=== PATIENT | female | born 1935 | race Caucasian/White ===

== ENCOUNTER 2016-06-15 23:33 | Inpatient (IN) ==
--- NOTE | 2016-06-15 23:45 | Emergency Department Note ---
Disposition Clinical Impression: Acute renal insufficiency Urinary tract infection Qualifiers: Urinary tract infection type: site unspecified Hematuria presence: without hematuria Qualified Code(s): N39.0 - Urinary tract infection, site not specified Nausea and vomiting Qualifiers: Vomiting type: unspecified Vomiting Intractability: non-intractable Qualified Code(s): R11.2 - Nausea with vomiting, unspecified Disposition: Admitted As Inpatient Condition: Fair Forms: ED Satisfaction Letter Time of Disposition: 02:41 Nausea/Vomiting/Diarrhea HPI - General Chief complaint: ED Nausea/Vomiting/Diarrhea Stated complaint: N/V Time Seen by Provider: 06/15/16 23:34 Source: patient, EMS Limitations: no limitations Nursing Notes Reviewed: Yes Vital Signs Reviewed: Yes - History of Present Illness HPI Narrative: 80-year-old female is brought to the emergency department for evaluation of nausea, vomiting, and abdominal pain that began 2 days ago. She states that her nausea and vomiting became suddenly worse this evening. She claims to have had 3 episodes of vomiting since early this evening. She states that her emesis is brownish in color. She denies any constipation, or diarrhea. She also complains of some right upper quadrant and right lower quadrant abdominal pain. She states she has a history of a hernia, but has not noticed any change in appearance to this area. She denies any fever, but complains of subjective chills. She denies any known sick contacts or recent foreign travel. She denies any blood in her emesis or in her stool. She does complain of some suprapubic pain and discomfort as well. She denies any chest pain, cough, or shortness of breath. Pt Subjective Complaint: nausea, vomiting, abdominal pain Onset (ago): day(s) (2 days) Number of episodes of emesis: 3 (Since early this evening) Associated Abdominal Pain: Yes If pain, Location of pain: RUQ, RLQ Severity: moderate Severity scale (1-10): 5 Quality: aching Improves with: nothing Worsens with: nonthing Associated symptoms: Reports: fever/chills (Subjective chills). Denies: chest pain, cough, shortness of breath - Related Data Home Medications Medication Instructions Recorded Confirmed Ascorbate Calcium [Vitamin C] 500 mg PO DAILY 04/15/15 02/07/16 Aspirin [Adult Low Dose Aspirin EC] 81 mg PO DAILY 04/15/15 02/07/16 Atorvastatin Calcium [Lipitor] 40 mg PO DAILY 04/15/15 02/07/16 Bisacodyl [Dulcolax] 5 mg PO DAILY PRN 04/15/15 02/07/16 Budesonide/Formoterol 160/4.5 2 puff IH BID 04/15/15 02/07/16 [Symbicort 160/4.5] Clopidogrel [Plavix] 75 mg PO DAILY 04/15/15 02/07/16 Ferrous Sulfate 325 mg PO DAILY 04/15/15 02/07/16 Folic Acid 1 mg PO DAILY #0 04/15/15 02/07/16 Furosemide [Lasix] 40 mg PO BID PRN 04/15/15 02/07/16 GlipiZIDE [Glipizide Xl] 5 mg PO DAILY 04/15/15 02/07/16 Lansoprazole [Prevacid] 30 mg PO DAILY 04/15/15 02/07/16 Levalbuterol HCl [Xopenex Neb] 1.25 mg IH QID PRN 04/15/15 02/07/16 Levothyroxine [Synthroid] 75 mcg PO DAILY 04/15/15 02/07/16 Meclizine [Antivert] 12.5 mg PO QID PRN 04/15/15 02/07/16 Metformin HCl [Fortamet] 500 mg PO BIDWM 04/15/15 02/07/16 Metoclopramide HCl 5 mg PO QID PRN 04/15/15 02/07/16 Metoprolol XL (24 HR) Succ [Toprol 25 mg PO DAILY 04/15/15 02/07/16 Xl] Oxycodone HCl/Acetaminophen 1 tab PO Q6H PRN 04/15/15 02/07/16 [Percocet 10-325 mg Tablet] Sertraline HCl [Zoloft] 100 mg PO DAILY 04/15/15 02/07/16 Gabapentin [Neurontin] 300 mg PO TID 11/26/15 02/07/16 Lisinopril [Zestril] 20 mg PO DAILY 11/26/15 02/07/16 Previous Rx's Medication Instructions Recorded Nystatin POWDER [Nystop] 1 appl TP TID #1 bottle 01/04/16 PredniSONE 40 mg PO DAILY 3 Days 01/04/16 Amiodarone [Cordarone] 200 mg PO DAILY #30 tablet 02/25/16 Diltiazem CD (24hr) [Cardizem CD] 360 mg PO DAILY #30 cap.er.24h 02/25/16 Metoprolol XL (24 HR) Succ [Toprol 75 mg PO DAILY #30 tab.er.24h 02/25/16 Xl] PredniSONE 40 mg PO DAILY #5 tablet 02/25/16 Allergies Allergy/AdvReac Type Severity Reaction Status Date / Time Sulfa (Sulfonamide Allergy Severe Swelling Verified 05/03/16 14:43 Antibiotics) of Lip/Tongue/Throat All systems ED: reviewed and negative except as stated. Constitutional: Denies: fever, chills, weakness, weight change Eyes: Denies: eye pain, eye discharge, vision change ENT ED: Denies: ear pain, throat pain, dental pain, hearing loss, epistaxis, congestion, dysphagia Cardiovascular: Denies: chest pain, palpitations, dyspnea on exertion, edema, syncope Respiratory: Denies: cough, dyspnea, wheezes, hemoptysis, stridor Gastrointestinal: Reports: as per HPI, abdominal pain, nausea, vomiting. Denies : diarrhea, constipation, hematemesis, melena, hematochezia Genitourinary: Denies: dysuria, frequency, hematuria, discharge Musculoskeletal: Denies: back pain, neck pain, arthralgia, myalgia Integumentary: Denies: rash, abrasion, lesions Neurological: Denies: headache, weakness, numbness, paresthesias, confusion, abnormal gait, vertigo Psychiatric: Denies: anxiety, depression, suicidal thoughts, homicidal thoughts , auditory hallucinations, visual hallucinations Endocrine: Denies: fatigue Hematological/Lymphatic: Denies: easy bleeding, easy bruising Allergic/Immunologic: Denies: facial swelling, urticaria Past Medical History - Past Medical History Attestation: Yes The following information was validated with the patient. Source: patient Medical history: Reports: atrial fibrillation, cancer, CHF, COPD, CVA, diabetes , hyperlipidemia, hypertension, myocardial infarction Surgical history: Reports: carotid endarterectomy, herniorrhaphy, hysterectomy Psychiatric history: Reports: no psych history - Social History Smoking Status: Never smoker Smokeless Tobacco Status: No Alcohol use: Reports: none Drug use: Reports: none Physical Exam - General Limitations: no limitations General appearance: alert, in no apparent distress - Head Head exam: atraumatic, normocephalic, normal inspection - Eye Eye exam: Present: normal appearance, PERRL, EOMI. Absent: nystagmus - ENT ENT exam: mucous membranes moist - Neck Neck exam: Present: normal inspection, full ROM, trachea midline - Chest Chest inspection: Present: normal inspection, symmetric chest wall rise - Respiratory Respiratory exam: Present: normal lung sounds bilaterally. Absent: respiratory distress, wheezes, stridor, accessory muscle use, prolonged expiratory phase - Cardiovascular Cardiovascular exam: Present: regular rate, normal rhythm, normal heart sounds - Abdominal Exam Abdominal exam: Present: soft, tenderness, hernia (Large hernia noted, right lower quadrant. Patient states appearance unchanged.). Absent: distention, guarding, rebound, rigidity Abdominal tenderness: Present: suprapubic, moderate - Extremities Exam Extremities exam: Present: normal inspection, full ROM. Absent: tenderness, pedal edema - Back Exam Back exam: Present: normal inspection, full ROM. Absent: tenderness - Neurological Exam Neurological exam: Present: alert, oriented X3 - Psychiatric Psychiatric exam: Present: normal affect, normal mood - Skin Skin exam: Present: warm, dry, intact, normal color Course Course Narrative: I have discussed this patient's case with Dr. Harper. Dr. Harper has had a face -to-face evaluation with the patient. He recommends admission to the hospitalist service for further evaluation of her renal function as well as a urinary tract infection/nausea and vomiting. 0230: I spoke with Dr. Gonzalez of the hospitalist service. She accepts the patient for admission. Vital Signs Temperature 97.7 F 06/15/16 23:34 Pulse Rate 65 06/15/16 23:34 Respiratory Rate 18 06/15/16 23:34 Blood Pressure 109/52 06/15/16 23:34 O2 Sat by Pulse Oximetry 97 06/15/16 23:34 Temperature 97.7 F 06/15/16 23:34 Pulse Rate 70 06/16/16 01:22 Respiratory Rate 18 06/16/16 01:22 Blood Pressure 90/46 06/16/16 01:22 O2 Sat by Pulse Oximetry 99 06/16/16 01:22 Oxygen Delivery Oxygen Delivery Nasal Cannula Nausea/Vomiting/Diarrhea - Medical Records Medical records reviewed: Yes I reviewed the patient's medical records. - Lab Data Lab results reviewed: Yes I reviewed the patient's lab results. Lab results narrative: Laboratory Last Values WBC 15.2 K/mcL (4.3-11.1) H 06/15/16 23:54 RBC 4.19 M/mcL (3.82-4.97) 06/15/16 23:54 Hgb 12.7 g/dL (11.5-15.4) 06/15/16 23:54 Hct 38.0 % (35.3-44.9) 06/15/16 23:54 MCV 90.7 fL (83.0-100.0) 06/15/16 23:54 MCH 30.3 pg (28.0-33.3) 06/15/16 23:54 MCHC 33.4 g/dL (31.6-35.5) 06/15/16 23:54 RDW 12.7 % (11.5-14.5) 06/15/16 23:54 Plt Count 183 K/mcL (140-400) 06/15/16 23:54 MPV 11.5 fL (9.4-12.4) 06/15/16 23:54 Immature Gran % 0.5 % (0-4) 06/15/16 23:54 Seg Neutrophils % 88.3 % 06/15/16 23:54 Lymphocytes % 6.1 % 06/15/16 23:54 Monocytes % 4.5 % 06/15/16 23:54 Eosinophils % 0.4 % 06/15/16 23:54 Basophils % 0.2 % 06/15/16 23:54 Neutrophils # 13.5 K/mcL (1.6-8.9) H 06/15/16 23:54 Lymphocytes # 0.9 K/mcL (0.6-4.6) 06/15/16 23:54 Monocytes # 0.7 K/mcL (0.0-1.3) 06/15/16 23:54 Eosinophils # 0.1 K/mcL (0.0-0.6) 06/15/16 23:54 Basophils # 0.0 K/mcL (0.0-0.2) 06/15/16 23:54 Sodium 137 mEq/L (136-145) 06/15/16 23:54 Potassium 4.3 mEq/L (3.5-4.5) 06/15/16 23:54 Chloride 96 mEq/L (98-109) L 06/15/16 23:54 Carbon Dioxide 28 mEq/L (19-29) 06/15/16 23:54 BUN 36 mg/dL (7-20) H 06/15/16 23:54 Creatinine 1.38 mg/dL (0.57-1.11) H 06/15/16 23:54 Est GFR ( Amer) 45 (> 60) L 06/15/16 23:54 Est GFR (Non-Af Amer) 37 (> 60) L 06/15/16 23:54 BUN/Creatinine Ratio 26 (6-26) 06/15/16 23:54 Glucose 166 mg/dL (70-99) H 06/15/16 23:54 Calculated Osmolality 296 (280-300) 06/15/16 23:54 Calcium 8.8 mg/dL (8.6-10.8) 06/15/16 23:54 Total Bilirubin 0.5 mg/dL (0.2-1.2) 06/15/16 23:54 Direct Bilirubin 0.2 mg/dL (0.0-0.5) 06/15/16 23:54 Indirect Bilirubin 0.3 mg/dL (0.0-1.2) 06/15/16 23:54 AST 20 Units/L (5-34) 06/15/16 23:54 ALT 12 Units/L (0-55) 06/15/16 23:54 Alkaline Phosphatase 79 Units/L (38-126) 06/15/16 23:54 Serum Total Protein 6.1 g/dL (6.0-8.3) 06/15/16 23:54 Albumin 3.4 g/dL (3.5-5.0) L 06/15/16 23:54 Globulin 2.7 g/dL (2.4-3.5) 06/15/16 23:54 Albumin/Globulin Ratio 1.3 (1.1-2.2) 06/15/16 23:54 Lipase 53 Units/L (8-78) 06/15/16 23:54 Urine Color Dark Yellow (Yellow) 06/16/16 00:17 Urine Clarity Cloudy (Clear) A 06/16/16 00:17 Urine pH 5.5 pH Units (5.0-8.0) 06/16/16 00:17 Ur Specific [place] 1.020 (1.010-1.025) 06/16/16 00:17 Urine Protein Negative mg/dL (Neg-Trace) 06/16/16 00:17 Urine Glucose (UA) Normal mg/dL (Normal) 06/16/16 00:17 Urine Ketones Trace mg/dL (Negative) H 06/16/16 00:17 Urine Blood Negative (Negative) 06/16/16 00:17 Urine Nitrite Negative (Negative) 06/16/16 00:17 Urine Bilirubin Small (Negative) H 06/16/16 00:17 Urine Urobilinogen Normal mg/dL (Normal) 06/16/16 00:17 Ur Leukocyte Esterase Large (Negative) H 06/16/16 00:17 Urine Microscopic RBC 0-3 per hpf (0-3) 06/16/16 00:17 Urine Microscopic WBC 50-100 per hpf (0-3) H 06/16/16 00:17 Ur Squamous Epith Cells Many per lpf (None-Few) H 06/16/16 00:17 Urine Bacteria Many per hpf (None-Few) H 06/16/16 00:17 Hyaline Casts Few per lpf (None-Few) 06/16/16 00:17 Ur Culture Indicated? YES (NO) A 06/16/16 00:17 Result diagrams: 06/15/16 23:54 06/15/16 23:54 Lab Results 06/15/16 06/15/16 06/15/16 Range/Units 23:54 23:54 23:54 WBC 15.2 H (4.3-11.1) K/mcL RBC 4.19 (3.82-4.97) M/mcL Hgb 12.7 (11.5-15.4) g/dL Hct 38.0 (35.3-44.9) % MCV 90.7 (83.0-100.0) fL MCH 30.3 (28.0-33.3) pg MCHC 33.4 (31.6-35.5) g/dL RDW 12.7 (11.5-14.5) % Plt Count 183 (140-400) K/mcL MPV 11.5 (9.4-12.4) fL Immature Gran % 0.5 (0-4) % Seg Neutrophils % 88.3 % Lymphocytes % 6.1 % Monocytes % 4.5 % Eosinophils % 0.4 % Basophils % 0.2 % Neutrophils # 13.5 H (1.6-8.9) K/mcL Lymphocytes # 0.9 (0.6-4.6) K/mcL Monocytes # 0.7 (0.0-1.3) K/mcL Eosinophils # 0.1 (0.0-0.6) K/mcL Basophils # 0.0 (0.0-0.2) K/mcL Sodium 137 (136-145) mEq/L Potassium 4.3 (3.5-4.5) mEq/L Chloride 96 L (98-109) mEq/L Carbon Dioxide 28 (19-29) mEq/L BUN 36 H (7-20) mg/dL Creatinine 1.38 H (0.57-1.11) mg/dL Est GFR ( Amer) 45 L (> 60) Est GFR (Non-Af Amer) 37 L (> 60) BUN/Creatinine Ratio 26 (6-26) Glucose 166 H (70-99) mg/dL Calculated Osmolality 296 (280-300) Calcium 8.8 (8.6-10.8) mg/dL Total Bilirubin 0.5 0.5 (0.2-1.2) mg/dL Direct Bilirubin 0.2 (0.0-0.5) mg/dL Indirect Bilirubin 0.3 (0.0-1.2) mg/dL AST 21 20 (5-34) Units/L ALT 11 12 (0-55) Units/L Alkaline Phosphatase 79 79 (38-126) Units/L Serum Total Protein 6.2 6.1 (6.0-8.3) g/dL Albumin 3.4 L 3.4 L (3.5-5.0) g/dL Globulin 2.8 2.7 (2.4-3.5) g/dL Albumin/Globulin Ratio 1.2 1.3 (1.1-2.2) Lipase 53 (8-78) Units/L Urine Color (Yellow) Urine Clarity (Clear) Urine pH (5.0-8.0) pH Units Ur Specific [place] (1.010-1.025) Urine Protein (Neg-Trace) mg/dL Urine Glucose (UA) (Normal) mg/dL Urine Ketones (Negative) mg/dL Urine Blood (Negative) Urine Nitrite (Negative) Urine Bilirubin (Negative) Urine Urobilinogen (Normal) mg/dL Ur Leukocyte Esterase (Negative) Urine Microscopic RBC (0-3) per hpf Urine Microscopic WBC (0-3) per hpf Ur Squamous Epith Cells (None-Few) per lpf Urine Bacteria (None-Few) per hpf Hyaline Casts (None-Few) per lpf Ur Culture Indicated? (NO) 06/16/16 Range/Units 00:17 WBC (4.3-11.1) K/mcL RBC (3.82-4.97) M/mcL Hgb (11.5-15.4) g/dL Hct (35.3-44.9) % MCV (83.0-100.0) fL MCH (28.0-33.3) pg MCHC (31.6-35.5) g/dL RDW (11.5-14.5) % Plt Count (140-400) K/mcL MPV (9.4-12.4) fL Immature Gran % (0-4) % Seg Neutrophils % % Lymphocytes % % Monocytes % % Eosinophils % % Basophils % % Neutrophils # (1.6-8.9) K/mcL Lymphocytes # (0.6-4.6) K/mcL Monocytes # (0.0-1.3) K/mcL Eosinophils # (0.0-0.6) K/mcL Basophils # (0.0-0.2) K/mcL Sodium (136-145) mEq/L Potassium (3.5-4.5) mEq/L Chloride (98-109) mEq/L Carbon Dioxide (19-29) mEq/L BUN (7-20) mg/dL Creatinine (0.57-1.11) mg/dL Est GFR ( Amer) (> 60) Est GFR (Non-Af Amer) (> 60) BUN/Creatinine Ratio (6-26) Glucose (70-99) mg/dL Calculated Osmolality (280-300) Calcium (8.6-10.8) mg/dL Total Bilirubin (0.2-1.2) mg/dL Direct Bilirubin (0.0-0.5) mg/dL Indirect Bilirubin (0.0-1.2) mg/dL AST (5-34) Units/L ALT (0-55) Units/L Alkaline Phosphatase (38-126) Units/L Serum Total Protein (6.0-8.3) g/dL Albumin (3.5-5.0) g/dL Globulin (2.4-3.5) g/dL Albumin/Globulin Ratio (1.1-2.2) Lipase (8-78) Units/L Urine Color Dark Yellow (Yellow) Urine Clarity Cloudy A (Clear) Urine pH 5.5 (5.0-8.0) pH Units Ur Specific [place] 1.020 (1.010-1.025) Urine Protein Negative (Neg-Trace) mg/dL Urine Glucose (UA) Normal (Normal) mg/dL Urine Ketones Trace H (Negative) mg/dL Urine Blood Negative (Negative) Urine Nitrite Negative (Negative) Urine Bilirubin Small H (Negative) Urine Urobilinogen Normal (Normal) mg/dL Ur Leukocyte Esterase Large H (Negative) Urine Microscopic RBC 0-3 (0-3) per hpf Urine Microscopic WBC 50-100 H (0-3) per hpf Ur Squamous Epith Cells Many H (None-Few) per lpf Urine Bacteria Many H (None-Few) per hpf Hyaline Casts Few (None-Few) per lpf Ur Culture Indicated? YES A (NO) - Radiology Data Radiology results reviewed: Yes I reviewed the patient's radiology results. Abdomen/Pelvis CT 06/16/16 00:35 IMPRESSION: Dilated small bowel again identified within a very large ventral hernia. This is a chronic finding and may represent a low-grade partial small bowel obstruction. No definite acute process identified. D/ / Christiano Madison MD / Christiano Madison MD Interpreting Provider: Christiano Madison MD Chest X-Ray 06/16/16 00:35 IMPRESSION: No acute lung consolidation. D/ / Warren Arrieta MD / Warren Arrieta MD Interpreting Provider: Warren Arrieta MD - EKG Data EKG attestation: Yes I reviewed and interpreted this EKG. EKG results narrative: EKG reviewed by Dr. Harper as well. EKG shows a supraventricular rhythm with nonspecific T wave abnormality at a rate of 64 bpm. No STEMI noted.
[2016-06-16] LABS: Basophils % 0.2 %; Eosinophils # 0.1 K/mcL (0.0-0.6); Eosinophils % 0.4 %; Hemoglobin 12.7 g/dL (11.5-15.4); Immature Granulocytes % 0.5 % (0-4); Lymphocytes # 0.9 K/mcL (0.6-4.6); Lymphocytes % 6.1 %; Mean Corpuscular HGB Conc 33.4 g/dL (31.6-35.5); Mean Corpuscular Hemoglobin 30.3 pg (28.0-33.3); Mean Corpuscular Volume 90.7 fL (83.0-100.0); Mean Platelet Volume 11.5 fL (9.4-12.4); Monocytes # 0.7 K/mcL (0.0-1.3); Monocytes % 4.5 %; Neutrophils # 13.5 K/mcL (1.6-8.9); Platelet Count 183 K/mcL (140-400); Red Blood Count 4.19 M/mcL (3.82-4.97); Red Cell Distribution Width 12.7 % (11.5-14.5); Segmented Neutrophils % 88.3 %
[2016-06-16 00:17] LABS: Albumin 3.4 g/dL (3.5-5.0); Albumin/Globulin Ratio 1.2 (1.1-2.2); Albumin/Globulin Ratio 1.3 (1.1-2.2); Bilirubin,Direct 0.2 mg/dL (0.0-0.5); Bilirubin,Indirect 0.3 mg/dL (0.0-1.2); Bilirubin,Total 0.5 mg/dL (0.2-1.2); Calcium 8.8 mg/dL (8.6-10.8); Globulin 2.7 g/dL (2.4-3.5); Globulin 2.8 g/dL (2.4-3.5); Potassium 4.3 mEq/L (3.5-4.5); Total Protein 6.1 g/dL (6.0-8.3); Total Protein 6.2 g/dL (6.0-8.3)
[2016-06-16 00:24] LABS: Bilirubin,Urine Small (Negative); Blood,Urine Negative (Negative); Clarity,Urine Cloudy (Clear); Color,Urine Dark Yellow (Yellow); Glucose,Urine (UA) Normal (Normal); Ketones,Urine Trace mg/dL (Negative); Leukocyte Esterase,Urine Large (Negative); Nitrite,Urine Negative (Negative); PH,Urine 5.5 pH Units (5.0-8.0); Protein,Urine Negative (Neg-Trace); Urobilinogen,Urine Normal (Normal)
[2016-06-16 00:25] LABS: Bacteria,Urine Many per hpf (None-Few); Hyaline Casts,Urine Few per lpf (None-Few); Squamous Epithelial Cell,Urine Many per lpf (None-Few); WBC,Urine 50-100 per hpf (0-3)
[2016-06-16 00:35] LABS: RBC,Urine 0-3 per hpf (0-3)
[2016-06-16] MEDS ORDERED: 0.9 % Sodium Chloride 500 ML IVC ONE (02:36)
[2016-06-16] MEDS ORDERED: Naloxone 0.4 MG/ML INJ IVP PRN (03:33)
[2016-06-16] MEDS ORDERED: Ondansetron 4 MG/2 ML VIAL IVP PRN (03:33)
[2016-06-16] MEDS ORDERED: Acetaminophen 325 MG TABLET PO PRN (03:33)
--- NOTE | 2016-06-16 03:41 | Internal Med History&Physical ---
Date of Encounter: 06/16/16 Time of Encounter: 03:30 Assessment and Plan (1) UTI (urinary tract infection) Current visit: No Status: Resolved With leukocytosis. - Urine culture pending - IV fluids resuscitation - Ceftriaxone started in ER, will continue Qualifiers: Urinary tract infection type: site unspecified Hematuria presence: without hematuria Qualified Code(s): N39.0 - Urinary tract infection, site not specified (2) A-fib Current visit: No Status: Chronic Rate controlled. - Continue home rate control medications - Monitor on telemetry Qualifiers: Atrial fibrillation type: chronic Qualified Code(s): I48.2 - Chronic atrial fibrillation (3) Acute renal insufficiency Current visit: Yes Status: Acute Mild, likely prerenal issue secondary to volume depletion in setting of UTI. - Urine lytes - Volume resuscitation - Hold ACEI - Avoid nephrotoxins (4) Diabetes mellitus Current visit: No Status: Chronic Hold PO agents - SSI while admitted Qualifiers: Diabetes mellitus type: type 2 Diabetes mellitus complication status: with hyperglycemia Diabetes mellitus senior living insulin use: without senior living use Qualified Code(s): E11.65 - Type 2 diabetes mellitus with hyperglycemia Internal Medicine - H&P: HPI Chief complaint: abdominal pain, nausea Admitted From: Emergency Dept Plans for Post Hospital Care: Home History of present illness: Ms. Mascorro is a 80 year old female with history of atrial fibrillation, large ventral hernia, and diabetes [facility] and nausea. She states her current symptoms are similar to when she has had a UTI in the past. She has chronic abdominal pain secondary to her large ventral hernia, and this is unchanged from baseline. She was nauseated and vomited today. Family present at bedside note that the patient was mildly confused today. She denies chest pain or shortness of breath. She states that she is DNR-CC/DNI and does not want aggressive interventions. She did not eat or drink well today because she was feeling poorly. In the ER her BP is 80s/50s - she notes that her blood pressure is low sometimes and she is unsure why. Past Med Surg Social Fam HX - Past Medical History Medical history: atrial fibrillation, cancer, CHF, COPD, CVA, diabetes, hyperlipidemia, hypertension, myocardial infarction Psychiatric history: no psych history - Past Surgical History Surgical History: carotid endarterectomy, herniorrhaphy, hysterectomy - Social History Smoking Status: Never smoker Smokeless Tobacco Status: No Alcohol use: none Drug use: none - Family History Mother Family Member Ethnicity: Non- Living Status: Hx Family Cardiac Disorders: Yes ( of [place]) Hx Family Respiratory Disorders: No Hx Family Cancer: No Hx Family GI Disorders: No Hx Family Endocrine Disorder: No Hx Family Neuromuscular Disorders: No Hx Family Neurologic Disorders: No Hx Family HEENT Disorders: No Hx Family Autoimmune Disorders: No Internal Medicine - H&P: Meds Ascorbate Calcium [Vitamin C] 500 mg PO DAILY 04/15/15 [History] Aspirin [Adult Low Dose Aspirin EC] 81 mg PO DAILY 04/15/15 [History] Atorvastatin Calcium [Lipitor] 40 mg PO DAILY 04/15/15 [History] Bisacodyl [Dulcolax] 5 mg PO DAILY PRN 04/15/15 [History] Budesonide/Formoterol 160/4.5 [Symbicort 160/4.5] 2 puff IH BID 04/15/15 [ History] Clopidogrel [Plavix] 75 mg PO DAILY 04/15/15 [History] Ferrous Sulfate 325 mg PO DAILY 04/15/15 [History] Folic Acid 1 mg PO DAILY #0 04/15/15 [History] Furosemide [Lasix] 40 mg PO BID PRN 04/15/15 [History] GlipiZIDE [Glipizide Xl] 5 mg PO DAILY 04/15/15 [History] Lansoprazole [Prevacid] 30 mg PO DAILY 04/15/15 [History] Levalbuterol HCl [Xopenex Neb] 1.25 mg IH QID PRN 04/15/15 [History] Levothyroxine [Synthroid] 75 mcg PO DAILY 04/15/15 [History] Meclizine [Antivert] 12.5 mg PO QID PRN 04/15/15 [History] Metformin HCl [Fortamet] 500 mg PO BIDWM 04/15/15 [History] Metoclopramide HCl 5 mg PO QID PRN 04/15/15 [History] Metoprolol XL (24 HR) Succ [Toprol Xl] 25 mg PO DAILY 04/15/15 [History] Oxycodone HCl/Acetaminophen [Percocet 10-325 mg Tablet] 1 tab PO Q6H PRN [History] Sertraline HCl [Zoloft] 100 mg PO DAILY 04/15/15 [History] Gabapentin [Neurontin] 300 mg PO TID 11/26/15 [History] Lisinopril [Zestril] 20 mg PO DAILY 11/26/15 [History] Nystatin POWDER [Nystop] 1 appl TP TID #1 bottle 01/04/16 [Rx] PredniSONE 40 mg PO DAILY 3 Days 01/04/16 [Rx] Amiodarone [Cordarone] 200 mg PO DAILY #30 tablet 02/25/16 [Rx] Diltiazem CD (24hr) [Cardizem CD] 360 mg PO DAILY #30 cap.er.24h 02/25/16 [Rx] Metoprolol XL (24 HR) Succ [Toprol Xl] 75 mg PO DAILY #30 tab.er.24h 02/25/16 [ Rx] PredniSONE 40 mg PO DAILY #5 tablet 02/25/16 [Rx] Allergies Sulfa (Sulfonamide Antibiotics) Allergy (Severe, Verified 05/03/16 14:43) Swelling of Lip/Tongue/Throat All Systems PM: A 10-system review of systems was performed and is negative for pertinent findings except as documented above in the HPI. - Constitutional Vitals: Temp Pulse Resp BP Pulse Ox 97.7 F 118 26 142/92 92 06/15/16 23:34 06/16/16 02:56 06/16/16 02:56 06/16/16 02:56 06/16/16 02:56 General appearance: Present: A&O X 3, pleasant, no acute distress - Head Head exam: Present: atraumatic - Eye Eye exam: Present: EOMI - Neck Neck exam general surgery: Present: supple - Respiratory Respiratory exam: Present: CTAB - Cardiovascular Cardiovascular exam: Present: RRR. Absent: diastolic murmur, gallop, rubs, systolic murmur - GI/Abdominal GI/Abdominal exam: Present: soft Additional comments: Large ventral hernia with mild tenderness with palpation. Bowel sounds normal. No rebound or guarding. - Extremities Exam Extremities exam: Absent: pedal edema - Neurological Exam Neurological exam: Present: no focal deficits - Skin Skin exam: Absent: rash Internal Med - H&P Results - Labs CBC & Chem 7: 06/15/16 23:54 06/15/16 23:54
[2016-06-16] MEDS ORDERED: 0.9 % Sodium Chloride 1,000 ML IVC SCH (03:45)
[2016-06-16] MEDS ORDERED: *HR* Dextrose 50 % in Water (Syg) 50 ML SYRINGE IVP PRN (03:48)
[2016-06-16] MEDS ORDERED: Dextrose Gel 15 GM PO PRN ×2 (03:48)
[2016-06-16] MEDS ORDERED: D5% in Water 1,000 ML IVC PRN (03:48)
[2016-06-16 04:51] LABS: Basophils % 0.2 %; Eosinophils % 0.2 %; Hematocrit 37.7 % (35.3-44.9); Hemoglobin 12.2 g/dL (11.5-15.4); Immature Granulocytes % 0.3 % (0-4); Lymphocytes # 1.6 K/mcL (0.6-4.6); Lymphocytes % 12.8 %; Mean Corpuscular HGB Conc 32.4 g/dL (31.6-35.5); Mean Corpuscular Hemoglobin 29.8 pg (28.0-33.3); Mean Platelet Volume 11.6 fL (9.4-12.4); Monocytes # 0.6 K/mcL (0.0-1.3); Monocytes % 5.2 %; Neutrophils # 9.8 K/mcL (1.6-8.9); Platelet Count 193 K/mcL (140-400); Red Cell Distribution Width 12.7 % (11.5-14.5); Segmented Neutrophils % 81.3 %
[2016-06-16 04:56] LABS: Calcium 8.7 mg/dL (8.6-10.8); Potassium 4.6 mEq/L (3.5-4.5)
[2016-06-16] MEDS ORDERED: *HR* OxyCODONE/APAP 10/325 TABLET PO PRN (05:20)
[2016-06-16] MEDS: Insulin LISPRO 300 UNITS/3 ML VIAL SQ SCH ×4 (07:07→21:07)
[2016-06-16] MEDS: Budesonide/Formoterol 160/4.5 MDI IH SCH ×2 (07:55→19:50)
[2016-06-16] MEDS ORDERED: Metoprolol XL (24 HR) Succ 50 MG TAB.ER.24H PO SCH (09:00)
[2016-06-16] MEDS: Aspirin Enteric Coated 81 MG Tablet PO SCH (09:11)
[2016-06-16] MEDS: Metoprolol XL (24 HR) Succ 50 MG TAB.ER.24H PO SCH (09:11)
[2016-06-16] MEDS: Gabapentin 300 MG CAPSULE PO SCH ×3 (09:11→21:06)
[2016-06-16] MEDS: Folic Acid 1 MG TABLET PO SCH (09:12)
[2016-06-16] MEDS: *HR* Amiodarone 200 MG TABLET PO SCH (09:12)
[2016-06-16] MEDS: Ascorbic Acid 500 MG TABLET PO SCH (09:12)
[2016-06-16] MEDS: Diltiazem CD (24hr) 180 MG CAPSULE PO SCH (09:12)
[2016-06-16] MEDS: Nystatin POWDER 30 GM BOTTLE TP SCH ×3 (09:13→21:07)
--- NOTE | 2016-06-16 11:05 | Internal Med Progress Note ---
Date of Encounter: 06/16/16 Time of Encounter: 11:05 - Assessment and plan (1) Sepsis Current Visit: Yes Status: Acute Assessment and plan: Patient meets sepsis criteria with tachycardia, leukocytosis and a UTI tachycardia has resolved, lactate is WNL, PLT is WNL She also has a low BP on presentation which has responded to IVF hydration Source is UTI, pending culture Blood culture not drawn Patient s afebrile Leukocytosis is improving Continue Ceftriaxone Continue IVF hydration Qualifiers: Sepsis type: sepsis due to unspecified organism Qualified Code(s): A41.9 - Sepsis, unspecified organism (2) TEO (acute kidney injury) Current Visit: Yes Status: Acute Assessment and plan: Pre-renal, non oliguric Possibly from dehydration Continue IVF hydration Avoid nephrotoxins (3) Urinary tract infection Current Visit: Yes Status: Acute Assessment and plan: Follow cultures Continue Ceftriaxone Qualifiers: Urinary tract infection type: site unspecified Hematuria presence: without hematuria Qualified Code(s): N39.0 - Urinary tract infection, site not specified (4) CAD (coronary artery disease) Current Visit: Yes Status: Chronic Assessment and plan: Continue home meds Qualifiers: Coronary Disease-Associated Artery/Lesion type: [place] artery [place] vs. transplanted heart: [place] heart Associated angina: without angina Qualified Code(s): I25.10 - Atherosclerotic heart disease of [place] coronary artery without angina pectoris (5) COPD (chronic obstructive pulmonary disease) Current Visit: Yes Status: Chronic Assessment and plan: Stale, not wheezing Duonebs prn Continue home meds Qualifiers: COPD type: unspecified COPD Qualified Code(s): J44.9 - Chronic obstructive pulmonary disease, unspecified (6) DMII (diabetes mellitus, type 2) Current Visit: Yes Status: Chronic Assessment and plan: Controlled A1C 5.8 Monitor FS ADA diet Qualifiers: Diabetes mellitus complication status: with unspecified complications Diabetes mellitus mcc insulin use: without production control coordinator use Qualified Code( s): E11.8 - Type 2 diabetes mellitus with unspecified complications (7) HLD (hyperlipidemia) Current Visit: Yes Status: Chronic Assessment and plan: Continue home meds Qualifiers: Hyperlipidemia type: unspecified Qualified Code(s): E78.5 - Hyperlipidemia , unspecified (8) HTN (hypertension) Current Visit: Yes Status: Chronic Assessment and plan: Controlled BP low on admission, improving Decrease toprol to 50 Continue to monitor Qualifiers: Hypertension type: essential hypertension Qualified Code(s): I10 - Essential (primary) hypertension (9) Hypothyroidism Current Visit: Yes Status: Chronic Assessment and plan: Continue synthroid Qualifiers: Hypothyroidism type: unspecified Qualified Code(s): E03.9 - Hypothyroidism , unspecified - Subjective Interval history: Initial encounter 80 F, DNR-CC PMH of Afib on anticoagulation, DM, CHFpEF, CVA, DM, HLD, HTN, large vental hernia patient is being managed for Sepsis secondary to Complicated UTI, TEO secondary to dehydration from nausea and vomiting She is see at bedside with family and team members She denies new complains, and is having BM, she had a BM this a.m, she denies vomiting, she has some nausea She reports she has abdominal pain chronically due to her large ventral hernia, but she does not wish to pursue any intervention - Constitutional Vitals: Temp Pulse Resp BP Pulse Ox 97.8 F 56 16 98/51 99 06/16/16 07:01 06/16/16 07:01 06/16/16 07:01 06/16/16 07:01 06/16/16 07:01 General appearance: Present: A&O X 3, pleasant, no acute distress - Head Head exam: Present: atraumatic, normocephalic - Eye Eye exam: Present: PERRL, conjuntiva pink, sclera anicteric Pupils: Present: PERRL - Neck Neck exam general surgery: Present: supple, trachea midline. Absent: lymphadenopathy - Respiratory Respiratory exam: Present: CTAB. Absent: accessory muscle use, rales, rhonchi, wheezes - Cardiovascular Cardiovascular exam: Present: irregular rhythm, +S1, +S2, systolic murmur - GI/Abdominal Additional comments: Large ventral hernia, reducible, not tender, BS present, no suprapubic tenderness - Extremities Exam Extremities exam: Present: warm, radial pulses palpable and symetrical. Absent : calf tenderness, cyanotic, pedal edema - Back Exam Back exam: Absent: CVA tenderness (L), CVA tenderness (R) - Neurological Exam Neurological exam: Present: alert, CN II-XII intact, oriented X3, no focal deficits. Absent: pronater drift, facial droop, speech deficit - Skin Skin exam: Present: dry, intact Internal Medicine: Result - Labs CBC & Chem 7: 06/16/16 04:04 06/16/16 04:04 Labs: Short CBC 06/16/16 Range/Units 04:04 WBC 12.1 H (4.3-11.1) K/mcL Hgb 12.2 (11.5-15.4) g/dL Hct 37.7 (35.3-44.9) % Plt Count 193 (140-400) K/mcL Neutrophils # 9.8 H (1.6-8.9) K/mcL BMP 06/16/16 04:04 Sodium 139 Potassium 4.6 H Chloride 98 Carbon Dioxide 32 H BUN 36 H Creatinine 1.16 H Glucose 144 H Calcium 8.7 Consult Discharge Plan - Plan Referrals: Shasta Du, SANDY [Primary Care Provider] - 06/21/16 4:00 pm
[2016-06-16] MEDS: *HR* Heparin 5,000 UNIT/ML VIAL SQ SCH ×2 (14:26→21:06)
[2016-06-16] MEDS: 0.9 % Sodium Chloride 1,000 ML IVC SCH (16:11)
--- NOTE | 2016-06-16 18:10 | Electrocardiograph Report ---
[address] [address] Test Date: 2016-06-16 Pat Name: Sabrina Mascorro Department: 105 Room: 2A13 Gender: F Radiotelegraphist: BRISEYDA : 1935 Requested By: Cyril Patel Order Number: [id number] Reading MD: Ben Santiago MD Measurements Intervals [place] Rate: 64 P: [place]: 0 QRS: 48 QRSD: 85 T: 71 QT: 406 QTc: 416 Interpretive Statements JUNCTIONAL RHYTHM Electronically Signed On 06-16-2016 18:08:14 EDT by Ben Santiago MD
[2016-06-16] MEDS: *HR* OxyCODONE/APAP 10/325 TABLET PO PRN (21:07)
[2016-06-17 04:38] LABS: Basophils % 0.3 %; Eosinophils # 0.1 K/mcL (0.0-0.6); Eosinophils % 1.3 %; Hematocrit 34.4 % (35.3-44.9); Hemoglobin 10.8 g/dL (11.5-15.4); Immature Granulocytes % 0.4 % (0-4); Lymphocytes # 1.7 K/mcL (0.6-4.6); Lymphocytes % 25.3 %; Mean Corpuscular HGB Conc 31.4 g/dL (31.6-35.5); Mean Corpuscular Hemoglobin 29.8 pg (28.0-33.3); Mean Corpuscular Volume 94.8 fL (83.0-100.0); Mean Platelet Volume 11.2 fL (9.4-12.4); Monocytes # 0.5 K/mcL (0.0-1.3); Neutrophils # 4.4 K/mcL (1.6-8.9); Platelet Count 161 K/mcL (140-400); Red Blood Count 3.63 M/mcL (3.82-4.97); Red Cell Distribution Width 12.8 % (11.5-14.5); Segmented Neutrophils % 65.7 %
[2016-06-17 04:59] LABS: BUN/Creatinine Ratio 32 (6-26); Calcium 8.6 mg/dL (8.6-10.8); Carbon Dioxide 31 mEq/L (19-29); Chloride 104 mEq/L (98-109); Glucose 108 mg/dL (70-99); Osmolality,Calculated 293 (280-300); Potassium 4.8 mEq/L (3.5-4.5); Sodium 139 mEq/L (136-145); eGFR For African Americans > 60 (> 60); eGFR For Non-African Americans > 60 (> 60)
[2016-06-17 05:05] LABS: Blood Urea Nitrogen 24 mg/dL (7-20)
[2016-06-17] MEDS: *HR* Heparin 5,000 UNIT/ML VIAL SQ SCH ×3 (05:57→23:37)
[2016-06-17] MEDS: Budesonide/Formoterol 160/4.5 MDI IH SCH ×2 (08:02→21:45)
[2016-06-17] MEDS: Insulin LISPRO 300 UNITS/3 ML VIAL SQ SCH ×4 (08:21→20:16)
[2016-06-17] MEDS: Diltiazem CD (24hr) 180 MG CAPSULE PO SCH (08:23)
[2016-06-17] MEDS: Gabapentin 300 MG CAPSULE PO SCH ×3 (08:23→20:31)
[2016-06-17] MEDS: *HR* Amiodarone 200 MG TABLET PO SCH (08:23)
[2016-06-17] MEDS: Folic Acid 1 MG TABLET PO SCH (08:23)
[2016-06-17] MEDS: Aspirin Enteric Coated 81 MG Tablet PO SCH (08:23)
[2016-06-17] MEDS: Ascorbic Acid 500 MG TABLET PO SCH (08:23)
[2016-06-17] MEDS: Metoprolol XL (24 HR) Succ 50 MG TAB.ER.24H PO SCH (08:23)
[2016-06-17] MEDS: Nystatin POWDER 30 GM BOTTLE TP SCH ×3 (09:00→20:36)
[2016-06-17] MEDS ORDERED: Ipratropium/Albuterol Neb 3 ML IH PRN (09:54)
--- NOTE | 2016-06-17 11:51 | Internal Med Progress Note ---
Date of Encounter: 06/17/16 Time of Encounter: 11:51 - Assessment and plan (1) Sepsis Current Visit: Yes Status: Acute Assessment and plan: Patient met sepsis criteria on admission with tachycardia, leukocytosis and a UTI tachycardia has resolved, lactate is WNL, PLT is WNL, Leukocytosis has resolved this a.m BP has improved Urine culture with GNR, will await final result D/C IVF Continue ceftriaxone Qualifiers: Sepsis type: sepsis due to unspecified organism Qualified Code(s): A41.9 - Sepsis, unspecified organism (2) TEO (acute kidney injury) Current Visit: Yes Status: Resolved Assessment and plan: Pre-renal, non oliguric Resolved Encourage liberal fluid intake (3) Urinary tract infection Current Visit: Yes Status: Acute Assessment and plan: Follow cultures Continue Ceftriaxone Qualifiers: Urinary tract infection type: site unspecified Hematuria presence: without hematuria Qualified Code(s): N39.0 - Urinary tract infection, site not specified (4) CAD (coronary artery disease) Current Visit: Yes Status: Chronic Assessment and plan: Continue home meds Qualifiers: Coronary Disease-Associated Artery/Lesion type: [place] artery [place] vs. transplanted heart: [place] heart Associated angina: without angina Qualified Code(s): I25.10 - Atherosclerotic heart disease of [place] coronary artery without angina pectoris (5) COPD (chronic obstructive pulmonary disease) Current Visit: Yes Status: Chronic Assessment and plan: Stale, not wheezing Duonebs q4 Continue home meds Qualifiers: COPD type: unspecified COPD Qualified Code(s): J44.9 - Chronic obstructive pulmonary disease, unspecified (6) DMII (diabetes mellitus, type 2) Current Visit: Yes Status: Chronic Assessment and plan: Controlled A1C 5.8 Monitor FS ADA diet Qualifiers: Diabetes mellitus complication status: with unspecified complications Diabetes mellitus fpc insulin use: without fpc use Qualified Code( s): E11.8 - Type 2 diabetes mellitus with unspecified complications (7) HLD (hyperlipidemia) Current Visit: Yes Status: Chronic Assessment and plan: Continue home meds Qualifiers: Hyperlipidemia type: unspecified Qualified Code(s): E78.5 - Hyperlipidemia , unspecified (8) HTN (hypertension) Current Visit: Yes Status: Chronic Assessment and plan: Controlled Continue toprol 50 Continue to monitor Qualifiers: Hypertension type: essential hypertension Qualified Code(s): I10 - Essential (primary) hypertension (9) Hypothyroidism Current Visit: Yes Status: Chronic Assessment and plan: Continue synthroid Qualifiers: Hypothyroidism type: unspecified Qualified Code(s): E03.9 - Hypothyroidism , unspecified - Subjective Interval history: Initial encounter 80 F, DNR-CC PMH of Afib on anticoagulation, DM, CHFpEF, CVA, DM, HLD, HTN, large vental hernia patient is being managed for Sepsis secondary to Complicated UTI, TEO secondary to dehydration from nausea and vomiting She is seen at bedside with family and team members She reports she hasn't had any more vomiting since admission, she however feels short of breath this morning and wants to be resumed on her lasix She was not wheezing on exam, she has no evidence of fluid overload and her TEO has resolved Leukocytosis has improved - Constitutional Vitals: Temp Pulse Resp BP Pulse Ox 98.1 F 58 18 110/55 95 06/17/16 06:58 06/17/16 06:58 06/17/16 08:03 06/17/16 06:58 06/17/16 08:28 General appearance: Present: A&O X 3, pleasant, no acute distress - Head Head exam: Present: atraumatic, normocephalic - Eye Eye exam: Present: PERRL, conjuntiva pink, sclera anicteric Pupils: Present: PERRL - Neck Neck exam general surgery: Present: supple, trachea midline. Absent: lymphadenopathy - Respiratory Respiratory exam: Present: CTAB. Absent: accessory muscle use, rales, rhonchi, wheezes - Cardiovascular Cardiovascular exam: Present: irregular rhythm, +S1, +S2. Absent: diastolic murmur, gallop, rubs, systolic murmur - GI/Abdominal Additional comments: Large ventral hernia, reducible, not tender, BS present, no suprapubic tenderness - Extremities Exam Extremities exam: Present: warm, radial pulses palpable and symetrical. Absent : calf tenderness, cyanotic, pedal edema - Neurological Exam Neurological exam: Present: alert, CN II-XII intact, oriented X3, no focal deficits. Absent: pronater drift, facial droop, speech deficit - Skin Skin exam: Present: dry, intact Internal Medicine: Result - Labs CBC & Chem 7: 06/17/16 04:24 06/17/16 04:24 Labs: Short CBC 06/17/16 Range/Units 04:24 WBC 6.8 (4.3-11.1) K/mcL Hgb 10.8 L (11.5-15.4) g/dL Hct 34.4 L (35.3-44.9) % Plt Count 161 (140-400) K/mcL Neutrophils # 4.4 (1.6-8.9) K/mcL BMP 06/17/16 04:24 Sodium 139 Potassium 4.8 H Chloride 104 Carbon Dioxide 31 H BUN 24 H D Creatinine 0.75 Glucose 108 H Calcium 8.6 Consult Discharge Plan - Plan Referrals: Shasta Du, SANDY [Primary Care Provider] - 06/21/16 4:00 pm
[2016-06-17] MEDS: Furosemide 20 MG TABLET PO SCH (12:43)
[2016-06-17] MEDS: Ipratropium/Albuterol Neb 3 ML IH SCH ×2 (16:07→21:45)
[2016-06-17] MEDS ORDERED: methylPREDNISolone 125 MG/2 ML VIAL IVP ONE (17:44)
[2016-06-18] MEDS ORDERED: Ipratropium/Albuterol Neb 3 ML IH ONE (03:28)
[2016-06-18] MEDS: Ipratropium/Albuterol Neb 3 ML IH SCH ×4 (03:36→22:00)
[2016-06-18] MEDS ORDERED: Furosemide 40 MG/4 ML VIAL ONE (03:45)
[2016-06-18] MEDS: Furosemide 40 MG/4 ML VIAL IVP ONE ×3 (03:47→07:05)
[2016-06-18 04:43] LABS: ABG HCO3 29.2 mEQ/L (21-27); ABG Oxygen Saturation 89 % (95-98); ABG PO2 77 mmHg (85-104); ABG TCO2 32.1 mEq/L (20-26); Blood Gas FiO2 60 %
[2016-06-18 04:46] LABS: ABG PCO2 94 mmHg (35-45)
[2016-06-18] MEDS: *HR* Heparin 5,000 UNIT/ML VIAL SQ SCH ×3 (06:57→20:55)
[2016-06-18] MEDS: Furosemide 20 MG TABLET PO SCH ×3 (07:54→20:55)
[2016-06-18] MEDS: Diltiazem CD (24hr) 180 MG CAPSULE PO SCH (07:54)
[2016-06-18] MEDS: Ascorbic Acid 500 MG TABLET PO SCH (07:54)
[2016-06-18] MEDS: Metoprolol XL (24 HR) Succ 50 MG TAB.ER.24H PO SCH (07:55)
[2016-06-18] MEDS: *HR* Amiodarone 200 MG TABLET PO SCH (07:55)
[2016-06-18] MEDS: Gabapentin 300 MG CAPSULE PO SCH ×3 (07:55→20:55)
[2016-06-18] MEDS: Folic Acid 1 MG TABLET PO SCH (07:55)
[2016-06-18] MEDS: Aspirin Enteric Coated 81 MG Tablet PO SCH (07:55)
[2016-06-18] MEDS: predniSONE 20 MG TABLET PO SCH (07:55)
[2016-06-18] MEDS: Nystatin POWDER 30 GM BOTTLE TP SCH ×3 (07:56→20:56)
[2016-06-18] MEDS: Insulin LISPRO 300 UNITS/3 ML VIAL SQ SCH ×4 (07:56→20:55)
--- NOTE | 2016-06-18 08:11 | Internal Med Progress Note ---
Date of Encounter: 06/18/16 Time of Encounter: 08:06 - Assessment and plan (1) Acute hypercapnic respiratory failure Current Visit: Yes Status: Acute Assessment and plan: ABG done this morning at 4.25 showed PH 7.10, PCO2 94, PO2 77, O2 sat 89 Patient is on BIPAP IPAP/EPAP 16/8, FiO2 60, continue same 2mg Morphine given for resp distress Repeat ABG at pm to assess improvement Patient is alert, awake and oriented patient is DNR-CC (2) Acute exacerbation of chronic obstructive pulmonary disease (COPD) Current Visit: Yes Status: Acute Assessment and plan: Now in COPD exacerbation Received Solumedrol 125mg stat last night Now on prednisone 40mg po daily, continue same ABG with hypercapnea, continue BiPAP Repeat ABG later today Continue duonebs (3) CHF exacerbation Current Visit: Yes Status: Acute Assessment and plan: Secondary to fluid overload CXR done early today shows pulm vascular congestion Patient had received IVF for TEO ECHO 03/2015 F 65%, moderate LVDD, severe enlarged LA Continue lasix 40mg po bid Continue BIPAP Monitor I/O Daily weight Will not repeat ECHO Patient is DNR-CC Qualifiers: Congestive heart failure type: diastolic Qualified Code(s): I50.33 - Acute on chronic diastolic (congestive) heart failure (4) Sepsis Current Visit: Yes Status: Acute Assessment and plan: Patient met sepsis criteria on admission with tachycardia, leukocytosis and a UTI tachycardia has resolved, lactate is WNL, PLT is WNL, Leukocytosis has resolved BP has improved Urine culture with Klebsiella, resistant to ceftriaxone Patient has received 2 days of IV ceftriaxone Will switch to Levoflox 750mg IV daily Qualifiers: Sepsis type: sepsis due to unspecified organism Qualified Code(s): A41.9 - Sepsis, unspecified organism (5) TEO (acute kidney injury) Current Visit: Yes Status: Resolved Assessment and plan: Pre-renal, non oliguric Resolved with IVF Lasix has been restarted and patient is now in CHFE Monitor Chem closely (6) Urinary tract infection Current Visit: Yes Status: Acute Assessment and plan: As in sepsis Changed a/b to levoflox due to sensitivity showing resistance to ceftriaxone Qualifiers: Urinary tract infection type: site unspecified Hematuria presence: without hematuria Qualified Code(s): N39.0 - Urinary tract infection, site not specified (7) CAD (coronary artery disease) Current Visit: Yes Status: Chronic Assessment and plan: Continue home meds Qualifiers: Coronary Disease-Associated Artery/Lesion type: [place] artery [place] vs. transplanted heart: [place] heart Associated angina: without angina Qualified Code(s): I25.10 - Atherosclerotic heart disease of [place] coronary artery without angina pectoris (8) DMII (diabetes mellitus, type 2) Current Visit: Yes Status: Chronic Assessment and plan: Controlled A1C 5.8 Monitor FS ADA diet Qualifiers: Diabetes mellitus complication status: with unspecified complications Diabetes mellitus manager intermediate insulin use: without manager intermediate use Qualified Code( s): E11.8 - Type 2 diabetes mellitus with unspecified complications (9) HLD (hyperlipidemia) Current Visit: Yes Status: Chronic Assessment and plan: Continue home meds Qualifiers: Hyperlipidemia type: unspecified Qualified Code(s): E78.5 - Hyperlipidemia , unspecified (10) HTN (hypertension) Current Visit: Yes Status: Chronic Assessment and plan: Controlled Continue toprol 50 Continue to monitor Qualifiers: Hypertension type: essential hypertension Qualified Code(s): I10 - Essential (primary) hypertension (11) Hypothyroidism Current Visit: Yes Status: Chronic Assessment and plan: Continue synthroid Qualifiers: Hypothyroidism type: unspecified Qualified Code(s): E03.9 - Hypothyroidism , unspecified (12) A-fib Current Visit: Yes Status: Chronic Assessment and plan: HR is controlled Not on anticoagulation due to frequqnt falls, on ASA and Plavix, continue same Qualifiers: Atrial fibrillation type: chronic Qualified Code(s): I48.2 - Chronic atrial fibrillation - Subjective Interval history: 80 F, DNR-CC PMH of Afib on anticoagulation, DM, CHFpEF, CVA, DM, HLD, HTN, large ventral hernia patient is being managed for Sepsis secondary to Complicated UTI, TEO secondary to dehydration from nausea and vomiting She was given IVF which improved her TEO Her leukocytosis improved However, at 6p.m yesterday, she was said to be wheezing diffusely and examination confirmed same Her lasix had been held due to TEO and was restarted yesterday afternoon, she was given solumedrol and duonebs STAT CXR done overnight revealed CHF and ABG showed hypercapnea She is seen at bedside this morning, off her BIPAP, alert and oriented X3. She is still in mild respiratory distress, she denies new complains Urine culture revealed Klebsiella Oxytcae resistant to penicillin/cef, sensitive to fluoroquinolones Patient is DNR-CC - Constitutional Vitals: Temp Pulse Resp BP Pulse Ox 97.6 F 51 16 114/57 98 06/18/16 06:39 06/18/16 06:39 06/18/16 06:39 06/18/16 06:39 06/18/16 06:39 General appearance: Present: mild distress, A&O X 3, pleasant, answers questions appropriately - Head Head exam: Present: atraumatic, normocephalic - Eye Eye exam: Present: PERRL, conjuntiva pink, sclera anicteric Pupils: Present: PERRL - Neck Neck exam general surgery: Present: supple, trachea midline. Absent: lymphadenopathy - Respiratory Respiratory exam: Present: respiratory distress. Absent: rhonchi Additional comments: Diffuse expiratory wheezing bilaterally, no crackles - Cardiovascular Cardiovascular exam: Present: irregular rhythm, +S1, +S2. Absent: diastolic murmur, gallop, rubs, systolic murmur - GI/Abdominal GI/Abdominal exam: Present: hernia, normal bowel sounds, soft, no peritoneal signs. Absent: distended, tenderness - Extremities Exam Extremities exam: Present: warm, radial pulses palpable and symetrical. Absent : calf tenderness, cyanotic, pedal edema - Neurological Exam Neurological exam: Present: alert, CN II-XII intact, oriented X3, no focal deficits. Absent: pronater drift, facial droop, speech deficit - Skin Skin exam: Present: dry, intact Internal Medicine: Result - Labs CBC & Chem 7: 06/17/16 04:24 06/17/16 04:24 - ABG Interpretation ABG results: ABG ABG pH 7.10 pH Units (7.32-7.45) L* 06/18/16 04:25 ABG pCO2 94 mmHg (35-45) H* 06/18/16 04:25 ABG pO2 77 mmHg (85-104) L 06/18/16 04:25 ABG O2 Saturation 89 % (95-98) L 06/18/16 04:25 - Impressions Impressions Chest X-Ray 06/18/16 03:17 IMPRESSION: Findings consistent with congestive heart failure. D/ / David Dee MD / David Dee MD Interpreting Provider: David Dee MD Consult Discharge Plan - Plan Referrals: Shasta Du, SANDY [Primary Care Provider] - 06/21/16 4:00 pm
[2016-06-18] MEDS ORDERED: *HR* Morphine 2 MG/ML SYRINGE IVP ONE (08:12)
[2016-06-18] MEDS: Levofloxacin 750 MG/150 ML 750 MG/150 ML BAG IVPB SCH (08:26)
[2016-06-18 08:55] LABS: BUN/Creatinine Ratio 32 (6-26); Blood Urea Nitrogen 30 mg/dL (7-20); Carbon Dioxide 27 mEq/L (19-29); Chloride 95 mEq/L (98-109); Glucose 246 mg/dL (70-99); Osmolality,Calculated 292 (280-300); Potassium 5.2 mEq/L (3.5-4.5); Sodium 134 mEq/L (136-145); eGFR For African Americans > 60 (> 60); eGFR For Non-African Americans 58 (> 60)
[2016-06-18] MEDS: Budesonide/Formoterol 160/4.5 MDI IH SCH ×2 (10:35→22:00)
[2016-06-18 18:37] LABS: ABG Base Excess 2.6 mEq/L (-2.0 to 3.0); ABG Oxygen Saturation 93 % (95-98); ABG PCO2 69 mmHg (35-45); ABG PH 7.26 pH Units (7.32-7.45); ABG PO2 76 mmHg (85-104); ABG TCO2 33.1 mEq/L (20-26)
[2016-06-18 18:45] LABS: Blood Gas FiO2 44 %
[2016-06-18] MEDS: *HR* OxyCODONE/APAP 10/325 TABLET PO PRN (21:13)
[2016-06-19] MEDS: Ipratropium/Albuterol Neb 3 ML IH SCH ×4 (04:34→21:14)
[2016-06-19 05:04] LABS: VBG HCO3 36.7 mEq/L (21-27); VBG PH 7.28 pH Units (7.32-7.42)
[2016-06-19 05:21] LABS: BUN/Creatinine Ratio 43 (6-26); Blood Urea Nitrogen 32 mg/dL (7-20); Calcium 8.9 mg/dL (8.6-10.8); Carbon Dioxide 29 mEq/L (19-29); Chloride 92 mEq/L (98-109); Glucose 122 mg/dL (70-99); Osmolality,Calculated 280 (280-300); Sodium 131 mEq/L (136-145); eGFR For African Americans > 60 (> 60); eGFR For Non-African Americans > 60 (> 60)
[2016-06-19 05:33] LABS: Basophils % 0.1 %; Hematocrit 32.3 % (35.3-44.9); Hemoglobin 10.4 g/dL (11.5-15.4); Immature Granulocytes % 0.8 % (0-4); Lymphocytes # 0.6 K/mcL (0.6-4.6); Lymphocytes % 5.4 %; Mean Corpuscular HGB Conc 32.2 g/dL (31.6-35.5); Mean Corpuscular Hemoglobin 29.8 pg (28.0-33.3); Mean Corpuscular Volume 92.6 fL (83.0-100.0); Monocytes # 0.5 K/mcL (0.0-1.3); Monocytes % 4.1 %; Platelet Count 152 K/mcL (140-400); Red Blood Count 3.49 M/mcL (3.82-4.97); Red Cell Distribution Width 12.7 % (11.5-14.5); Segmented Neutrophils % 89.6 %
[2016-06-19] MEDS: *HR* Heparin 5,000 UNIT/ML VIAL SQ SCH ×3 (07:25→21:39)
[2016-06-19] MEDS: *HR* Amiodarone 200 MG TABLET PO SCH (08:39)
[2016-06-19] MEDS: Metoprolol XL (24 HR) Succ 50 MG TAB.ER.24H PO SCH (08:40)
[2016-06-19] MEDS: predniSONE 20 MG TABLET PO SCH (08:40)
[2016-06-19] MEDS: Aspirin Enteric Coated 81 MG Tablet PO SCH (08:40)
[2016-06-19] MEDS: Gabapentin 300 MG CAPSULE PO SCH ×3 (08:40→21:39)
[2016-06-19] MEDS: Diltiazem CD (24hr) 180 MG CAPSULE PO SCH (08:40)
[2016-06-19] MEDS: Insulin LISPRO 300 UNITS/3 ML VIAL SQ SCH ×4 (08:40→21:46)
[2016-06-19] MEDS: Furosemide 20 MG TABLET PO SCH ×2 (08:40→21:39)
[2016-06-19] MEDS: Folic Acid 1 MG TABLET PO SCH (08:40)
[2016-06-19] MEDS: Ascorbic Acid 500 MG TABLET PO SCH (08:40)
[2016-06-19] MEDS: Nystatin POWDER 30 GM BOTTLE TP SCH ×3 (08:41→21:46)
--- NOTE | 2016-06-19 09:37 | Internal Med Progress Note ---
Date of Encounter: 06/19/16 Time of Encounter: 09:34 - Assessment and plan (1) Acute hypercapnic respiratory failure Current Visit: Yes Status: Acute Assessment and plan: ABG 06/18 PH 7.10, PCO2 94, PO2 77, O2 sat 89 Patient was placed on BIPAP IPAP/EPAP 16/8, FiO2 60, VBG showed improvement Patient is alert, awake and oriented patient is DNR-CC (2) Acute exacerbation of chronic obstructive pulmonary disease (COPD) Current Visit: Yes Status: Acute Assessment and plan: Received Solumedrol 125mg stat last night Continue prednisone 40mg po daily to complete 5 days ABG with hypercapnea, resolved with BiPAP Continue duonebs (3) CHF exacerbation Current Visit: Yes Status: Acute Assessment and plan: Secondary to fluid overload CXR 06/18 shows pulm vascular congestion Patient had received IVF for TEO ECHO 03/2015 F 65%, moderate LVDD, severe enlarged LA Continue lasix 40mg po bid Continue BIPAP Monitor I/O Daily weight Will not repeat ECHO Patient is DNR-CC Qualifiers: Congestive heart failure type: diastolic Qualified Code(s): I50.33 - Acute on chronic diastolic (congestive) heart failure (4) Sepsis Current Visit: Yes Status: Acute Assessment and plan: Patient met sepsis criteria on admission with tachycardia, leukocytosis and a UTI tachycardia has resolved, lactate is WNL, PLT is WNL, Leukocytosis had resolved , but recurred today possibly due to steroids BP has improved Urine culture with Klebsiella, resistant to ceftriaxone Patient has received 2 days of IV ceftriaxone Continue Levoflox 750mg IV daily-DAY 2 Qualifiers: Sepsis type: sepsis due to unspecified organism Qualified Code(s): A41.9 - Sepsis, unspecified organism (5) TEO (acute kidney injury) Current Visit: Yes Status: Resolved Assessment and plan: Pre-renal, non oliguric Resolved with IVF Lasix has been restarted and patient is now in CHFE Monitor Chem closely (6) Urinary tract infection Current Visit: Yes Status: Acute Assessment and plan: As in sepsis Changed a/b to levoflox due to sensitivity showing resistance to ceftriaxone Qualifiers: Urinary tract infection type: site unspecified Hematuria presence: without hematuria Qualified Code(s): N39.0 - Urinary tract infection, site not specified (7) CAD (coronary artery disease) Current Visit: Yes Status: Chronic Assessment and plan: Continue home meds Qualifiers: Coronary Disease-Associated Artery/Lesion type: [place] artery [place] vs. transplanted heart: [place] heart Associated angina: without angina Qualified Code(s): I25.10 - Atherosclerotic heart disease of [place] coronary artery without angina pectoris (8) DMII (diabetes mellitus, type 2) Current Visit: Yes Status: Chronic Assessment and plan: Controlled A1C 5.8 Monitor FS ADA diet Qualifiers: Diabetes mellitus complication status: with unspecified complications Diabetes mellitus detention insulin use: without detention use Qualified Code( s): E11.8 - Type 2 diabetes mellitus with unspecified complications (9) HLD (hyperlipidemia) Current Visit: Yes Status: Chronic Assessment and plan: Continue home meds Qualifiers: Hyperlipidemia type: unspecified Qualified Code(s): E78.5 - Hyperlipidemia , unspecified (10) HTN (hypertension) Current Visit: Yes Status: Chronic Assessment and plan: Controlled Continue toprol 50 Continue to monitor Qualifiers: Hypertension type: essential hypertension Qualified Code(s): I10 - Essential (primary) hypertension (11) Hypothyroidism Current Visit: Yes Status: Chronic Assessment and plan: Continue synthroid Qualifiers: Hypothyroidism type: unspecified Qualified Code(s): E03.9 - Hypothyroidism , unspecified (12) A-fib Current Visit: Yes Status: Chronic Assessment and plan: HR is controlled Not on anticoagulation due to frequent falls, on ASA and Plavix, continue same Qualifiers: Atrial fibrillation type: chronic Qualified Code(s): I48.2 - Chronic atrial fibrillation (13) Hyperkalemia Current Visit: Yes Status: Acute Assessment and plan: K 5.0 PO kayexalate given Rpt Chem a.m - Subjective Interval history: 80 F, DNR-CC PMH of Afib on anticoagulation, DM, CHFpEF, CVA, DM, HLD, HTN, large ventral hernia patient is being managed for Sepsis secondary to Complicated UTI, TEO secondary to dehydration from nausea and vomiting She was given IVF which improved her TEO Patient's stay complicated by COPDE, acute hypercapneic respiratory failure requiring BiPAP and mild CHFE from IVF TEO has resolved Leukocytosis today possibly from steroid use Urine culture revealed Klebsiella Oxytcae resistant to penicillin/cef, sensitive to fluoroquinolones She is seen at bedside this morning, off her BIPAP, alert and oriented X3. Not in any form of distress She denies new complains Day 2 of Levofloxacin, She had received 2 days of ceftriaxone prior to urine culture sensitivity Patient is DNR-CC - Constitutional Vitals: Temp Pulse Resp BP Pulse Ox 97.2 F L 55 14 112/65 100 06/19/16 07:20 06/19/16 07:20 06/19/16 07:20 06/19/16 07:20 06/19/16 07:20 General appearance: Present: A&O X 3, pleasant, no acute distress, answers questions appropriately - Head Head exam: Present: atraumatic, normocephalic - Eye Eye exam: Present: PERRL, conjuntiva pink, sclera anicteric Pupils: Present: PERRL - Neck Neck exam general surgery: Present: supple, trachea midline. Absent: lymphadenopathy - Respiratory Respiratory exam: Present: CTAB. Absent: accessory muscle use, rales, rhonchi, wheezes - Cardiovascular Cardiovascular exam: Present: irregular rhythm, +S1, +S2. Absent: diastolic murmur, gallop, rubs, systolic murmur - GI/Abdominal GI/Abdominal exam: Present: hernia, normal bowel sounds, soft, no peritoneal signs. Absent: distended, tenderness - Extremities Exam Extremities exam: Present: warm, radial pulses palpable and symetrical. Absent : calf tenderness, cyanotic, pedal edema - Neurological Exam Neurological exam: Present: alert, CN II-XII intact, oriented X3, no focal deficits. Absent: pronater drift, facial droop, speech deficit - Skin Skin exam: Present: dry, intact Internal Medicine: Result - Labs CBC & Chem 7: 06/19/16 04:55 06/19/16 04:55 Labs: Short CBC 06/19/16 Range/Units 04:55 WBC 11.2 H D (4.3-11.1) K/mcL Hgb 10.4 L (11.5-15.4) g/dL Hct 32.3 L (35.3-44.9) % Plt Count 152 (140-400) K/mcL Neutrophils # 10.0 H (1.6-8.9) K/mcL BMP 06/19/16 04:55 Sodium 131 L Potassium 5.0 H Chloride 92 L Carbon Dioxide 29 BUN 32 H Creatinine 0.74 Glucose 122 H Calcium 8.9 - ABG Interpretation ABG results: ABG ABG pH 7.26 pH Units (7.32-7.45) L 06/18/16 18:00 ABG pCO2 69 mmHg (35-45) H 06/18/16 18:00 ABG pO2 76 mmHg (85-104) L 06/18/16 18:00 ABG O2 Saturation 93 % (95-98) L 06/18/16 18:00 Consult Discharge Plan - Plan Referrals: Shasta Du, SANDY [Primary Care Provider] - 06/21/16 4:00 pm
[2016-06-19] MEDS: Budesonide/Formoterol 160/4.5 MDI IH SCH ×2 (10:16→21:14)
--- NOTE | 2016-06-19 20:09 | Electrocardiograph Report ---
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
[2016-06-20 05:30] LABS: Eosinophils % 0.1 %; Hematocrit 29.4 % (35.3-44.9); Hemoglobin 9.5 g/dL (11.5-15.4); Immature Granulocytes % 0.6 % (0-4); Lymphocytes # 0.5 K/mcL (0.6-4.6); Lymphocytes % 6.6 %; Mean Corpuscular HGB Conc 32.3 g/dL (31.6-35.5); Mean Corpuscular Hemoglobin 30.4 pg (28.0-33.3); Mean Corpuscular Volume 94.2 fL (83.0-100.0); Mean Platelet Volume 12.6 fL (9.4-12.4); Monocytes # 0.6 K/mcL (0.0-1.3); Monocytes % 7.9 %; Neutrophils # 5.9 K/mcL (1.6-8.9); Platelet Count 144 K/mcL (140-400); Red Blood Count 3.12 M/mcL (3.82-4.97); Red Cell Distribution Width 12.8 % (11.5-14.5); Segmented Neutrophils % 84.8 %
[2016-06-20] MEDS: Ipratropium/Albuterol Neb 3 ML IH SCH ×4 (05:32→21:26)
[2016-06-20 05:41] LABS: BUN/Creatinine Ratio 38 (6-26); Blood Urea Nitrogen 23 mg/dL (7-20); Calcium 8.4 mg/dL (8.6-10.8); Chloride 93 mEq/L (98-109); Glucose 101 mg/dL (70-99); Osmolality,Calculated 298 (280-300); eGFR For African Americans > 60 (> 60); eGFR For Non-African Americans > 60 (> 60)
[2016-06-20 05:42] LABS: Potassium 3.2 mEq/L (3.5-4.5); Sodium 142 mEq/L (136-145)
[2016-06-20 05:45] LABS: Carbon Dioxide 41 mEq/L (19-29)
[2016-06-20] MEDS: *HR* Heparin 5,000 UNIT/ML VIAL SQ SCH ×3 (07:55→23:14)
[2016-06-20] MEDS: Insulin LISPRO 300 UNITS/3 ML VIAL SQ SCH ×4 (07:57→23:15)
--- NOTE | 2016-06-20 08:09 | Internal Med Progress Note ---
Date of Encounter: 06/20/16 Time of Encounter: 08:08 - Assessment and plan (1) Acute hypercapnic respiratory failure Current Visit: Yes Status: Acute Assessment and plan: ABG 06/18 PH 7.10, PCO2 94, PO2 77, O2 sat 89 Patient was placed on BIPAP IPAP/EPAP 16/8, FiO2 60, VBG showed improvement Patient is alert, awake and oriented Patient is a chronic retainer and her baseline CO2 is not known Will continue BiPAP today and repaet VBG and Chem a.m patient is DNR-CC (2) Acute exacerbation of chronic obstructive pulmonary disease (COPD) Current Visit: Yes Status: Acute Assessment and plan: Continue prednisone 40mg po daily to complete 5 days ABG with hypercapnea, resolved with BiPAP Continue duonebs (3) CHF exacerbation Current Visit: Yes Status: Acute Assessment and plan: Secondary to fluid overload CXR 06/18 shows pulm vascular congestion Patient had received IVF for TEO ECHO 03/2015 F 65%, moderate LVDD, severe enlarged LA Continue lasix 40mg po bid Continue BIPAP Monitor I/O Daily weight Will not repeat ECHO Patient is DNR-CC Qualifiers: Congestive heart failure type: diastolic Qualified Code(s): I50.33 - Acute on chronic diastolic (congestive) heart failure (4) Sepsis Current Visit: Yes Status: Acute Assessment and plan: Patient met sepsis criteria on admission with tachycardia, leukocytosis and a UTI tachycardia has resolved, lactate is WNL, PLT is WNL, Leukocytosis had resolved , but recurred 06/19 possibly due to steroids Leukocytosis again has resolved today BP has improved Urine culture with Klebsiella, resistant to ceftriaxone Patient has received 2 days of IV ceftriaxone Continue Levoflox 750mg IV daily-DAY 3 Qualifiers: Sepsis type: sepsis due to unspecified organism Qualified Code(s): A41.9 - Sepsis, unspecified organism (5) TEO (acute kidney injury) Current Visit: Yes Status: Resolved Assessment and plan: Pre-renal, non oliguric Resolved with IVF Lasix has been restarted and patient is now in CHFE Monitor Chem closely (6) Urinary tract infection Current Visit: Yes Status: Acute Assessment and plan: As in sepsis Changed a/b to levoflox due to sensitivity showing resistance to ceftriaxone Qualifiers: Urinary tract infection type: site unspecified Hematuria presence: without hematuria Qualified Code(s): N39.0 - Urinary tract infection, site not specified (7) CAD (coronary artery disease) Current Visit: Yes Status: Chronic Assessment and plan: Continue home meds Qualifiers: Coronary Disease-Associated Artery/Lesion type: [place] artery [place] vs. 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 insulin use: without termite 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 helper use Qualified Code( s): E11.8 - Type 2 diabetes mellitus with unspecified complications (9) HLD (hyperlipidemia) Current Visit: Yes Status: Chronic Assessment and plan: Continue home meds Qualifiers: Hyperlipidemia type: unspecified Qualified Code(s): E78.5 - Hyperlipidemia , unspecified (10) HTN (hypertension) Current Visit: Yes Status: Chronic Assessment and plan: Controlled Continue toprol 50 Continue to monitor Qualifiers: Hypertension type: essential hypertension Qualified Code(s): I10 - Essential (primary) hypertension (11) Hypothyroidism Current Visit: Yes Status: Chronic Assessment and plan: Continue synthroid Qualifiers: Hypothyroidism type: unspecified Qualified Code(s): E03.9 - Hypothyroidism , unspecified (12) A-fib Current Visit: Yes Status: Chronic Qualifiers: Atrial fibrillation type: chronic Qualified Code(s): I48.2 - Chronic atrial fibrillation (13) Hyperkalemia Current Visit: Yes Status: Acute - Subjective Interval history: 80 F, DNR-CC PMH of Afib on anticoagulation, DM, CHFpEF, CVA, DM, HLD, HTN, large ventral hernia patient is being managed for Sepsis secondary to Complicated UTI, TEO secondary to dehydration from nausea and vomiting She was given IVF which improved her TEO Patient's stay complicated by COPDE, acute hypercapneic respiratory failure requiring BiPAP and mild CHFE from IVF TEO has resolved Leukocytosis resolved Urine culture revealed Klebsiella Oxytcae resistant to penicillin/cef, sensitive to fluoroquinolones Day 3 of Levaquin, she had received 2 days of Ceftriaxone prior to culture reports She is also chronic respiratory failure on home O2, chronic CO2 retention with metabolic alkalosis A.M labs today shows worsening metabolic alkalosis, patient reportedly did not wear BiPAP overnight, She is seen at bedside eating breakfast, in no form of distress She denies new complains - Constitutional Vitals: Temp Pulse Resp BP Pulse Ox 97.9 F 94 18 110/66 100 06/20/16 06:59 06/20/16 06:59 06/20/16 06:59 06/20/16 06:59 06/20/16 06:59 General appearance: Present: mild distress, A&O X 3, pleasant, no acute distress , answers questions appropriately - Head Head exam: Present: atraumatic, normocephalic - Eye Eye exam: Present: PERRL, conjuntiva pink, sclera anicteric Pupils: Present: PERRL - Neck Neck exam general surgery: Present: supple, trachea midline. Absent: lymphadenopathy - Respiratory Respiratory exam: Present: CTAB. Absent: accessory muscle use, rales, rhonchi, wheezes - Cardiovascular Cardiovascular exam: Present: irregular rhythm, +S1, +S2. Absent: diastolic murmur, gallop, rubs, systolic murmur - GI/Abdominal GI/Abdominal exam: Present: hernia, normal bowel sounds, soft, no peritoneal signs. Absent: distended, tenderness - Extremities Exam Extremities exam: Present: warm, radial pulses palpable and symetrical. Absent : calf tenderness, cyanotic, pedal edema - Neurological Exam Neurological exam: Present: CN II-XII intact, oriented X3, no focal deficits. Absent: pronater drift, facial droop, speech deficit Internal Medicine: Result - Labs CBC & Chem 7: 06/20/16 04:43 06/20/16 04:43 Labs: Short CBC 06/20/16 Range/Units 04:43 WBC 7.0 (4.3-11.1) K/mcL Hgb 9.5 L (11.5-15.4) g/dL Hct 29.4 L (35.3-44.9) % Plt Count 144 (140-400) K/mcL Neutrophils # 5.9 (1.6-8.9) K/mcL BMP 06/20/16 04:43 Sodium 142 D Potassium 3.2 L D Chloride 93 L Carbon Dioxide 41 H* BUN 23 H Creatinine 0.60 Glucose 101 H Calcium 8.4 L - ABG Interpretation ABG results: ABG ABG pH 7.26 pH Units (7.32-7.45) L 06/18/16 18:00 ABG pCO2 69 mmHg (35-45) H 06/18/16 18:00 ABG pO2 76 mmHg (85-104) L 06/18/16 18:00 ABG O2 Saturation 93 % (95-98) L 06/18/16 18:00 Consult Discharge Plan - Plan Referrals: Shasta Du, SANDY [Primary Care Provider] - 06/21/16 4:00 pm
[2016-06-20] MEDS: Diltiazem CD (24hr) 180 MG CAPSULE PO SCH (09:14)
[2016-06-20] MEDS: predniSONE 20 MG TABLET PO SCH (09:14)
[2016-06-20] MEDS: Folic Acid 1 MG TABLET PO SCH (09:15)
[2016-06-20] MEDS: Metoprolol XL (24 HR) Succ 50 MG TAB.ER.24H PO SCH (09:15)
[2016-06-20] MEDS: Ascorbic Acid 500 MG TABLET PO SCH (09:15)
[2016-06-20] MEDS: Furosemide 20 MG TABLET PO SCH ×2 (09:16→23:15)
[2016-06-20] MEDS: Aspirin Enteric Coated 81 MG Tablet PO SCH (09:16)
[2016-06-20] MEDS: Levofloxacin 750 MG/150 ML 750 MG/150 ML BAG IVPB SCH (09:16)
[2016-06-20] MEDS: Gabapentin 300 MG CAPSULE PO SCH ×3 (09:17→23:15)
[2016-06-20] MEDS: *HR* Amiodarone 200 MG TABLET PO SCH (09:17)
[2016-06-20] MEDS: Nystatin POWDER 30 GM BOTTLE TP SCH ×3 (09:42→23:15)
[2016-06-20] MEDS: Budesonide/Formoterol 160/4.5 MDI IH SCH ×2 (11:37→21:26)
[2016-06-20] MEDS: 0.9 % Sodium Chloride 1,000 ML IVC SCH (14:22)
[2016-06-21] MEDS: Ipratropium/Albuterol Neb 3 ML IH SCH ×2 (04:46→10:44)
[2016-06-21] MEDS: *HR* Heparin 5,000 UNIT/ML VIAL SQ SCH (06:55)
[2016-06-21 08:14] LABS: Eosinophils % 0.2 %; Hematocrit 30.8 % (35.3-44.9); Hemoglobin 9.9 g/dL (11.5-15.4); Immature Granulocytes % 1.6 % (0-4); Lymphocytes # 0.7 K/mcL (0.6-4.6); Lymphocytes % 13.7 %; Mean Corpuscular HGB Conc 32.1 g/dL (31.6-35.5); Mean Corpuscular Hemoglobin 30.2 pg (28.0-33.3); Mean Corpuscular Volume 93.9 fL (83.0-100.0); Mean Platelet Volume 11.3 fL (9.4-12.4); Monocytes # 0.5 K/mcL (0.0-1.3); Monocytes % 10.4 %; Neutrophils # 3.8 K/mcL (1.6-8.9); Platelet Count 149 K/mcL (140-400); Red Blood Count 3.28 M/mcL (3.82-4.97); Red Cell Distribution Width 12.8 % (11.5-14.5); Segmented Neutrophils % 74.1 %
[2016-06-21 08:24] LABS: BUN/Creatinine Ratio 29 (6-26); Blood Urea Nitrogen 18 mg/dL (7-20); Calcium 8.9 mg/dL (8.6-10.8); Chloride 92 mEq/L (98-109); Glucose 103 mg/dL (70-99); Magnesium 1.7 mg/dL (1.6-2.6); Osmolality,Calculated 298 (280-300); Phosphorous 2.1 mg/dL (2.3-4.7); Potassium 3.4 mEq/L (3.5-4.5); Sodium 143 mEq/L (136-145); eGFR For African Americans > 60 (> 60); eGFR For Non-African Americans > 60 (> 60)
[2016-06-21 08:28] LABS: Carbon Dioxide 42 mEq/L (19-29)
[2016-06-21] MEDS: Folic Acid 1 MG TABLET PO SCH (09:43)
[2016-06-21] MEDS: Gabapentin 300 MG CAPSULE PO SCH (09:44)
[2016-06-21] MEDS: Ascorbic Acid 500 MG TABLET PO SCH (09:44)
[2016-06-21] MEDS: predniSONE 20 MG TABLET PO SCH (09:44)
[2016-06-21] MEDS: Diltiazem CD (24hr) 180 MG CAPSULE PO SCH (09:44)
[2016-06-21] MEDS: *HR* Amiodarone 200 MG TABLET PO SCH (09:44)
[2016-06-21] MEDS: Metoprolol XL (24 HR) Succ 50 MG TAB.ER.24H PO SCH (09:44)
[2016-06-21] MEDS: Furosemide 20 MG TABLET PO SCH (09:44)
[2016-06-21] MEDS: Aspirin Enteric Coated 81 MG Tablet PO SCH (09:44)
[2016-06-21] MEDS: Insulin LISPRO 300 UNITS/3 ML VIAL SQ SCH ×2 (09:49→12:05)
[2016-06-21] MEDS: Nystatin POWDER 30 GM BOTTLE TP SCH (09:49)
--- NOTE | 2016-06-21 09:56 | Discharge Summary ---
Date of Encounter: 06/21/16 Time of Encounter: 09:15 - Discharge Diagnosis (1) Urinary tract infection Priority: Primary Status: Acute Qualifiers: Urinary tract infection type: site unspecified Hematuria presence: without hematuria Qualified Code(s): N39.0 - Urinary tract infection, site not specified (2) Sepsis Priority: Primary Status: Resolved Qualifiers: Sepsis type: sepsis due to unspecified organism Qualified Code(s): A41.9 - Sepsis, unspecified organism (3) Acute on chronic respiratory failure with hypoxemia Priority: Secondary Status: Acute (4) Acute exacerbation of chronic obstructive pulmonary disease (COPD) Priority: Secondary Status: Resolved (5) Diabetes mellitus Priority: Secondary Status: Chronic Qualifiers: Diabetes mellitus type: type 2 Diabetes mellitus complication status: with hyperglycemia 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: without intermodal owner operator truck driver use Qualified Code(s): E11.65 - Type 2 diabetes mellitus with hyperglycemia (6) TEO (acute kidney injury) Priority: Secondary Status: Resolved (7) CHF exacerbation Priority: Secondary Status: Acute Qualifiers: Congestive heart failure type: diastolic Qualified Code(s): I50.33 - Acute on chronic diastolic (congestive) heart failure (8) DVT prophylaxis Priority: Secondary Status: Acute - Discharge Medications Prescriptions: Levofloxacin [Levaquin] 750 mg PO DAILY #6 tablet PredniSONE 40 mg PO DAILY #3 tablet Home Medications: Ascorbate Calcium [Vitamin C] 500 mg PO DAILY 04/15/15 [History] Aspirin [Adult Low Dose Aspirin EC] 81 mg PO DAILY 04/15/15 [History] Atorvastatin Calcium [Lipitor] 40 mg PO DAILY 04/15/15 [History] Bisacodyl [Dulcolax] 5 mg PO DAILY PRN 04/15/15 [History] Budesonide/Formoterol 160/4.5 [Symbicort 160/4.5] 2 puff IH BID 04/15/15 [ History] Clopidogrel [Plavix] 75 mg PO DAILY 04/15/15 [History] Ferrous Sulfate 325 mg PO DAILY 04/15/15 [History] Folic Acid 1 mg PO DAILY #0 04/15/15 [History] GlipiZIDE [Glipizide Xl] 5 mg PO DAILY 04/15/15 [History] Lansoprazole [Prevacid] 30 mg PO DAILY 04/15/15 [History] Levothyroxine [Synthroid] 75 mcg PO DAILY 04/15/15 [History] Meclizine [Antivert] 12.5 mg PO QID PRN 04/15/15 [History] Metformin HCl [Fortamet] 500 mg PO BIDWM 04/15/15 [History] Metoclopramide HCl 5 mg PO QID PRN 04/15/15 [History] Oxycodone HCl/Acetaminophen [Percocet 10-325 mg Tablet] 1 tab PO Q6H PRN [History] Sertraline HCl [Zoloft] 100 mg PO DAILY 04/15/15 [History] Gabapentin [Neurontin] 300 mg PO TID 11/26/15 [History] Lisinopril [Zestril] 20 mg PO DAILY 11/26/15 [History] Nystatin POWDER [Nystop] 1 appl TP TID #1 bottle 01/04/16 [Rx] Amiodarone [Cordarone] 200 mg PO DAILY #30 tablet 02/25/16 [Rx] Diltiazem CD (24hr) [Cardizem CD] 360 mg PO DAILY #30 cap.er.24h 02/25/16 [Rx] Metoprolol XL (24 HR) Succ [Toprol Xl] 75 mg PO DAILY #30 tab.er.24h 02/25/16 [ Rx] Estradiol [Estrace] 1 appl VG AD 06/16/16 [History] Nystatin Cream [Mycostatin Cream] 1 appl TP BID 06/16/16 [History] Nystatin POWDER [Nystop] 1 appl TP BID 06/16/16 [History] Oxygen 4 l .ROUTE AD 06/16/16 [History] Furosemide [Lasix] 40 mg PO BID #0 06/21/16 [Rx] Levofloxacin [Levaquin] 750 mg PO DAILY #6 tablet 06/21/16 [Rx] PredniSONE 40 mg PO DAILY #3 tablet 06/21/16 [Rx] Allergies/Adverse Reactions: Allergies Sulfa (Sulfonamide Antibiotics) Allergy (Severe, Verified 05/03/16 14:43) Swelling of Lip/Tongue/Throat Date of admission: 06/18/16 08:17 Primary care physician: Shasta Du CNP Discharging clinician: Sallie Bobby Anticipated date of discharge: 06/21/16 - Patient Status Disposition: Home, Self-Care Condition: Good Functional capacity at discharge: uses cane/walker Overall status at discharge: patient is back to baseline - Discharge Instructions Follow Up With: Shasta Du CNP [Primary Care Provider] - 06/21/16 4:00 pm Additional Instructions: Please follow up with your primary care physician within 5 days after discharge from the hospital. Please continue prescribed oral antibiotics for 6 more days for urinary tract infection. Please continue steroids for 3 more days. Please continue to use home oxygen therapy at all times. Your home dose of Lasix has been changed to twice a day, please take this medication as prescribed. Please resume all your other home medications as prescribed by your primary care physician. - Diet and Activity Activity: resume usual activities as tolerated, wear oxygen at all times Diet: diabetic diet, low salt diet Hospital course: Ms. Mascorro is a 80 year old female with past medical history of atrial fibrillation, CHF, COPD on long-term oxygen therapy, diabetes, hyperlipidemia, hypertension who was admitted for management of symptomatic urinary tract infection, TEO, acute respiratory failure secondary to COPD and CHF exacerbation. Patient was started on empiric IV antibiotics, systemic steroids , and her home dose of Lasix was continued. It was reported that patient was taking Lasix on an as-needed basis at home which was changed to a scheduled dose. Patient has history of chronic hypercapnia which persisted during her hospitalization. Patient was also evaluated by physical therapy and no further therapy interventions were recommended. At this time patient is hemodynamically stable, saturating well on nasal cannula, and responding well to antibiotic therapy. Her antibiotic therapy has been changed as per her urine culture report. She will be discharged to home with follow-up with her primary care physician and oral antibiotics. Patient and family demonstrated understanding of her diagnosis and agree with the discharge care and plan. - Time Spent with Patient Total time spent providing and/or coordinating discharge services: Less than 30 minutes - Constitutional Vitals: Temp Pulse Resp BP Pulse Ox 97.6 F 90 18 121/57 95 06/21/16 05:00 06/21/16 05:00 06/21/16 05:00 06/21/16 05:00 06/21/16 05:00 General appearance: Present: A&O X 3, pleasant, no acute distress, answers questions appropriately - Head Head exam: Present: atraumatic, normocephalic - Eye Eye exam: Present: normal appearance, conjuntiva pink, sclera anicteric - Respiratory Respiratory exam: Present: CTAB. Absent: accessory muscle use, rales, rhonchi, wheezes - Cardiovascular Cardiovascular exam: Present: RRR, +S1, +S2. Absent: diastolic murmur, gallop, rubs, systolic murmur - GI/Abdominal GI/Abdominal exam: Present: normal bowel sounds, soft, no peritoneal signs. Absent: distended, tenderness - Extremities Exam Extremities exam: Present: warm, radial pulses palpable and symetrical. Absent : calf tenderness, cyanotic, pedal edema - Neurological Exam Neurological exam: Present: alert, oriented X3 - Psychiatric Psychiatric exam: Present: normal affect, normal mood
[2016-06-21] MEDS: Budesonide/Formoterol 160/4.5 MDI IH SCH (10:44)
[2016-06-21 12:05] VITALS: BP 136/54
[2016-06-22] MEDS ORDERED: levoFLOXacin 750 MG TABLET PO SCH (09:00)
== END 2016-06-21 12:30 | disposition home or self-care (01) | DRG 720 ==
LOC: EMEROO 23:33 → 2ANU 23:33 → SUATTDRO 06-18 08:17
PROVIDERS: ADMIT Internal Medicine; ATTEND Internal Medicine

== ENCOUNTER 2016-10-03 19:55 | Inpatient (IN) ==
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
[2016-10-03 21:22] LABS: Basophils % 0.2 %; Eosinophils # 0.1 K/mcL (0.0-0.6); Eosinophils % 0.6 %; Hematocrit 42.7 % (35.3-44.9); Hemoglobin 13.7 g/dL (11.5-15.4); Immature Granulocytes % 0.5 % (0-4); Lymphocytes # 0.6 K/mcL (0.6-4.6); Lymphocytes % 5.7 %; Mean Corpuscular HGB Conc 32.1 g/dL (31.6-35.5); Mean Corpuscular Hemoglobin 28.8 pg (28.0-33.3); Mean Corpuscular Volume 89.9 fL (83.0-100.0); Monocytes # 0.3 K/mcL (0.0-1.3); Monocytes % 2.5 %; Neutrophils # 10.1 K/mcL (1.6-8.9); Platelet Count 168 K/mcL (140-400); Red Blood Count 4.75 M/mcL (3.82-4.97); Red Cell Distribution Width 13.4 % (11.5-14.5); Segmented Neutrophils % 90.5 %
[2016-10-03 21:29] LABS: BUN/Creatinine Ratio 26 (6-26); Blood Urea Nitrogen 20 mg/dL (7-20); Calcium 9.1 mg/dL (8.6-10.8); Carbon Dioxide 25 mEq/L (19-29); Chloride 104 mEq/L (98-109); Glucose 175 mg/dL (70-99); Osmolality,Calculated 295 (280-300); Potassium 4.4 mEq/L (3.5-4.5); Sodium 139 mEq/L (136-145); eGFR For African Americans > 60 (> 60); eGFR For Non-African Americans > 60 (> 60)
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
[2016-10-03] MEDS ORDERED: Heparin 25,000 UNIT/500 ML D5W 25,000 UNIT/500 ML MLS IVC SCH (23:15)
[2016-10-03 23:55] LABS: Hematocrit 41.7 % (35.3-44.9); Hemoglobin 13.1 g/dL (11.5-15.4); Mean Corpuscular HGB Conc 31.4 g/dL (31.6-35.5); Mean Corpuscular Hemoglobin 28.5 pg (28.0-33.3); Mean Corpuscular Volume 90.7 fL (83.0-100.0); Mean Platelet Volume 11.1 fL (9.4-12.4); Platelet Count 174 K/mcL (140-400); Red Cell Distribution Width 13.3 % (11.5-14.5)
[2016-10-04] MEDS ORDERED: *HR* Heparin 5,000 UNIT/ML VIAL IVP PRN ×2 (00:03)
[2016-10-04] MEDS ORDERED: *HR* Heparin 5,000 UNIT/ML VIAL IVP ONE (00:03)
[2016-10-04 01:27] LABS: Hematocrit 39.7 % (35.3-44.9); Hemoglobin 12.3 g/dL (11.5-15.4); Immature Platelets 5.4 % (1.1-6.1); Mean Corpuscular Hemoglobin 28.3 pg (28.0-33.3); Mean Corpuscular Volume 91.5 fL (83.0-100.0); Mean Platelet Volume 11.1 fL (9.4-12.4); Red Blood Count 4.34 M/mcL (3.82-4.97); Red Cell Distribution Width 13.2 % (11.5-14.5)
[2016-10-04 01:30] LABS: INR 1.1; Prothrombin Time 12.2 Seconds (9.4-12.1)
[2016-10-04 01:33] LABS: Activated Partial Thrombo Time 25.4 Seconds (26.0-36.0)
[2016-10-04] MEDS: Heparin 25,000 UNIT/500 ML D5W 25,000 UNIT/500 ML MLS IVC SCH (01:44)
[2016-10-04 06:52] LABS: Basophils % 0.2 %; Hemoglobin 12.8 g/dL (11.5-15.4); Immature Granulocytes % 0.9 % (0-4); Lymphocytes # 0.6 K/mcL (0.6-4.6); Lymphocytes % 11.3 %; Mean Corpuscular HGB Conc 30.5 g/dL (31.6-35.5); Mean Corpuscular Hemoglobin 27.8 pg (28.0-33.3); Mean Corpuscular Volume 91.1 fL (83.0-100.0); Mean Platelet Volume 11.1 fL (9.4-12.4); Monocytes # 0.2 K/mcL (0.0-1.3); Monocytes % 3.4 %; Neutrophils # 4.8 K/mcL (1.6-8.9); Platelet Count 178 K/mcL (140-400); Red Blood Count 4.61 M/mcL (3.82-4.97); Red Cell Distribution Width 13.2 % (11.5-14.5); Segmented Neutrophils % 84.2 %
[2016-10-04 07:06] LABS: BUN/Creatinine Ratio 31 (6-26); Blood Urea Nitrogen 25 mg/dL (7-20); Calcium 9.3 mg/dL (8.6-10.8); Carbon Dioxide 27 mEq/L (19-29); Chloride 103 mEq/L (98-109); Creatine Kinase 33 Units/L (29-168); Glucose 212 mg/dL (70-99); Magnesium 1.9 mg/dL (1.6-2.6); Osmolality,Calculated 297 (280-300); Potassium 4.7 mEq/L (3.5-4.5); Sodium 138 mEq/L (136-145); eGFR For African Americans > 60 (> 60); eGFR For Non-African Americans > 60 (> 60)
[2016-10-04] MEDS ORDERED: *HR* Dextrose 50 % in Water (Syg) 50 ML SYRINGE IVP PRN (08:12)
[2016-10-04] MEDS ORDERED: D5% in Water 1,000 ML IVC PRN (08:12)
[2016-10-04] MEDS ORDERED: Dextrose Gel 15 GM PO PRN ×2 (08:12)
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
[2016-10-04] MEDS ORDERED: *HR* Amiodarone 200 MG TABLET PO SCH (09:00)
[2016-10-04] MEDS ORDERED: Metoprolol XL (24 HR) Succ 50 MG TAB.ER.24H PO SCH (09:00)
[2016-10-04] MEDS ORDERED: Diltiazem CD (24hr) 180 MG CAPSULE PO SCH (09:00)
[2016-10-04] MEDS: Aspirin Enteric Coated 81 MG Tablet PO SCH (10:26)
[2016-10-04] MEDS: Folic Acid 1 MG TABLET PO SCH (10:26)
[2016-10-04] MEDS: Lisinopril 20 MG TABLET PO SCH (10:26)
[2016-10-04] MEDS: Gabapentin 300 MG CAPSULE PO SCH ×3 (10:26→20:35)
[2016-10-04] MEDS: Ascorbic Acid 500 MG TABLET PO SCH (10:26)
[2016-10-04] MEDS: Furosemide 40 MG TABLET PO SCH ×2 (10:29→17:28)
[2016-10-04] MEDS: Budesonide/Formoterol 160/4.5 MDI IH SCH ×2 (11:22→20:28)
--- NOTE | 2016-10-04 12:39 | Electrocardiograph Report ---
[place] [id number] Test Date: 2016-10-03 Pat Name: Sabrina Mascorro Department: 102 Room: [facility] Gender: F Plant Senior Manager: : [id number] Requested By: Jean Singleton Order Number: [id number] Reading MD: Steff Zhang Measurements Intervals [place] Rate: 82 P: 90 AL: 122 QRS: 56 QRSD: 81 T: 83 QT: 374 QTc: 412 Interpretive Statements SINUS RHYTHM NONSPECIFIC T-WAVE ABNORMALITY Electronically Signed On 10-04-2016 12:37:52 EDT by Steff Zhang
[2016-10-04] MEDS: Insulin LISPRO 300 UNITS/3 ML VIAL SQ SCH ×3 (12:51→20:39)
--- NOTE | 2016-10-04 17:26 | Internal Med Progress Note ---
Date of Encounter: 10/04/16 Time of Encounter: 13:00 - Assessment and plan (1) Chest pain Current Visit: Yes Status: Acute Assessment and plan: Could be related to non-ST elevation ND. Currently chest pain-free. Continue trending troponins and telemetry monitoring. Remaining plan as below. Qualifiers: Chest pain type: precordial pain Qualified Code(s): R07.2 - Precordial pain (2) Fall Current Visit: Yes Status: Acute Qualifiers: Encounter type: initial encounter Qualified Code(s): W19.XXXA - Unspecified fall, initial encounter (3) NSTEMI (non-ST elevated myocardial infarction) Current Visit: Yes Status: Acute Assessment and plan: Patient presented with chest pain and mild troponin elevation, peak troponin at 0.26. Continue anticoagulation with IV heparin drip. Hold beta nishant and calcium channel nishant at this time due to documented bradycardia. Cardiology consult. Check 2D Echocardiogram. (4) A-fib Current Visit: Yes Status: Chronic Assessment and plan: Currently rate controlled with episodes of bradycardia. Hold beta nishant and calcium channel nishant. Home medication list also shows amiodarone, unclear if patient is still on it. Not on long-term anticoagulation due to risk of bleeding, falls and anemia. Qualifiers: Atrial fibrillation type: paroxysmal Qualified Code(s): I48.0 - Paroxysmal atrial fibrillation (5) COPD (chronic obstructive pulmonary disease) Current Visit: Yes Status: Chronic Assessment and plan: Not in acute exacerbation. Noted to have chronic hypoxic respiratory failure, on home oxygen. Continue when necessary bronchodilators. Qualifiers: COPD type: unspecified COPD Qualified Code(s): J44.9 - Chronic obstructive pulmonary disease, unspecified (6) DMII (diabetes mellitus, type 2) Current Visit: Yes Status: Chronic Assessment and plan: Continue Accu-Chek blood glucose monitoring with sliding scale insulin as needed. Diabetic diet. Qualifiers: Diabetes mellitus complication status: with unspecified complications Diabetes mellitus moth 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 insulin use: without moth 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 use Qualified Code( s): E11.8 - Type 2 diabetes mellitus with unspecified complications (7) HLD (hyperlipidemia) Current Visit: Yes Status: Chronic Qualifiers: Hyperlipidemia type: unspecified Qualified Code(s): E78.5 - Hyperlipidemia , unspecified (8) HTN (hypertension) Current Visit: Yes Status: Chronic Qualifiers: Hypertension type: essential hypertension Qualified Code(s): I10 - Essential (primary) hypertension (9) CAD (coronary artery disease) Current Visit: Yes Status: Chronic Qualifiers: Coronary Disease-Associated Artery/Lesion type: [place] artery [place] vs. transplanted heart: [place] heart Associated angina: without angina Qualified Code(s): I25.10 - Atherosclerotic heart disease of [place] coronary artery without angina pectoris (10) Hypothyroidism Current Visit: Yes Status: Chronic Assessment and plan: Continue levothyroxine. Qualifiers: Hypothyroidism type: unspecified Qualified Code(s): E03.9 - Hypothyroidism , unspecified - Subjective Interval history: Reports improvement in chest pain; no dyspnea, palpitations, orthopnea at this time; - Constitutional Vitals: Temp Pulse Resp BP Pulse Ox 98 F 57 16 127/86 98 10/04/16 16:36 10/04/16 16:36 10/04/16 16:36 10/04/16 16:36 10/04/16 16:36 General appearance: Present: A&O X 3, answers questions appropriately - Respiratory Respiratory exam: Present: CTAB. Absent: accessory muscle use, rales, rhonchi, wheezes - Cardiovascular Cardiovascular exam: Present: irregular rhythm, +S1, +S2. Absent: diastolic murmur, gallop, rubs, systolic murmur - GI/Abdominal GI/Abdominal exam: Present: normal bowel sounds, soft, no peritoneal signs. Absent: distended, tenderness - Extremities Exam Extremities exam: Present: full ROM, warm, radial pulses palpable and symmetrical. Absent: calf tenderness, cyanotic, pedal edema - Neurological Exam Neurological exam: Present: CN II-XII intact, oriented X3, no focal deficits. Absent: pronater drift, facial droop, speech deficit Internal Medicine: Result - Labs CBC & Chem 7: 10/04/16 06:37 10/04/16 06:37 Labs: Short CBC 10/03/16 10/04/16 10/04/16 Range/Units 23:44 01:15 06:37 WBC 8.4 6.6 5.7 (4.3-11.1) K/mcL Hgb 13.1 12.3 12.8 (11.5-15.4) g/dL Hct 41.7 39.7 42.0 (35.3-44.9) % Plt Count 174 169 178 (140-400) K/mcL Neutrophils # 4.8 (1.6-8.9) K/mcL BMP 10/04/16 06:37 Sodium 138 Potassium 4.7 H Chloride 103 Carbon Dioxide 27 BUN 25 H Creatinine 0.81 Glucose 212 H Calcium 9.3 Cardiac Enzymes 10/03/16 10/04/16 10/04/16 Range/Units 23:15 06:37 12:56 Troponin I 0.26 H* 0.23 H* 0.17 H* (0-0.03) ng/mL - ABG Interpretation ABG results: PT/INR, D-dimer PT 12.2 Seconds (9.4-12.1) H 10/04/16 01:15 Consult Discharge Plan - Plan Referrals: Shasta Du, MEDICAL BILLING CODER [Primary Care Provider] -
[2016-10-05] MEDS: Budesonide/Formoterol 160/4.5 MDI IH SCH ×2 (07:46→20:37)
[2016-10-05] MEDS: Insulin LISPRO 300 UNITS/3 ML VIAL SQ SCH ×4 (09:23→21:32)
[2016-10-05] MEDS: Aspirin Enteric Coated 81 MG Tablet PO SCH (09:35)
[2016-10-05] MEDS: Gabapentin 300 MG CAPSULE PO SCH ×3 (09:35→21:32)
[2016-10-05] MEDS: Ascorbic Acid 500 MG TABLET PO SCH (09:36)
[2016-10-05] MEDS: Folic Acid 1 MG TABLET PO SCH (09:36)
[2016-10-05] MEDS: Lisinopril 20 MG TABLET PO SCH (09:36)
[2016-10-05] MEDS: Furosemide 40 MG TABLET PO SCH ×2 (09:36→18:16)
--- NOTE | 2016-10-05 09:48 | Event Note ---
Date of Encounter: 10/05/16 Time of Encounter: 09:00 - Cardiology Event Note Seen and examined. No complaints overnight, denies recurrent chest pain. Echo pending. Presented with NSTEMI and typical chest pain symptoms. Recommend LHC with possible PCI; alternatives, risks, and benefits discussed with patient (and daughter) who are agreeable to proceed. Continue heparin gtt for now. Further recommendations to follow. The patient was discussed and reviewed with Dr. Gross who agrees with plan. Laboratory Tests 10/03/16 10/03/16 10/04/16 21:00 23:15 06:37 Troponin I 0.19 H* 0.26 H* 0.23 H* 10/04/16 12:56 Troponin I 0.17 H*
--- NOTE | 2016-10-05 11:34 | Pre-Sedation Evaluation ---
Pre-sedation evaluation - Pre-sedation checklist Date of procedure: 10/05/16 Procedure: [facility] Recent Vitals: Last Vital Signs Temp 97.6 F 10/05/16 11:28 Pulse 64 10/05/16 11:28 Resp 18 10/05/16 11:28 BP 118/67 10/05/16 11:28 Pulse Ox 98 10/05/16 07:47 H&P (including ROS) documented in medical record: Yes Previous reaction to sedatives/anesthetics: No Dietary Status: NPO after Midnight Airway Assessment: Patient can open mouth completely, TMJ function normal ASA Classification *see protocol: CLASS II-Mild systemic disease Plan of Care: Pt appropriate candidate for procedure/moderate/conscious sedation , Risks/benefits of procedure/sedation discussed w/ patient/family
[2016-10-05] MEDS: Heparin 25,000 UNIT/500 ML D5W 25,000 UNIT/500 ML MLS IVC SCH (11:37)
[2016-10-05] MEDS ORDERED: 0.9 % Sodium Chloride 1,000 ML ONE ×3 (13:19→16:14)
[2016-10-05] MEDS ORDERED: Heparin 1,000 UNITS/500 mL NS 500 ML ONE ×2 (13:19→15:54)
[2016-10-05] MEDS ORDERED: *HR* Heparin 10,000 UNIT/10 ML VIAL ONE ×2 (13:19→15:54)
[2016-10-05] MEDS ORDERED: Verapamil 5 MG/2 ML VIAL ONE (13:19)
[2016-10-05] MEDS ORDERED: Nitroglycerin 1,000 MCG/10 ML VIAL IV ONE (13:19)
[2016-10-05] MEDS ORDERED: *HR* FentaNYL (PF) 100 MCG/2 ML VIAL ONE (15:53)
[2016-10-05] MEDS ORDERED: *HR* Midazolam HCl 2 MG/2 ML VIAL ONE (15:54)
[2016-10-05] MEDS ORDERED: Nitroglycerin Spray 4.9 GM BOTTLE ONE (16:37)
--- NOTE | 2016-10-05 17:24 | Internal Med Progress Note ---
Date of Encounter: 10/05/16 Time of Encounter: 10:15 - Assessment and plan (1) Chest pain Current Visit: Yes Status: Acute Assessment and plan: Could be related to non-ST elevation ID. Currently chest pain-free. Continue trending troponins and telemetry monitoring. Remaining plan as below. Qualifiers: Chest pain type: precordial pain Qualified Code(s): R07.2 - Precordial pain (2) Fall Current Visit: Yes Status: Acute Qualifiers: Encounter type: initial encounter Qualified Code(s): W19.XXXA - Unspecified fall, initial encounter (3) NSTEMI (non-ST elevated myocardial infarction) Current Visit: Yes Status: Acute Assessment and plan: Patient presented with chest pain and mild troponin elevation, peak troponin at 0.26. Continue anticoagulation with IV heparin drip. Hold beta nishant and calcium channel nishant at this time due to occasional bradycardia. Cardiology consult appreciated. Limited Echocardiogram shows preserved EF. Plan for [facility] today, will f/up. (4) A-fib Current Visit: Yes Status: Chronic Assessment and plan: Currently rate controlled with episodes of bradycardia. Hold beta nishant and calcium channel nishant. Home medication list also shows amiodarone, unclear if patient is still on it. Not on long-term anticoagulation due to risk of bleeding, falls and anemia. Qualifiers: Atrial fibrillation type: paroxysmal Qualified Code(s): I48.0 - Paroxysmal atrial fibrillation (5) COPD (chronic obstructive pulmonary disease) Current Visit: Yes Status: Chronic Assessment and plan: Not in acute exacerbation. Noted to have chronic hypoxic respiratory failure, on home oxygen. Continue when necessary bronchodilators. Qualifiers: COPD type: unspecified COPD Qualified Code(s): J44.9 - Chronic obstructive pulmonary disease, unspecified (6) DMII (diabetes mellitus, type 2) Current Visit: Yes Status: Chronic Assessment and plan: Continue Accu-Chek blood glucose monitoring with sliding scale insulin as needed. Diabetic diet. Qualifiers: Diabetes mellitus complication status: with unspecified complications Diabetes mellitus alf insulin use: without intermodal customer service use Qualified Code( s): E11.8 - Type 2 diabetes mellitus with unspecified complications (7) HLD (hyperlipidemia) Current Visit: Yes Status: Chronic Qualifiers: Hyperlipidemia type: unspecified Qualified Code(s): E78.5 - Hyperlipidemia , unspecified (8) HTN (hypertension) Current Visit: Yes Status: Chronic Qualifiers: Hypertension type: essential hypertension Qualified Code(s): I10 - Essential (primary) hypertension (9) CAD (coronary artery disease) Current Visit: Yes Status: Chronic Qualifiers: Coronary Disease-Associated Artery/Lesion type: [place] artery [place] vs. transplanted heart: cantwell heart Associated angina: without angina Qualified Code(s): I25.10 - Atherosclerotic heart disease of [place]well coronary artery without angina pectoris (10) Hypothyroidism Current Visit: Yes Status: Chronic Assessment and plan: Continue levothyroxine. Qualifiers: Hypothyroidism type: unspecified Qualified Code(s): E03.9 - Hypothyroidism , unspecified - Subjective Interval history: Reports improvement in chest pain; no dyspnea, palpitations, orthopnea at this time; awaiting left heart catheterization today; - Constitutional Vitals: Temp Pulse Resp BP Pulse Ox 97.6 F 64 18 118/67 98 10/05/16 11:28 10/05/16 11:28 10/05/16 11:28 10/05/16 11:28 10/05/16 07:47 General appearance: Present: A&O X 3, answers questions appropriately - Respiratory Respiratory exam: Present: CTAB. Absent: accessory muscle use, rales, rhonchi, wheezes - Cardiovascular Cardiovascular exam: Present: irregular rhythm, +S1, +S2. Absent: diastolic murmur, gallop, rubs, systolic murmur - GI/Abdominal GI/Abdominal exam: Present: normal bowel sounds, soft, no peritoneal signs. Absent: distended, tenderness - Extremities Exam Extremities exam: Present: full ROM, warm, radial pulses palpable and symmetrical. Absent: calf tenderness, cyanotic, pedal edema Internal Medicine: Result - Labs CBC & Chem 7: 10/04/16 06:37 10/04/16 06:37 - ABG Interpretation ABG results: PT/INR, D-dimer PT 12.2 Seconds (9.4-12.1) H 10/04/16 01:15 Consult Discharge Plan - Plan Referrals: Shasta Du, [employer] DELIV[employer]IVER [Primary Care Provider] -
--- NOTE | 2016-10-05 17:25 | Invasive Diagnostic Lab Proc ---
Name: Sabrina Mascorro Date of Study: 10/05/2016 Date: 1935 Ht: 57.9in Medical Record#: [id number] Age: 80 Wt: 123.46lb Gender: Female BSA: 1.48 Order #: [id number] BMI: 25.92 Physicians Procedure Physician: Ben Santiago MD, [facility] Referring MD: Referring MD: Staff Name Position Time In Aniyah Banks RT Scrub 01:57 PM Philippe Hollins RN Consumer Lending Manager 01:57 PM Samm Washington RT (R) Monitor 01:57 PM Aniyah Banks RT Monitor 04:17 PM Samm Washington RT (R) Scrub 04:17 PM Philippe Hollins RN Consumer Lending Manager 04:17 PM Indications Indication Non-Stemi Procedures Performed Procedure CORONARY ARTERY ANGIO S&I Pre-Procedure Checklist Informed consent is complete signed and on chart. H&P is on chart. ID band is on and ID verified with patient. Patient NPO for procedure The procedure was described for the patient and questions were answered. Blood Pressure: 109/65 ECG is on chart. Rhythm: Sinus Bradycardia Plan of Care Patient will tolerate the procedure without complications. Adequate level of comfort will be maintained. Hemodynamics will remain stable Patient will recover from procedure without complications. Respiratory function will be maintained. Cardiac rhythm will remain stable. Patient temperature will be maintained. Patient and/or family have verbalized understanding of the procedure. Patient Education Chief Complaint/Reason for Test: Cardiac Cath Developmental Category: Geriatric (65+ years) Developmentally Appropriate for Age: Yes Learning Barriers: None Education Needs: Procedure Education Method: Verbal Information Taught: Cardiac Cath Educational Evaluation: Able to repeat information Intravenous Access Time IV Size Location DC'd Fluid/Drip Rate Units RN 20g 1 1/4" Peripheral-Lock On Arrival Lt Antecubital Allergies SULFA Vital Signs Time BP (mmHg) HR (bpm) O2 Sat. RR (bpm) LOC 109 / 65 68 98 % 16 5 = Fully awake and oriented or at pre-proc level 01:57 PM / % 5 = Fully awake and oriented or at pre-proc level 01:58 PM / % 5 = Fully awake and oriented or at pre-proc level 04:18 PM / % 5 = Fully awake and oriented or at pre-proc level 04:18 PM / % 4 = Oriented but drowsy 04:35 PM / % 4 = Oriented but drowsy 04:50 PM / % 4 = Oriented but drowsy 04:17 PM 138 / 72 69 97 % 16 04:20 PM 133 / 53 65 96 % 23 04:22 PM 114 / 52 59 97 % 20 04:25 PM 113 / 53 57 98 % 24 04:28 PM 107 / 55 69 97 % 10 04:31 PM 109 / 45 59 98 % 16 04:34 PM 111 / 56 63 96 % 21 04:37 PM 114 / 51 60 96 % 16 04:40 PM 99 / 52 57 97 % 20 04:43 PM 104 / 45 62 96 % 17 04:46 PM 86 / 45 62 95 % 20 04:49 PM 85 / 44 60 95 % 20 04:52 PM 91 / 45 59 95 % 19 04:55 PM 95 / 48 64 95 % 28 04:58 PM 94 / 46 66 96 % 17 05:01 PM 101 / 47 59 97 % 17 05:04 PM 111 / 50 60 97 % 19 05:07 PM 115 / 54 60 97 % 18 05:10 PM 113 / 52 56 97 % 18 Procedural Medications Time Medication Dose Units Method Given By 04:18 PM Oxygen 2 L/min nasal cannula Philippe Hollins RN 04:18 PM Versed 2 mg Intravenous CarlthornPhilippe rose RN 04:18 PM Fentanyl 25 mcg Intravenous Philippe Hollins RN 04:28 PM Lidocaine 2% 13 ml Subcutaneous Ben Santiago MD, FAC 04:35 PM Lidocaine 2% 0.5 ml Subcutaneous Ben Santiago MD, FACC 04:41 PM Nitroglycerin 0.4 mcg Intracoronary Philippe Hollins RN 04:42 PM Nitroglycerin 0.4 mcg Intracoronary Philippe Hollins RN 04:45 PM Lidocaine 2% 0.5 ml Subcutaneous Ben Santiago MD, FACC 04:49 PM Oxygen 4 L/min nasal cannula Philippe Hollins RN 04:53 PM Heparin 2000 units Nitroglycerin 200 mcg Verapamil 2.5 mg Intraarterial Ben Santiago MD, FAC ASA Classification: CLASS II- Mild systemic disease (i.e. well-controlled diabetes, hypertension, asthma, cigarette smoking) Nikhil Score Preprocedure Postprocedure Activity 2- Moves 4 extremities sustained head lift Activity 2- Moves 4 extremities sustained head lift Circulation 2- SBP +/= 20 points of pre-anesthetic level Circulation 2- SBP +/= 20 points of pre-anesthetic level Consciousness 2- Awake and alert oriented x 3 Consciousness 2- Awake and alert oriented x 3 O2 Saturation 2- Able to maintain O2 satruation of 92% on room air O2 Saturation 2- Able to maintain O2 satruation of 92% on room air Respiratory 2- Able to deep breathe and cough well Respiratory 2- Able to deep breathe and cough well Total Score 10 Total Score 10 Contrast Agent: Isovue Diagnostic Contrast: 35 ml Total Contrast: 35 ml Fluoro Dose: 109 mGy Procedure Log Time Note Enter By 01:57 PM Pt arrived to recyclable materials distributor 1 at 13:57 [email or web address] 01:57 PM Aniyah Banks RT Position: Scrub Time in: ::57 PM Philippe Hollins RN Position: Consumer Lending Manager Time in: :57 01:57 PM Samm Washington RT (R) Position: Monitor Time in: ::57 PM Time: 13:57 Patient comfortable and pain free: Yes 2 01:58 PM Time: 13:57LOC: 5 = Fully awake and oriented or at pre-proc level [email or web address] 02:01 PM Clinical Presentation: Non-STEMI [email or web address] 02:02 PM Patient charges- Angio tray pack, Navilyst 3mm J, Pulse Oximetry and ACIST tubing and transducer [email or web address] 02:17 PM Time: 13:58LOC: 5 = Fully awake and oriented or at pre-proc level [email or web address] 02:17 PM Time: 13:57 Patient comfortable and pain free: Yes [email or web address] 02:28 PM pt had to be taken out of room due to a stemi. [email or web address] 04:12 PM Pt arrived to recyclable materials distributor 1 at 16:12 [email or web address] 04:15 PM CathStat 04:15 PM Vitals capture started with the following parameters, Patient=Adult, Interval=3 min, Initial Tdcwjziy=083 mmHg, Deflation Rate=5 mmHg, Cuff placed on Right Arm 04:17 PM HR=69 bpm, ENUW=220/72 mmhg, SpO2=97 %, Resp=16 B/min 04:17 PM Aniyah Banks RT Position: Monitor Time in: 16:17 [email or web address] 04:17 PM Samm Washington RT (R) Position: Scrub Time in: : 04:17 PM Philippe Hollins RN Position: Consumer Lending Manager Time in: 16:17 :17 PM Patient charges- Angio tray pack, Navilyst 3mm J, Pulse Oximetry and ACIST tubing and transducer :17 PM IV Supplies used: J loop Angio Cath. 04: PM Case Delayed Prior emergency case : PM Hair removed from procedure site in holding area using clippers. Bilateral groin prepped with Chloraprep by Philippe Hollins RN, safety strap applied then patient was draped. Skin intact. : PM Physician arrived 16:17 : PM ASA Class CLASS II- Mild systemic disease (i.e. well-controlled diabetes, hypertension, asthma, cigarette smoking) kk: PM Meet and greet completed : PM Sign in performed according to hospital policy. :18 PM Procedure start 16:18 18 PM Time: 16:18 Oxygen on at 2 L/min per nasal cannula by Philippe Hollins RN :18 PM Time: 16:18 Versed 2 mg Intravenous Given by Philippe Hollins RN 18 PM Time: 16:18 Fentanyl 25 mcg Intravenous Given by Philippe Hollins RN :18 PM Time: 16:18 Patient comfortable and pain free: Yes 18 PM Time: 16:18LOC: 5 = Fully awake and oriented or at pre-proc level :18 PM Clinical Presentation: Non-STEMI 04:20 PM HR=65 bpm, RPZH=553/53 mmhg, SpO2=96 %, Resp=23 B/min 04:22 PM HR=59 bpm, DWSP=951/52 mmhg, SpO2=97.0 %, Resp=20 B/min, Comment=sb 04:24 PM Time out performed according to hospital policy kk 04:25 PM HR=57 bpm, TLZU=228/53 mmhg, SpO2=98.0 %, Resp=24 B/min 04:28 PM HR=69 bpm, ONTV=621/55 mmhg, SpO2=97.0 %, Resp=10 B/min, Comment=sb 04:28 PM Time: 16:28 13 ml Lidocaine 2% to right groin Subcutaneous Given by Ben Santiago MD, [facility] 04:28 PM Micro-Introducer Kit utilized for sheath placement [email or web address] 04:31 PM HR=59 bpm, JNPG=928/45 mmhg, SpO2=98.0 %, Resp=16 B/min 04:31 PM 0.035 150cm VSI Tee-Torque wire [id number] [email or web address] 04:34 PM HR=63 bpm, SUFZ=127/56 mmhg, SpO2=96.0 %, Resp=21 B/min 04:35 PM Time: 16:18LOC: 4 = Oriented but drowsy :35 PM Time: 16:18 Patient comfortable and pain free: Yes 04:35 PM femoral access unsuccessful [email or web address] 04:36 PM Time: 16:35 .5 ml Lidocaine 2% to right radial Subcutaneous Given by Ben Santiago MD, [facility] kkner 04:37 PM HR=60 bpm, HPIE=843/51 mmhg, SpO2=96.0 %, Resp=16 B/min 04:40 PM HR=57 bpm, NIBP=99/52 mmhg, SpO2=97.0 %, Resp=20 B/min 04:41 PM Time: 16:41 Nitroglycerin .4 mcg Intracoronary Given by Philippe Hollins RN 04:41 PM ultrasound used for access [email or web address] 04:42 PM Time: 16:42 Nitroglycerin .4 mcg Intracoronary Given by Philippe Hollins RN 04:43 PM HR=62 bpm, TIFJ=639/45 mmhg, SpO2=96.0 %, Resp=17 B/min 04:45 PM Time: 16:45 .5 ml Lidocaine 2% to left radial Subcutaneous Given by Ben Santiago MD, [facility] 04:46 PM HR=62 bpm, NIBP=86/45 mmhg, SpO2=95.0 %, Resp=20 B/min 04:48 PM NIBP STAT measurement started. 04:49 PM HR=60 bpm, NIBP=85/44 mmhg, SpO2=95.0 %, Resp=20 B/min 04:50 PM Time: 16:49 Oxygen on at 4 L/min per nasal cannula by Philippe Hollins RN 04:50 PM Time: 16:35 Patient comfortable and pain free: Yes 04:50 PM Time: 16:35LOC: 4 = Oriented but drowsy kk 04:52 PM HR=59 bpm, NIBP=91/45 mmhg, SpO2=95.0 %, Resp=19 B/min 04:52 PM Access obtained by percutaneous puncture. 5Fr 10cm Terumo Glidesheath sheath placed in left Radial artery. [id number] 04:53 PM Time: 16:53 Patient given 2000 units Heparin, 200 mcg Nitroglycerin, and 2.5 mg Verapamil Intraarterial by Ben Santiago MD, [facility] 04:55 PM HR=64 bpm, NIBP=95/48 mmhg, SpO2=95.0 %, Resp=28 B/min 04:55 PM 5Fr FR 4 catheter inserted over the wire [facility] kk 04:55 PM J wire removed kk 04:55 PM wholey wire reinserted kk 04:56 PM wire removed kk 04:57 PM Recorded Pressure: Ao, HR=61, Condition=Condition 1 (Aorta) Ao 56/40/48 04:57 PM RCA angiography performed in ENGLISH. kk 04:58 PM Catheter removed kk 04:58 PM HR=66 bpm, NIBP=94/46 mmhg, SpO2=96.0 %, Resp=17 B/min, Comment=sb 04:58 PM 5Fr FL 4 catheter inserted over the wire [facility] kk 04:58 PM wire removed 04:59 PM LCA angiography performed in multiple views. [email or web address] 05:00 PM Recorded Pressure: Ao, HR=63, Condition=Condition 1 (Aorta) Ao 60/36/48 05:00 PM NIBP STAT measurement started. 05:01 PM HR=59 bpm, JOKN=610/47 mmhg, SpO2=97 %, Resp=17 B/min 05:01 PM Catheter removed kk 05:02 PM Lesion found in Mid RCA. Pre Stenosis: 70 Pre CAMILA Flow: [email or web address] 05:02 PM Lesion found in Mid LAD. Pre Stenosis: 80 Pre CAMILA Flow: [email or web address] 05:02 PM Lesion found in Mid Circumflex. Pre Stenosis: 30 Pre CAMILA Flow: kkall 05:02 PM Coronary Dominance: Left [email or web address] 05:02 PM 5Fr Pigtail catheter inserted over the wire DNC kkall 05:04 PM HR=60 bpm, GUCE=751/50 mmhg, SpO2=97.0 %, Resp=19 B/min 05:05 PM Time: 16:50LOC: 4 = Oriented but drowsy kkall 05:05 PM Time: 16:50 Patient comfortable and pain free: Yes kk 05:05 PM wire and catheter removed kk 05:06 PM Left Main Coronary Artery with 0% stenosis kkall 05:06 PM Proximal Left Anterior Descending Coronary Artery with 0% stenosis. If graft is supplying this territory, 0 % stenosis. [email or web address] 05:06 PM Mid/Distal Left Anterior Descending Coronary Artery and diagonal branches with 80% stenosis. If graft is supplying this area, 0 % stenosis [email or web address] 05:06 PM Circumflex, Obtuse Marginal, Left Posterior Descending, and Left Posterolateral Coronary Arteries with 30 % stenosis. If graft is supplying this area, 0 % stenosis [email or web address] 05:06 PM Right Coronary, Right Posterior Descending Arteries with Right Posterolateral and Acute Marginal branches with 70 % stenosis. If graft is supplying this area, 0 % stenosis kkallner 05:06 PM Ramus with 0% stenosis. If graft is supplying this area, 0 % stenosis kkall 05:06 PM Procedure completed at 17:06 kk 05:07 PM HR=60 bpm, YBEP=844/54 mmhg, SpO2=97.0 %, Resp=18 B/min 05:07 PM Sign out completed: Radiation Dose 109.25 mGy Fluoro Time: 3.1 Isovue 370 - 200ml contrast 35 ml given by Ben Santiago MD, [facility]. Complications: NoneCardiac Rehab Consult needed: YesConfirmed administered medications: Yes [email or web address] 05:08 PM Isovue 370 - 200ml,1 Bottle(s) used. [email or web address] 05:08 PM 12 ml air in Vasc Band. [email or web address] 05:08 PM Post ECG Sinus Bradycardia [email or web address] 05:08 PM Post Blood Pressure 115/54 kkallner 05:08 PM Information taught Cardiac Cath and Vasc Band kkallner 05:08 PM Education needs Procedure, Plan of Care, and Responsibilities of Patient in Care kkall 05:08 PM Learning barriers :None [email or web address] 05:08 PM Education Methods Verbal [email or web address] 05:08 PM Education evaluation Able to repeat information [email or web address] 05:09 PM Site status No bleeding/hematoma - Rt Radial as reported by Samm Washington RT (R) at 17:08 [email or web address] 05:09 PM Plavix, Effient or Brilinta given No kkallner 05:09 PM Delay to floor No [email or web address] 05:09 PM Patient out of room: 17:09 [email or web address] 05:09 PM Family placed in consult room. [email or web address] 05:09 PM Complications: None [email or web address] 05:09 PM Fluoro Time: 3.1 [email or web address] 05:09 PM Isovue 370 - 200ml contrast 35 ml given by Ben Santiago MD, FACC. [email or web address] 05:09 PM Radiation Dose 109.25 mGy [email or web address] 05:10 PM HR=56 bpm, RIEP=200/52 mmhg, SpO2=97 %, Resp=18 B/min 05:13 PM Vitals capture stopped. 05:19 PM Report given to Mariel EVANS Pt taken to E Room #25. 17:[facility] Complications Complication None None Hemodynamics Pressures Site Systolic/A Wave Diastolic/V Wave Mean AO 56 40 48 AO 60 36 48 Post Procedure Information Blood Pressure: 115/54 mmHg Rhythm: Sinus Bradycardia Post procedural instructions were given Site Checks Time Location Status Staff Sheath In? Note 05:08 PM Rt Groin No bleeding/hematoma Samm Washington RT (R) Pulses Time Site Pre-Procedure Post-Procedure Note 10/05/2016 5:15:00 PM Bilateral radial 1+ Updated by Aniyah Banks RT ToddR) on 10/05/2016 5:19:53 PM electronically signed on 10/05/2016 5:20:42 PM with status of Final
--- NOTE | 2016-10-05 17:29 | Invasive Diagnostic Lab ---
Name: Sabrina Mascorro Date of Study: 10/05/2016 Date: 1935 Ht: 147.0 cm /57.9 in Medical Record#: [id number] Age: 80 Wt: 56. kg / 123.46 lb Account/Order#: [id number] Gender: Female BSA: 1.48 Order #: [id number] Fluoro Dose: 109 mGy BMI: 25.92 Procedure Physician: Ben Santiago MD, FACC Referring MD: Referring MD: Procedures Performed: CORONARY ANGIOGRAPHY Indications: Non-Stemi Impressions: There is severe two vessel coronary artery disease. History/Risk Factors: A-fib COPD CVA HLD [place] Diabetes Hypertension CHF Procedure Access obtained in the left Radial artery by percutaneous puncture Complications: None, None Contrast: Isovue 35ml Hemodynamics: Pressures Site Systolic/ A Wave Diastolic/ V Wave End Diastolic/ Mean HR AO 56 40 48 61 AO 60 36 48 63 Coronary Dominance: Left Lesion Findings/Interventions * Left Main Coronary Artery The LMCA is angiographically free of disease. * Left Anterior Descending There is a 80% stenosis in the Mid LAD. * Circumflex There is a 30% stenosis in the Mid Circumflex. * Right Coronary Artery There is a 70% stenosis in the Mid RCA. Patient has tortuous arteries. Updated by Aniyah Banks RT (R) on 10/05/2016 5:13:13 PM Ben Santiago MD, FACC electronically signed on 10/05/2016 5:21:45 PM with status of Final
[2016-10-05] MEDS: Sennosides/Docusate Sodium TABLET PO SCH (21:32)
[2016-10-05] MEDS: *HR* OxyCODONE/APAP 10/325 TABLET PO PRN (21:54)
[2016-10-06] MEDS: *HR* OxyCODONE/APAP 10/325 TABLET PO PRN ×2 (05:53→11:21)
[2016-10-06] MEDS: Budesonide/Formoterol 160/4.5 MDI IH SCH ×2 (07:43→21:45)
[2016-10-06] MEDS: Insulin LISPRO 300 UNITS/3 ML VIAL SQ SCH ×3 (08:25→18:10)
[2016-10-06] MEDS: Ascorbic Acid 500 MG TABLET PO SCH (08:27)
[2016-10-06] MEDS: Folic Acid 1 MG TABLET PO SCH (08:27)
[2016-10-06] MEDS: Sennosides/Docusate Sodium TABLET PO SCH ×2 (08:27→20:34)
[2016-10-06] MEDS: Lisinopril 20 MG TABLET PO SCH (08:27)
[2016-10-06] MEDS: Aspirin Enteric Coated 81 MG Tablet PO SCH (08:27)
[2016-10-06] MEDS: Gabapentin 300 MG CAPSULE PO SCH ×3 (08:27→20:34)
[2016-10-06] MEDS: Furosemide 40 MG TABLET PO SCH ×2 (08:27→16:55)
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
[2016-10-06] MEDS: Metoprolol XL (24 HR) Succ 25 MG TAB.ER.24H PO SCH (11:21)
[2016-10-06] MEDS: Isosorbide MONOnitrate (24 HR) 30 MG TAB.ER.24H PO SCH (11:21)
--- NOTE | 2016-10-06 12:58 | Discharge Summary ---
Date of Encounter: 10/06/16 Time of Encounter: 12:53 - Discharge Diagnosis (1) Chest pain Priority: Primary Status: Acute Qualifiers: Chest pain type: precordial pain Qualified Code(s): R07.2 - Precordial pain (2) Fall Priority: Primary Status: Acute Qualifiers: Encounter type: initial encounter Qualified Code(s): W19.XXXA - Unspecified fall, initial encounter (3) NSTEMI (non-ST elevated myocardial infarction) Priority: Primary Status: Acute (4) A-fib Priority: Secondary Status: Chronic Qualifiers: Atrial fibrillation type: paroxysmal Qualified Code(s): I48.0 - Paroxysmal atrial fibrillation (5) COPD (chronic obstructive pulmonary disease) Priority: Secondary Status: Chronic Qualifiers: COPD type: unspecified COPD Qualified Code(s): J44.9 - Chronic obstructive pulmonary disease, unspecified (6) DMII (diabetes mellitus, type 2) Priority: Secondary Status: Chronic Qualifiers: Diabetes mellitus complication status: with unspecified complications Diabetes mellitus 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 insulin use: without rat 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 use Qualified Code( s): E11.8 - Type 2 diabetes mellitus with unspecified complications (7) HLD (hyperlipidemia) Priority: Secondary Status: Chronic Qualifiers: Hyperlipidemia type: unspecified Qualified Code(s): E78.5 - Hyperlipidemia , unspecified (8) HTN (hypertension) Priority: Secondary Status: Chronic Qualifiers: Hypertension type: essential hypertension Qualified Code(s): I10 - Essential (primary) hypertension (9) CAD (coronary artery disease) Priority: Secondary Status: Chronic Qualifiers: Coronary Disease-Associated Artery/Lesion type: [place] artery [place] vs. transplanted heart: [place] heart Associated angina: without angina Qualified Code(s): I25.10 - Atherosclerotic heart disease of [place] coronary artery without angina pectoris (10) Hypothyroidism Priority: Secondary Status: Chronic Qualifiers: Hypothyroidism type: unspecified Qualified Code(s): E03.9 - Hypothyroidism , unspecified - Discharge Medications Prescriptions: Clopidogrel [Plavix] 75 mg PO DAILY #30 tab Isosorbide MONOnitrate (24 HR) [Imdur] 30 mg PO DAILY #30 Metoprolol XL (24 HR) Succ [Toprol Xl] 25 mg PO DAILY #30 Home Medications: Ascorbate Calcium [Vitamin C] 500 mg PO DAILY 04/15/15 [History] Aspirin [Adult Low Dose Aspirin EC] 81 mg PO DAILY 02/17/16 [History] Budesonide/Formoterol 160/4.5 [Symbicort 160/4.5] 2 puff IH BID 04/15/15 [ History] Ferrous Sulfate 325 mg PO DAILY 04/15/15 [History] Folic Acid 1 mg PO DAILY #0 04/15/15 [History] GlipiZIDE [Glipizide Xl] 5 mg PO DAILY 04/15/15 [History] Lansoprazole [Prevacid] 30 mg PO DAILY 04/15/15 [History] Levothyroxine [Synthroid] 75 mcg PO DAILY 04/15/15 [History] Meclizine [Antivert] 12.5 mg PO QID PRN 04/15/15 [History] Metformin HCl [Fortamet] 500 mg PO BIDWM 04/15/15 [History] Metoclopramide HCl 5 mg PO QID PRN 04/15/15 [History] Oxycodone HCl/Acetaminophen [Percocet 10-325 mg Tablet] 1 tab PO Q6H PRN [History] Sertraline HCl [Zoloft] 100 mg PO DAILY 04/15/15 [History] Gabapentin [Neurontin] 300 mg PO TID 11/26/15 [History] Lisinopril [Zestril] 20 mg PO DAILY 11/26/15 [History] Oxygen 4 l .ROUTE AD 06/16/16 [History] Furosemide [Lasix] 40 mg PO BID #0 06/21/16 [Rx] Magnesium Hydroxide [Milk of Magnesia] 400 mg PO DAILY PRN 10/04/16 [History] Sucralfate [Carafate] 1 gm PO BID 10/04/16 [History] Clopidogrel [Plavix] 75 mg PO DAILY #30 tab 10/06/16 [Rx] Isosorbide MONOnitrate (24 HR) [Imdur] 30 mg PO DAILY #30 10/06/16 [Rx] Metoprolol XL (24 HR) Succ [Toprol Xl] 25 mg PO DAILY #30 10/06/16 [Rx] Nitroglycerin [Nitrostat] 0.4 mg SL AD PRN 10/06/16 [History] Allergies/Adverse Reactions: Allergies Sulfa (Sulfonamide Antibiotics) Allergy (Severe, Verified 05/03/16 14:43) Swelling of Lip/Tongue/Throat Procedures/tests Complete & Pending: Procedures Performed prior 72 hours Category Date Time Status CL Cardiac Catheterization [CL] Routine [place] 10/05/16 09:37 Completed EV limited echocardiogram Routine Y 10/04/16 14:27 Completed Date of admission: 10/03/16 23:00 Primary care physician: Shasta Du CNP Consults: 10/03/16 23:33 Consult to Nutrition [CONS] Routine Comment: decreased appetite Consulting Provider: NUTRITION Reason for Dietary Consult: MST Score Consult to Conciliator [CONS] Routine Reason for SW Consult: oxygen therapy at home 10/04/16 14:29 Consult to Cardiac Rehabilitation-Phase1 [CONS] Routine Comment: Reason for Consult: suspected NSTEMI, hx CAD Call Completed: No Discharging clinician: Leah Morataya Anticipated date of discharge: 10/06/16 - Patient Status Disposition: Home, Self-Care Condition: Good Functional capacity at discharge: independent ambulation Overall status at discharge: patient is progressing back to baseline - Discharge Instructions Instructions: Metoprolol (By mouth), Isosorbide Mononitrate (By mouth), Clopidogrel (By mouth), Atrial Fibrillation (DC), Chest Pain (DC), Hypothyroidism (DC), Diabetes Mellitus Type 2 in Adults (DC), Chronic Obstructive Pulmonary Disease (DC) Follow Up With: Shasta Du CNP [Primary Care Provider] - (OFFICE WILL CONTACT YOU WITH APPOINTMENT DATE/TIME, IF NO INFORMATION GIVEN PLEASE CALL ON 10/10/16 TO OBTAIN APPOINTMENT DATE AND TIME) Miko Rea MD [Partnered Physician] - (OFFICE WILL CONTACT YOU WITH FOLLOW UP APPOINTMENT DATE AND TIME) Additional Instructions: F/up with PCP in 1-2 weeks F/up with Cardiology- [place] as scheduled - Diet and Activity Activity: resume usual activities as tolerated, wear oxygen at all times Diet: diabetic diet, low fat, low cholesterol, low salt diet Hospital course: Ms. Mascorro is a 80 year old female with the above medical problems who was initially admitted with chest pain and fall. She was noted to have elevated troponin and was treated for non-ST elevation [place] with IV heparin drip, aspirin and Plavix. She has history of atrial fibrillation and was noted to have borderline bradycardia and her beta nishant was initially held. She is not on long-term anticoagulation due to risk of falls, elderly age and anemia. Limited Echocardiogram showed preserved ejection fraction and normal wall motion. Cardiology was consulted and patient underwent left heart catheterization, which showed severe two-vessel coronary artery disease- coronary arteries were described as starches and medical therapy recommended (80 % mid LAD and 70% mid RCA). Patient remains hemodynamically stable. Beta nishant has been restarted and patient is tolerating well. She is otherwise medically stable for discharge with outpatient cardiology follow-up. - Time Spent with Patient Total time spent providing and/or coordinating discharge services: Greater than 30 minutes (40 min) - Constitutional Vitals: Temp Pulse Resp BP Pulse Ox 97.8 F 66 18 108/96 92 10/06/16 07:47 10/06/16 12:39 10/06/16 12:39 10/06/16 12:39 10/06/16 12:39 General appearance: Present: A&O X 3, answers questions appropriately - Cardiovascular Cardiovascular exam: Present: irregular rhythm, +S1, +S2. Absent: diastolic murmur, gallop, rubs, systolic murmur
[2016-10-07] MEDS: Insulin LISPRO 300 UNITS/3 ML VIAL SQ SCH ×5 (00:52→22:37)
[2016-10-07 06:16] LABS: Calcium 8.8 mg/dL (8.6-10.8)
[2016-10-07 06:19] LABS: Potassium 4.8 mEq/L (3.5-4.5)
[2016-10-07 07:00] LABS: Basophils % 0.1 %; Hematocrit 39.1 % (35.3-44.9); Immature Granulocytes % 0.8 % (0-4); Immature Platelets 8.5 % (1.1-6.1); Lymphocytes # 0.6 K/mcL (0.6-4.6); Mean Corpuscular HGB Conc 30.7 g/dL (31.6-35.5); Mean Corpuscular Hemoglobin 28.2 pg (28.0-33.3); Mean Corpuscular Volume 91.8 fL (83.0-100.0); Mean Platelet Volume 11.5 fL (9.4-12.4); Monocytes # 0.4 K/mcL (0.0-1.3); Monocytes % 3.1 %; Platelet Count 182 K/mcL (140-400); Red Blood Count 4.26 M/mcL (3.82-4.97); Red Cell Distribution Width 13.7 % (11.5-14.5)
[2016-10-07] MEDS: Ascorbic Acid 500 MG TABLET PO SCH (08:48)
[2016-10-07] MEDS: Lisinopril 20 MG TABLET PO SCH (08:48)
[2016-10-07] MEDS: Furosemide 40 MG TABLET PO SCH (08:48)
[2016-10-07] MEDS: Metoprolol XL (24 HR) Succ 25 MG TAB.ER.24H PO SCH (08:49)
[2016-10-07] MEDS: Folic Acid 1 MG TABLET PO SCH (08:49)
[2016-10-07] MEDS: Aspirin Enteric Coated 81 MG Tablet PO SCH (08:49)
[2016-10-07] MEDS: Isosorbide MONOnitrate (24 HR) 30 MG TAB.ER.24H PO SCH (08:49)
[2016-10-07] MEDS: Gabapentin 300 MG CAPSULE PO SCH ×3 (08:50→20:23)
[2016-10-07] MEDS: Sennosides/Docusate Sodium TABLET PO SCH ×2 (08:50→20:22)
[2016-10-07] MEDS ORDERED: 0.9 % Sodium Chloride 1,000 ML IVC SCH (10:15)
[2016-10-07] MEDS: Budesonide/Formoterol 160/4.5 MDI IH SCH ×2 (11:22→22:00)
[2016-10-07 16:29] LABS: CK-MB (CK isoenzymes) 0 % (0-4); CK-MM (CK-isoenzymes) 100 % (96-100)
[2016-10-07 16:29] LABS: CK-MB (CK isoenzymes) 0 % (0-4); CK-MM (CK-isoenzymes) 100 % (96-100)
[2016-10-07 22:23] LABS: ABG Base Excess 5.3 mEq/L (-2.0 to 3.0); ABG HCO3 31.8 mEQ/L (21-27); ABG Oxygen Saturation 95 % (95-98); ABG PCO2 55 mmHg (35-45); ABG PH 7.37 pH Units (7.32-7.45); ABG PO2 80 mmHg (85-104); ABG TCO2 33.5 mEq/L (20-26)
[2016-10-07 22:25] LABS: Blood Gas FiO2 32 %
[2016-10-08 04:19] LABS: Basophils % 0.1 %; Eosinophils % 0.4 %; Immature Granulocytes % 0.7 % (0-4); Lymphocytes # 0.7 K/mcL (0.6-4.6); Lymphocytes % 6.2 %; Mean Corpuscular HGB Conc 31.2 g/dL (31.6-35.5); Mean Corpuscular Hemoglobin 28.4 pg (28.0-33.3); Mean Corpuscular Volume 90.9 fL (83.0-100.0); Mean Platelet Volume 11.6 fL (9.4-12.4); Monocytes # 0.6 K/mcL (0.0-1.3); Monocytes % 5.2 %; Neutrophils # 9.9 K/mcL (1.6-8.9); Platelet Count 163 K/mcL (140-400); Red Blood Count 3.63 M/mcL (3.82-4.97); Red Cell Distribution Width 13.7 % (11.5-14.5); Segmented Neutrophils % 87.4 %
[2016-10-08 04:21] LABS: Hemoglobin 10.3 g/dL (11.5-15.4)
[2016-10-08 04:35] LABS: BUN/Creatinine Ratio 36 (6-26); Blood Urea Nitrogen 36 mg/dL (7-20); Calcium 8.7 mg/dL (8.6-10.8); Carbon Dioxide 34 mEq/L (19-29); Chloride 97 mEq/L (98-109); Glucose 125 mg/dL (70-99); Osmolality,Calculated 294 (280-300); Potassium 4.3 mEq/L (3.5-4.5); Sodium 137 mEq/L (136-145); eGFR For African Americans > 60 (> 60); eGFR For Non-African Americans 53 (> 60)
[2016-10-08 07:09] LABS: CK Total (Ck Isoenzymes) 33 U/L (20-180); CK-BB (CK isoenzymes) 0 % (0-0)
[2016-10-08 07:10] LABS: CK Total (Ck Isoenzymes) 32 U/L (20-180); CK-BB (CK isoenzymes) 0 % (0-0)
[2016-10-08] MEDS: Insulin LISPRO 300 UNITS/3 ML VIAL SQ SCH ×4 (08:00→23:07)
[2016-10-08] MEDS: Metoprolol XL (24 HR) Succ 25 MG TAB.ER.24H PO SCH (10:31)
[2016-10-08] MEDS: Gabapentin 300 MG CAPSULE PO SCH ×3 (10:31→23:06)
[2016-10-08] MEDS: Folic Acid 1 MG TABLET PO SCH (10:32)
[2016-10-08] MEDS: Isosorbide MONOnitrate (24 HR) 30 MG TAB.ER.24H PO SCH (10:32)
[2016-10-08] MEDS: Aspirin Enteric Coated 81 MG Tablet PO SCH (10:32)
[2016-10-08] MEDS: Sennosides/Docusate Sodium TABLET PO SCH ×2 (10:32→23:07)
[2016-10-08] MEDS: Ascorbic Acid 500 MG TABLET PO SCH (10:32)
[2016-10-08] MEDS: Budesonide/Formoterol 160/4.5 MDI IH SCH ×2 (11:13→19:56)
--- NOTE | 2016-10-08 12:01 | Internal Med Progress Note ---
Date of Encounter: 10/07/16 Time of Encounter: 12:30 - Assessment and plan (1) Chest pain Current Visit: Yes Status: Acute Assessment and plan: Could be related to non-ST elevation [place]. Currently chest pain-free. Continue trending troponins and telemetry monitoring. Remaining plan as below. Qualifiers: Chest pain type: precordial pain Qualified Code(s): R07.2 - Precordial pain (2) Fall Current Visit: Yes Status: Acute Assessment and plan: Physical and occupational therapy evaluation for prolonged hospitalization. Patient does have good home support. Qualifiers: Encounter type: initial encounter Qualified Code(s): W19.XXXA - Unspecified fall, initial encounter (3) NSTEMI (non-ST elevated myocardial infarction) Current Visit: Yes Status: Acute Assessment and plan: Patient presented with chest pain and mild troponin elevation, peak troponin at 0.26. Cardiology consulted and patient underwent left heart catheterization, which showed two-vessel coronary artery disease, recommended medical management. Continue aspirin, Plavix, beta nishant, statin and Imdur. Limited Echocardiogram shows preserved EF. Recommend outpatient cardiology follow-up. (4) A-fib Current Visit: Yes Status: Chronic Assessment and plan: Currently rate controlled with episodes of bradycardia. Continue low-dose beta nishant. Not on long-term anticoagulation due to risk of bleeding, falls and anemia. 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 insulin use: without hotel or motel room service supervisor use Qualified Code( s): E11.8 - Type 2 diabetes mellitus with unspecified complications (7) HLD (hyperlipidemia) Current Visit: Yes Status: Chronic Qualifiers: Hyperlipidemia type: unspecified Qualified Code(s): E78.5 - Hyperlipidemia , unspecified (8) HTN (hypertension) Current Visit: Yes Status: Chronic Qualifiers: Hypertension type: essential hypertension Qualified Code(s): I10 - Essential (primary) hypertension (9) CAD (coronary artery disease) Current Visit: Yes Status: Chronic Qualifiers: Coronary Disease-Associated Artery/Lesion type: [place] artery [place] vs. transplanted heart: [place] heart Associated angina: without angina Qualified Code(s): I25.10 - Atherosclerotic heart disease of [place] coronary artery without angina pectoris (10) Hypothyroidism Current Visit: Yes Status: Chronic Qualifiers: Hypothyroidism type: unspecified Qualified Code(s): E03.9 - Hypothyroidism , unspecified (11) TEO (acute kidney injury) Current Visit: Yes Status: Acute Assessment and plan: Likely related to contrast during left heart catheterization. This may also explain patient's fatigue and drowsiness. Start gentle IV hydration, hold Lasix , YADIRA inhibitor and continue to monitor. - Subjective Interval history: Noted to be slightly drowsy. Reports feeling sleepy and tired. No chest pain, dyspnea or palpitations. - Constitutional Vitals: Temp Pulse Resp BP Pulse Ox 98 F 69 18 130/61 97 10/08/16 08:03 10/08/16 08:03 10/08/16 08:03 10/08/16 08:03 10/08/16 08:03 General appearance: Present: A&O X 3, answers questions appropriately - Respiratory Respiratory exam: Present: CTAB. Absent: accessory muscle use, rales, rhonchi, wheezes - Cardiovascular Cardiovascular exam: Present: RRR, +S1, +S2. Absent: diastolic murmur, gallop, rubs, systolic murmur - GI/Abdominal GI/Abdominal exam: Present: normal bowel sounds, soft (Reducible, nontender ventral hernia.), no peritoneal signs. Absent: distended, tenderness Internal Medicine: Result - Labs CBC & Chem 7: 10/08/16 03:58 10/08/16 03:58 Labs: Short CBC 10/08/16 Range/Units 03:58 WBC 11.4 H (4.3-11.1) K/mcL Hgb 10.3 L D (11.5-15.4) g/dL Hct 33.0 L (35.3-44.9) % Plt Count 163 (140-400) K/mcL Neutrophils # 9.9 H (1.6-8.9) K/mcL BMP 10/08/16 03:58 Sodium 137 Potassium 4.3 Chloride 97 L Carbon Dioxide 34 H BUN 36 H Creatinine 1.00 Glucose 125 H Calcium 8.7 Cardiac Enzymes 10/04/16 10/04/16 Range/Units 06:37 12:56 CK-MB (CK-2) 0 0 (0-4) % - ABG Interpretation ABG results: ABG ABG pH 7.37 pH Units (7.32-7.45) 10/07/16 22:09 ABG pCO2 55 mmHg (35-45) H 10/07/16 22:09 ABG pO2 80 mmHg (85-104) L 10/07/16 22:09 ABG O2 Saturation 95 % (95-98) 10/07/16 22:09 PT/INR, D-dimer PT 12.2 Seconds (9.4-12.1) H 10/04/16 01:15 - Impressions Impressions Hip X-Ray 10/07/16 16:52 IMPRESSION: Degenerative changes. No acute process D/ / Chema Spangler MD / Chema Spangler MD Interpreting Provider: Chema Spangler MD Consult Discharge Plan - Plan Instructions: Metoprolol (By mouth), Isosorbide Mononitrate (By mouth), Clopidogrel (By mouth), Atrial Fibrillation (DC), Chest Pain (DC), Hypothyroidism (DC), Diabetes Mellitus Type 2 in Adults (DC), Chronic Obstructive Pulmonary Disease (DC) Additional Instructions: F/up with PCP in 1-2 weeks F/up with Cardiology- [place] as scheduled Referrals: Shasta Du CNP [Primary Care Provider] - (OFFICE WILL CONTACT YOU WITH APPOINTMENT DATE/TIME, IF NO INFORMATION GIVEN PLEASE CALL ON 10/10/16 TO OBTAIN APPOINTMENT DATE AND TIME) Miko Rea MD [Partnered Physician] - (OFFICE WILL CONTACT YOU WITH FOLLOW UP APPOINTMENT DATE AND TIME) Prescriptions: Clopidogrel [Plavix] 75 mg PO DAILY #30 tab Isosorbide MONOnitrate (24 HR) [Imdur] 30 mg PO DAILY #30 Metoprolol XL (24 HR) Succ [Toprol Xl] 25 mg PO DAILY #30
--- NOTE | 2016-10-08 12:07 | Internal Med Progress Note ---
Date of Encounter: 10/08/16 Time of Encounter: 12:02 - Assessment and plan (1) TEO (acute kidney injury) Current Visit: Yes Status: Resolved Assessment and plan: Improved with IV hydration. Patient's fatigue and drowsiness also improved and she is noted to be doing well. Patient is now medically stable for discharge. She does have good home support. (2) Chest pain Current Visit: Yes Status: Acute Qualifiers: Chest pain type: precordial pain Qualified Code(s): R07.2 - Precordial pain (3) Fall Current Visit: Yes Status: Acute Qualifiers: Encounter type: initial encounter Qualified Code(s): W19.XXXA - Unspecified fall, initial encounter (4) NSTEMI (non-ST elevated myocardial infarction) Current Visit: Yes Status: Acute Assessment and plan: Patient presented with chest pain and mild troponin elevation, peak troponin at 0.26. Cardiology consulted and patient underwent left heart catheterization, which showed two-vessel coronary artery disease, recommended medical management. Continue aspirin, Plavix, beta nishant, statin and Imdur. Limited Echocardiogram shows preserved EF. Recommend outpatient cardiology follow-up. (5) A-fib Current Visit: Yes Status: Chronic Assessment and plan: Currently rate controlled with episodes of bradycardia. Continue low-dose beta nishant. Not on long-term anticoagulation due to risk of bleeding, falls and anemia. 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 insulin use: without halfway use Qualified Code( s): E11.8 - Type 2 diabetes mellitus with unspecified complications (8) HLD (hyperlipidemia) Current Visit: Yes Status: Chronic Qualifiers: Hyperlipidemia type: unspecified Qualified Code(s): E78.5 - Hyperlipidemia , unspecified (9) HTN (hypertension) Current Visit: Yes Status: Chronic Qualifiers: Hypertension type: essential hypertension Qualified Code(s): I10 - Essential (primary) hypertension (10) CAD (coronary artery disease) Current Visit: Yes Status: Chronic Qualifiers: Coronary Disease-Associated Artery/Lesion type: [place] artery [place] vs. transplanted heart: [place] heart Associated angina: without angina Qualified Code(s): I25.10 - Atherosclerotic heart disease of [place] coronary artery without angina pectoris (11) Hypothyroidism Current Visit: Yes Status: Chronic Qualifiers: Hypothyroidism type: unspecified Qualified Code(s): E03.9 - Hypothyroidism , unspecified - Subjective Interval history: Feel better and more alert today; reports being able to get around better; tolerates diet; - Constitutional Vitals: Temp Pulse Resp BP Pulse Ox 98 F 69 18 130/61 97 10/08/16 08:03 10/08/16 08:03 10/08/16 08:03 10/08/16 08:03 10/08/16 08:03 General appearance: Present: A&O X 3, answers questions appropriately - Respiratory Respiratory exam: Present: CTAB. Absent: accessory muscle use, rales, rhonchi, wheezes - Cardiovascular Cardiovascular exam: Present: irregular rhythm, +S1, +S2. Absent: diastolic murmur, gallop, rubs, systolic murmur Internal Medicine: Result - Labs CBC & Chem 7: 10/08/16 03:58 10/08/16 03:58 Labs: Short CBC 10/08/16 Range/Units 03:58 WBC 11.4 H (4.3-11.1) K/mcL Hgb 10.3 L D (11.5-15.4) g/dL Hct 33.0 L (35.3-44.9) % Plt Count 163 (140-400) K/mcL Neutrophils # 9.9 H (1.6-8.9) K/mcL BMP 10/08/16 03:58 Sodium 137 Potassium 4.3 Chloride 97 L Carbon Dioxide 34 H BUN 36 H Creatinine 1.00 Glucose 125 H Calcium 8.7 Cardiac Enzymes 10/04/16 10/04/16 Range/Units 06:37 12:56 CK-MB (CK-2) 0 0 (0-4) % - ABG Interpretation ABG results: ABG ABG pH 7.37 pH Units (7.32-7.45) 10/07/16 22:09 ABG pCO2 55 mmHg (35-45) H 10/07/16 22:09 ABG pO2 80 mmHg (85-104) L 10/07/16 22:09 ABG O2 Saturation 95 % (95-98) 10/07/16 22:09 PT/INR, D-dimer PT 12.2 Seconds (9.4-12.1) H 10/04/16 01:15 - Impressions Impressions Hip X-Ray 10/07/16 16:52 IMPRESSION: Degenerative changes. No acute process D/ / Chema Spangler MD / Chema Spangler MD Interpreting Provider: Chema Spangler MD Consult Discharge Plan - Plan Instructions: Metoprolol (By mouth), Isosorbide Mononitrate (By mouth), Clopidogrel (By mouth), Atrial Fibrillation (DC), Chest Pain (DC), Hypothyroidism (DC), Diabetes Mellitus Type 2 in Adults (DC), Chronic Obstructive Pulmonary Disease (DC) Additional Instructions: F/up with PCP in 1-2 weeks F/up with Cardiology- [place] as scheduled Referrals: Shasta Du CNP [Primary Care Provider] - (OFFICE WILL CONTACT YOU WITH APPOINTMENT DATE/TIME, IF NO INFORMATION GIVEN PLEASE CALL ON 10/10/16 TO OBTAIN APPOINTMENT DATE AND TIME) Miko Rea MD [Partnered Physician] - (OFFICE WILL CONTACT YOU WITH FOLLOW UP APPOINTMENT DATE AND TIME) Prescriptions: Clopidogrel [Plavix] 75 mg PO DAILY #30 tab Isosorbide MONOnitrate (24 HR) [Imdur] 30 mg PO DAILY #30 Metoprolol XL (24 HR) Succ [Toprol Xl] 25 mg PO DAILY #30
[2016-10-09 07:45] VITALS: BP 137/68
[2016-10-09] MEDS: Ascorbic Acid 500 MG TABLET PO SCH (09:27)
[2016-10-09] MEDS: Isosorbide MONOnitrate (24 HR) 30 MG TAB.ER.24H PO SCH (09:27)
[2016-10-09] MEDS: Insulin LISPRO 300 UNITS/3 ML VIAL SQ SCH (09:27)
[2016-10-09] MEDS: Gabapentin 300 MG CAPSULE PO SCH (09:27)
[2016-10-09] MEDS: Aspirin Enteric Coated 81 MG Tablet PO SCH (09:27)
[2016-10-09] MEDS: Metoprolol XL (24 HR) Succ 25 MG TAB.ER.24H PO SCH (09:27)
[2016-10-09] MEDS: Folic Acid 1 MG TABLET PO SCH (09:27)
[2016-10-09] MEDS: Sennosides/Docusate Sodium TABLET PO SCH (09:28)
[2016-10-09] MEDS: Budesonide/Formoterol 160/4.5 MDI IH SCH (10:17)
== END 2016-10-09 10:15 | disposition home or self-care (01) | DRG 190 ==
LOC: EMEROO 19:55 → 2NENU 19:55 → SUATTDRO 23:00
PROVIDERS: ADMIT Internal Medicine; ATTEND Internal Medicine

== ENCOUNTER 2018-07-17 12:09 | Inpatient (IN) ==
[~2018-07-17 12:09] MED LIST: ceFAZolin 1,000 MG, Sodium Chloride IRRigation 1,000 ML IR ONE
[2018-07-17] MEDS ORDERED: *HR* FentaNYL (PF) 100 MCG/2 ML VIAL ONE (12:22)
[2018-07-17] MEDS ORDERED: *HR* Propofol 200 MG/20 ML VIAL IVP ONE (12:22)
[2018-07-17] MEDS ORDERED: *HR* Rocuronium Bromide 50 MG/5 ML VIAL ONE (12:27)
[2018-07-17] MEDS ORDERED: Lidocaine -MPF 2% 2 ML VIAL ONE ×2 (12:27→14:02)
[2018-07-17] MEDS ORDERED: *HR* Succinylcholine 200 MG/10 ML VIAL IVP ONE (12:27)
[2018-07-17] MEDS ORDERED: Lidocaine -MPF 4% 5 ML AMPUL ONE (12:27)
[2018-07-17] MEDS ORDERED: Ondansetron 4 MG/2 ML VIAL ONE (12:27)
[2018-07-17] MEDS ORDERED: Dexamethasone 4 MG/ML VIAL ONE (12:27)
[2018-07-17] MEDS ORDERED: CeFAZolin Syr 2,000MG/20 ML 2,000 MG/20 ML SYRINGE IVPB ONE (12:33)
--- NOTE | 2018-07-17 12:37 | Anesthesia Evaluation PreOp ---
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 SPECIALIST History: CVA, Other (s/p right CEA in 2006 and left CEA in 2012) Other Medical History: Diabetes Type II, Other (significant abdominal hernia with bowel involvement - not repairable per patient) Anesthesia History: No Prior Anesthetic Complications Alcohol Use: none Drug use: none Medications and Allergies Ascorbate Calcium [Vitamin C] 500 mg PO DAILY 04/15/15 [History] Aspirin [Adult Low Dose Aspirin EC] 81 mg PO DAILY 04/15/15 [History] Budesonide/Formoterol 160/4.5 [Symbicort 160/4.5] 2 puff IH BID 04/15/15 [History] Ferrous Sulfate 325 mg PO DAILY 04/15/15 [History] Folic Acid 1 mg PO DAILY #0 04/15/15 [History] GlipiZIDE [Glipizide Xl] 5 mg PO DAILY 04/15/15 [History] Lansoprazole [Prevacid] 30 mg PO DAILY 04/15/15 [History] Levothyroxine [Synthroid] 100 mcg PO DAILY 04/15/15 [History] Meclizine [Antivert] 12.5 mg PO QID PRN 04/15/15 [History] Metformin HCl [Fortamet] 500 mg PO BIDWM 04/15/15 [History] Metoclopramide HCl 5 mg PO QID PRN 04/15/15 [History] Oxycodone HCl/Acetaminophen [Percocet 10-325 mg Tablet] 1 tab PO Q6H PRN 03/30 09/11 [History] Sertraline HCl [Zoloft] 100 mg PO DAILY 04/15/15 [History] Gabapentin [Neurontin] 300 mg PO TID 11/26/15 [History] Lisinopril [Zestril] 20 mg PO DAILY 11/26/15 [History] Oxygen 4 l .ROUTE AD 06/16/16 [History] Furosemide [Lasix] 40 mg PO BID #0 06/21/16 [Rx] Magnesium Hydroxide [Milk of Magnesia] 400 mg PO DAILY PRN 10/04/16 [History] Sucralfate [Carafate] 1 gm PO BID 10/04/16 [History] Clopidogrel [Plavix] 75 mg PO DAILY #30 tab 10/06/16 [Rx] Metoprolol XL (24 HR) Succ [Toprol Xl] 25 mg PO DAILY #30 10/06/16 [Rx] Nitroglycerin [Nitrostat] 0.4 mg SL AD PRN 10/06/16 [History] Isosorbide MONOnitrate (24 HR) [Imdur] 60 mg PO DAILY 05/20/17 [History] dilTIAZem HCl [Diltiazem 24Hr Cd] 360 mg PO 05/20/17 [History] Azithromycin [Zithromax] 250 mg PO DAILY #3 tablet 05/23/17 [Rx] Cefuroxime PO [Ceftin] 500 mg PO Q12HR #6 tablet 05/23/17 [Rx] Lactobacillus [Culturelle] 1 each PO BID #6 cap.sprink 05/23/17 [Rx] Potassium Chloride 10 meq PO DAILY #30 tab.er.prt 05/23/17 [Rx] Allergy/AdvReac Type Severity Reaction Status Date / Time Sulfa (Sulfonamide Allergy Severe Swelling Verified 05/03/16 14:43 Antibiotics) of Lip/Tongue/Throat - Meds/Allergy Pre-op Review Medications Reviewed: Yes Allergies Reviewed: Yes Beta Blockers on Current Med List: Yes (metoprolol) If Beta Blockers taken, Date/Time (Last Dose taken): 07-16-18 metoprolol 9 am Anesthesia Results - Labs Laboratory Tests 07/12/18 07/12/18 12:11 12:11 WBC 7.6 Hgb 13.8 Hct 43.1 Plt Count 218 PT 11.3 INR 1.0 APTT 28.9 - Imaging EKG: report reviewed, image reviewed (SINUS RHYTHM WITH SHORT VT INTERVAL WITH OCCASIONAL SUPRAVENTRICULAR PREMATURE COMPLEXES BASELINE ARTIFACT) Additional studies: TTE: Impressions: LVEF 60%. Mild concentric left ventricular hypertrophy. Indeterminate diastolic function. Normal right ventricular size and function. Mildly dilated left atrium. Mild tricuspid regurgitation. No pulmonary hypertension. Anesthesia Exam Last Vital Signs Temp 97.7 F 07/17/18 12:42 Pulse 66 07/17/18 12:42 Resp 18 07/17/18 12:42 BP 150/68 07/17/18 12:42 Pulse Ox 95 07/17/18 12:42 Weight: 48 kg NPO (# of Hours): > 8 hrs - HEENT Pupil (Motor): Pupils equal, EOMI Mallampati: III Teeth: Edentulous Oral Opening: Greater than 3 - REVENUE SPECIALIST LOC: Oriented - Cardiac Rhythm: Regular Murmur: None - Pulmonary Breath Sounds: bilateral Clear Respiratory Effort: Symmetrical Anesthesia Assess/Plan ASA Score: 4 Anesthetic Plan: General Monitoring Plan: Standard Monitors, A-Line Recovery Plan: PACU
[2018-07-17] MEDS ORDERED: Ringers Solution, Lactated 1,000 ML IVC SCH (12:45)
[2018-07-17] MEDS ORDERED: *HR* OxyCODONE Immed Rel 5 MG TABLET PO PRN (13:03)
[2018-07-17] MEDS ORDERED: *HR* FentaNYL (PF) 100 MCG/2 ML VIAL IVP PRN (13:03)
[2018-07-17] MEDS ORDERED: Heparin 1,000 UNITS/500 mL 1,000 ML ONE (13:22)
--- NOTE | 2018-07-17 13:36 | History & Physical Report ---
Date of Encounter: 07/17/18 Time of Encounter: 13:20 24 Hour HP Update - Instructions Instructions: If the History and Physical is less than 30 days old and was completed prior to A.M. admission and or procedure and has NOT been updated on calendar day of procedure please complete this update prior to performing procedure. - Update Patient reports changes in Medical Condition: No Changes in examination, assessment, or condition: No Changes in Medication: No Preop tests/diagnostics Reviewed: Yes Surgery Remains Indicated: Yes Consent for Planned Operative Procedure(s) Verified: Yes - Pre-Operative Checklist Preoperative Checklist Indicated: Yes Prophylactic Antibiotic Ordered: Yes Home Medications Include Beta Sandro: Yes Beta Sandro Taken Today (Day of Surgery): Yes Beta Sandro Taken Yesterday (Day Prior to Surgery): Yes Is VTE Prophylaxis Indicated?: Yes
[2018-07-17] MEDS ORDERED: EPHEDrine 50 MG/ML VIAL ONE (13:38)
[2018-07-17] MEDS ORDERED: *HR* Heparin 5,000 UNIT/ML VIAL ONE (13:46)
[2018-07-17] MEDS ORDERED: Heparin 1,000 UNITS/500 mL 500 ML ONE (13:58)
[2018-07-17] MEDS ORDERED: Isovue-300 50 ML VIAL ONE ×2 (14:03→14:05)
[2018-07-17] MEDS ORDERED: *HR* Vasopressin 20 UNIT/ML VIAL ONE (15:37)
--- NOTE | 2018-07-17 16:44 | Operative Note ---
Date of procedure: 07/17/18 Pre-op diagnosis: PAD/fem-fem graft occlusion Post-op diagnosis: same Procedure: Thrombectomy of fem-fem bypass graft Left common femoral artery endarterectomy Complications: 0 Anesthesia: GETA Surgeon: Marlon Sullivan Was there an physical therapy assistant instructor present: No Estimated blood loss (cc): 150 Specimen: 0 Condition: stable Disposition: PACU Procedure in Detail: History Sabrina Mascorro is an 82-year-old white female with a long history of vascular disease and multiple other medical problems. The patient had undergone previous iliac stents as well as a left to right femoral-femoral bypass graft by Dr. Martinez. The patient was found to have diminished perfusion of the lower extremities as well as bilateral lower extremity pain. Workup revealed occlusion of the left to right femoral-femoral bypass graft. The patient now comes to the operating room for thrombectomy of graft. Of note the patient has a large ventral hernia that is not judged operable. Procedure After informed consent was obtained the patient was taken to the operating room. General endotracheal anesthesia was established. An arterial line was placed. The abdomen groin and upper thighs were sterilely prepped and draped. A timeout protocol was observed. A left groin incision was then made. Dissection was carried down over the blank of the femoral-femoral graft. Selective controls obtained of the superficial femoral and profunda femoris and common femoral artery. 4000 units of heparin were administered intravenously. After a three- minute delay the graft was incised over the blank of the donor anastomosis. A large amount of complex thrombus was identified. This thrombus was a combination of both acute and chronic thrombus. This was removed by direct pickup and right angle removal as well as by the use of a 4 [place] Tasia catheter. Once all this material was removed the area was irrigated. A large amount of plaque was identified at the distal anastomosis. Therefore an endarterectomy was then performed. A large amount of chronic white plaque and scar tissue was removed from this left groin common femoral vessel. After this was done all of the vessels were flushed with heparinized saline. The graftotomy was closed with a running 6-0 Prolene. With this done and after appropriate backbleeding and flushing the graft was opened. Flow through the graft appeared to be blunted. Therefore even though the circulation distally into the left-sided femoral vessels was multiphasic an incision was made over the right groin area. This allowed me to explore the recipient anastomosis. This was opened through a longitudinal incision. Large amount of intimal hyperplasia was present but it did not appear to occlude or cause a significant stenosis in the runoff anastomosis. A 4 [place] Tasia catheter was then passed retrograde through the graft to ensure there is no residual debris and this was then flushed with heparinized saline. The 4 [place] 40 catheter was then passed distally into the superficial femoral artery which passed for the length of the catheter to below the knee. No thrombus was removed and backbleeding was established. This was then flushed with heparinized saline. The graftotomy was then closed with a running 6-0 Prolene suture. After appropriate backbleeding and flushing the graft wasn't opened. Pulsatile flow was then ensured through the graft and into the right femoral system. Hemostasis was achieved in both incisions. 0.5% Marcaine was infiltrated into the wounds. The wounds were then irrigated with antibiotic containing solution and closed in layers using absorbable suture. Dry sterile dressings were applied. The patient was extubated in the operating room. She was taken from the operating room to the recovery room in stable condition. There were no intraoperative complications.
--- NOTE | 2018-07-17 17:38 | Anesthesia Evaluation Post Op ---
Date of Encounter: 07/17/18 Time of Encounter: 17:37 - Vital Signs Vital Signs: Vital Signs/O2 Sat, Most Current Temp Pulse Resp BP Pulse Ox 97.7 F 60 18 131/63 98 07/17/18 17:25 07/17/18 17:25 07/17/18 17:25 07/17/18 17:25 07/17/18 17:25 - Lungs Lungs: Clear Ascult./Percussion - Airway Airway: Non-obstructed - Cardiovascular Regular Rate - Mental Status Mental Status: Alert & Oriented, Answers Appropriately - Pain Pain Scale: 0 Pain Scale used: Numeric (1 - 10) - Nausea Vomiting Nausea Vomiting: Not Present - Hydration Hydration: Ice chips, Marti catheter - Discharge PostOp Status: Transfer Patient to floor
[2018-07-17] MEDS ORDERED: Ondansetron 4 MG/2 ML VIAL IVP PRN (17:58)
[2018-07-17] MEDS ORDERED: *HR* OxyCODONE/APAP 10/325 TABLET PO PRN (17:58)
[2018-07-17] MEDS ORDERED: Budesonide/Formoterol 160/4.5 1 PUFF INH IH PRN (17:58)
[2018-07-17] MEDS ORDERED: Naloxone 0.4 MG/ML INJ IVP PRN (17:58)
[2018-07-17] MEDS ORDERED: Acetaminophen 325 MG TABLET PO PRN (17:58)
[2018-07-17] MEDS: Furosemide 40 MG TABLET PO SCH (18:20)
[2018-07-18 04:27] LABS: Basophils % 0.2 %; Eosinophils # 0.1 K/mcL (0.0-0.6); Eosinophils % 0.6 %; Hematocrit 30.5 % (35.3-44.9); Immature Granulocytes % 0.5 % (0-4); Mean Corpuscular HGB Conc 32.8 g/dL (31.6-35.5); Mean Corpuscular Hemoglobin 31.4 pg (28.0-33.3); Mean Corpuscular Volume 95.9 fL (83.0-100.0); Mean Platelet Volume 11.1 fL (9.4-12.4); Monocytes # 0.5 K/mcL (0.0-1.3); Monocytes % 6.2 %; Neutrophils # 6.9 K/mcL (1.6-8.9); Platelet Count 155 K/mcL (140-400); Red Blood Count 3.18 M/mcL (3.82-4.97); Red Cell Distribution Width 13.3 % (11.5-14.5); Segmented Neutrophils % 80.5 %
[2018-07-18 04:42] LABS: BUN/Creatinine Ratio 29 (6-26); Blood Urea Nitrogen 22 mg/dL (8-23); Calcium 8.2 mg/dL (8.6-10.3); Carbon Dioxide 33 mEq/L (23-29); Chloride 98 mEq/L (98-107); Glucose 108 mg/dL (70-105); Osmolality,Calculated 290 (280-300); Potassium 3.6 mEq/L (3.5-5.1); Sodium 138 mEq/L (136-145); eGFR For Non-African Americans > 60 (> 60)
[2018-07-18] MEDS: Furosemide 40 MG TABLET PO SCH ×2 (08:13→15:48)
[2018-07-18] MEDS ORDERED: Metoprolol XL (24 HR) Succ 50 MG TAB.ER.24H PO SCH (09:00)
[2018-07-18] MEDS ORDERED: *HR* Amiodarone 200 MG TABLET PO SCH (09:00)
[2018-07-18] MEDS ORDERED: Lisinopril 20 MG TABLET PO SCH (09:00)
[2018-07-18] MEDS ORDERED: Ascorbic Acid 500 MG TABLET PO SCH (09:00)
--- NOTE | 2018-07-18 09:39 | Discharge Summary ---
Orders not resulted at time of discharge: Pending orders 07/17/18 13:06 Red Blood Cells [BBK] Stat Date of Encounter: 07/18/18 Time of Encounter: 08:30 - Discharge Diagnosis (1) PAD (peripheral artery disease) Priority: Primary Status: Chronic Comments: Patient has long history of PAD. Patient presented with occluded left to right femoral-femoral bypass graft. Patient underwent thrombectomy of graft and left common femoral artery endarterectomy. (2) A-fib Priority: Secondary Status: Chronic Comments: Patient has history of atrial fibrillation under medical treatment. Qualifiers: Atrial fibrillation type: chronic Qualified Code(s): I48.2 - Chronic atrial fibrillation (3) COPD (chronic obstructive pulmonary disease) Priority: Secondary Status: Chronic Comments: Patient has long history of chronic COPD Qualifiers: COPD type: unspecified COPD Qualified Code(s): J44.9 - Chronic obstructive pulmonary disease, unspecified (4) HTN (hypertension) Priority: Secondary Status: Chronic Comments: Patient has chronic hypertension Qualifiers: Hypertension type: essential hypertension Qualified Code(s): I10 - Essential (primary) hypertension (5) CAD (coronary artery disease) Priority: Secondary Status: Chronic Comments: Patient has chronic coronary artery disease Qualifiers: Coronary Disease-Associated Artery/Lesion type: unspecified vessel or lesion type [place] vs. transplanted heart: [place] heart Associated angina: without angina Qualified Code(s): I25.10 - Atherosclerotic heart disease of [place] coronary artery without angina pectoris - Hospital Course Hospital course: Ms. Mascorro is a 82 year old female With multiple chronic medical problems including diabetes and atrial fibrillation and coronary artery disease and COPD and large ventral hernia. Patient presented to my clinic with lower extremity pain. This was clearly a combination of both vasculogenic and neurogenic issues. As she has known severe aortoiliac occlusive disease and a finding of occluded [id number] femoral- femoral bypass graft the patient was offered surgery in attempt to try to help control her symptoms. Patient underwent thrombectomy of bypass graft and left femoral artery endarterectomy. Patient had no periprocedural complications. Her feet were warm and pink following surgery. Patient had excellent Doppler signals distally. She had symptomatic improvement. She was felt that for discharge on the afternoon of postoperative day #1. Instructions were given in regards to her medications and wound care prior to discharge. - Time Spent with Patient Total time spent providing and/or coordinating discharge services: - Discharge Medications Prescriptions: No Action Furosemide [Lasix] 40 mg PO BID Budesonide/Formoterol 160/4.5 [Symbicort 160/4.5] 1 puff IH BIDR PRN PRN Reason: Shortness Of Breath Amiodarone HCl [Pacerone] 100 mg PO DAILY OxyCODONE/APAP 10/325 [Percocet 10/325 MG] 1 tab PO Q6HR PRN PRN Reason: Pain Metoprolol Succinate [Toprol Xl] 50 mg PO DAILY Lisinopril [Zestril] 20 mg PO DAILY Clopidogrel [Plavix] 75 mg PO DAILY Atorvastatin Calcium [Lipitor] 80 mg PO DAILY Ascorbic Acid [Vitamin C] 500 mg PO DAILY Home Medications: Amiodarone HCl [Pacerone] 100 mg PO DAILY 07/17/18 [History] Ascorbic Acid [Vitamin C] 500 mg PO DAILY 07/17/18 [History] Atorvastatin Calcium [Lipitor] 80 mg PO DAILY 07/17/18 [History] Budesonide/Formoterol 160/4.5 [Symbicort 160/4.5] 1 puff IH BIDR PRN 07/17/18 [History] Clopidogrel [Plavix] 75 mg PO DAILY 07/17/18 [History] Furosemide [Lasix] 40 mg PO BID 07/17/18 [History] Lisinopril [Zestril] 20 mg PO DAILY 07/17/18 [History] Metoprolol Succinate [Toprol Xl] 50 mg PO DAILY 07/17/18 [History] OxyCODONE/APAP 10/325 [Percocet 10/325 MG] 1 tab PO Q6HR PRN 07/17/18 [History] Allergies/Adverse Reactions: Allergy/AdvReac Type Severity Reaction Status Date / Time Sulfa (Sulfonamide Allergy Severe Swelling Verified 07/17/18 14:02 Antibiotics) of Lip/Tongue/Throat Date of admission: 07/17/18 17:57 Primary care physician: Shasta Du CNP Consults: None Procedure(s) Performed: Thrombectomy of left to right femoral-femoral bypass graft. Left common femoral artery endarterectomy. Discharging clinician: Marlon Sullivan Anticipated date of discharge: 07/18/18 Exam Vital Signs, Last 4 Hours Temp Pulse Resp BP Pulse Ox 07/18/18 07:29 98.2 F 64 18 128/91 90 General: Present: Conversant, No Apparent Distress HEENT: Present: Atraumatic Vascular: Present: Normal capillary refill, Color/Temperature (Feet are warm and pink), Surgical incisions (Dry dressings over surgical incisions at the groin level), Other (Patient has biphasic Doppler signals at the ankle bilaterally.) - Patient Status Disposition: Home, Self-Care Condition: Fair Functional capacity at discharge: uses cane/walker Overall status at discharge: patient is progressing back to baseline - Discharge Instructions Instructions: Femoropopliteal Bypass (DC) Follow Up With: Marlon Sullivan MD [Partnered Physician] - 08/08/18 1:30 pm Yamileth Juares CNP [Advanced Practice Nurse] - 07/24/18 2:00 pm Additional Instructions: Remove femoral dressings on Monday. Keep surgical sites dry for a total of 5 days following surgery. Ambulate with cane both inside and outside as tolerated Resume usual home medications Using incentive spirometer at home 10 times an hour while awake for 2 weeks then discard incentive spirometer. - Diet and Activity Activity: increase activity as tolerated Diet: advance to your usual diet
[2018-07-18 11:26] VITALS: BP 130/64
== END 2018-07-18 16:58 | disposition home or self-care (01) | DRG 181 ==
LOC: SAMDAY 12:09 → 2NNU 17:57
PROVIDERS: ADMIT Surgery Vascular Surgery; ATTEND Surgery Vascular Surgery

== ENCOUNTER 2019-01-31 16:29 | Inpatient (IN) ==
[2019-01-31 17:20] LABS: Bacteria,Urine None Seen per hpf (None-Few); Bilirubin,Urine Negative (Negative); Blood,Urine Moderate (Negative); Clarity,Urine Slightly Cloudy (Clear); Color,Urine Yellow (Yellow); Glucose,Urine (UA) Normal (Normal); Hyaline Casts,Urine None Seen per lpf (None-Few); Ketones,Urine Negative (Negative); Leukocyte Esterase,Urine Large (Negative); Nitrite,Urine Negative (Negative); Protein,Urine 100 mg/dL (Neg-Trace); RBC,Urine 15-30 per hpf (0-3); Specific Gravity,Urine 1.025 (1.010-1.025); Squamous Epithelial Cell,Urine Moderate per lpf (None-Few); Urobilinogen,Urine Normal (Normal); WBC,Urine TNTC per hpf (0-3)
[2019-01-31] MEDS ORDERED: Ondansetron 4 MG/2 ML VIAL IVP ONE (17:30)
[2019-01-31] MEDS ORDERED: Aspirin 81 MG TAB.CHEW PO ONE (17:30)
[2019-01-31] MEDS ORDERED: 0.9 % Sodium Chloride 500 ML IVC ONE (17:30)
[2019-01-31] MEDS ORDERED: Ipratropium/Albuterol Neb 3 ML IH ONE (17:31)
[2019-01-31] MEDS ORDERED: cefTRIAXone 2,000 MG in Water for inj. (sterile) 20 ML IVP ONE (17:31)
[2019-01-31 17:57] LABS: Basophils # 0.1 K/mcL (0.0-0.2); Basophils % 0.3 %; Eosinophils # 0.1 K/mcL (0.0-0.6); Eosinophils % 0.5 %; Hematocrit 40.1 % (35.3-44.9); Hemoglobin 13.5 g/dL (11.5-15.4); Immature Granulocytes % 0.6 % (0-4); Lymphocytes # 1.3 K/mcL (0.6-4.6); Lymphocytes % 6.7 %; Mean Corpuscular HGB Conc 33.7 g/dL (31.6-35.5); Mean Corpuscular Hemoglobin 32.9 pg (28.0-33.3); Mean Corpuscular Volume 97.8 fL (83.0-100.0); Mean Platelet Volume 11.3 fL (9.4-12.4); Monocytes # 0.7 K/mcL (0.0-1.3); Monocytes % 3.6 %; Neutrophils # 16.7 K/mcL (1.6-8.9); Platelet Count 245 K/mcL (140-400); Red Cell Distribution Width 13.9 % (11.5-14.5); Segmented Neutrophils % 88.3 %; White Blood Count 18.9 K/mcL (4.3-11.1)
[2019-01-31 18:10] LABS: Albumin 4.1 g/dL (3.5-5.7); Albumin/Globulin Ratio 1.5 (1.1-2.2); Bilirubin,Direct 0.1 mg/dL (0.0-0.2); Bilirubin,Indirect 0.4 mg/dL (0.0-1.0); Bilirubin,Total 0.5 mg/dL (0.3-1.0); Calcium 8.7 mg/dL (8.6-10.3); Globulin 2.7 g/dL (2.4-3.5); Potassium 3.6 mEq/L (3.5-5.1); Total Protein 6.8 g/dL (6.4-8.9)
[2019-01-31 18:30] LABS: INR 1.1; Prothrombin Time 12.3 Seconds (9.4-12.1)
[2019-01-31 18:33] LABS: Activated Partial Thrombo Time 28.8 Seconds (26.0-36.0)
[2019-01-31] MEDS ORDERED: Naloxone 0.4 MG/ML INJ IVP PRN (20:39)
[2019-01-31] MEDS ORDERED: Ipratropium/Albuterol Neb 3 ML IH PRN (20:44)
[2019-01-31] MEDS ORDERED: Ringers Solution, Lactated 1,000 ML IVC SCH (20:45)
[2019-01-31] MEDS ORDERED: Ondansetron 4 MG/2 ML VIAL IVP PRN (21:52)
[2019-01-31] MEDS ORDERED: Acetaminophen 325 MG TABLET PO PRN (21:52)
[2019-01-31] MEDS ORDERED: *HR* OxyCODONE Immed Rel 5 MG TABLET PO PRN (21:53)
[2019-01-31] MEDS ORDERED: Dextrose Gel 15 GM/37.5 ML TUBE PO PRN ×2 (21:55)
[2019-01-31] MEDS ORDERED: *HR* Dextrose 50 % in Water (Syg) 50 ML SYRINGE IVP PRN (21:55)
[2019-01-31] MEDS: Budesonide/Formoterol 160/4.5 1 PUFF INH IH SCH ×2 (22:33→22:44)
[2019-02-01] MEDS: *HR* Heparin 5,000 UNIT/ML VIAL SQ SCH ×2 (05:25→17:48)
[2019-02-01 05:52] LABS: Basophils % 0.2 %; Eosinophils # 0.1 K/mcL (0.0-0.6); Eosinophils % 0.7 %; Immature Granulocytes % 0.3 % (0-4); Lymphocytes # 1.1 K/mcL (0.6-4.6); Lymphocytes % 8.5 %; Mean Corpuscular Hemoglobin 32.2 pg (28.0-33.3); Mean Corpuscular Volume 100.6 fL (83.0-100.0); Mean Platelet Volume 11.1 fL (9.4-12.4); Monocytes # 0.6 K/mcL (0.0-1.3); Neutrophils # 10.5 K/mcL (1.6-8.9); Platelet Count 198 K/mcL (140-400); Red Blood Count 3.48 M/mcL (3.82-4.97); Red Cell Distribution Width 13.9 % (11.5-14.5); Segmented Neutrophils % 85.3 %; White Blood Count 12.3 K/mcL (4.3-11.1)
[2019-02-01 05:59] LABS: Hemoglobin 11.2 g/dL (11.5-15.4)
[2019-02-01 08:17] LABS: BUN/Creatinine Ratio 23 (6-26); Blood Urea Nitrogen 20 mg/dL (8-23); Calcium 8.3 mg/dL (8.6-10.3); Carbon Dioxide 31 mEq/L (23-29); Chloride 103 mEq/L (98-107); Glucose 82 mg/dL (70-105); Osmolality,Calculated 298 (280-300); Sodium 143 mEq/L (136-145); eGFR For African Americans > 60 (> 60); eGFR For Non-African Americans > 60 (> 60)
[2019-02-01] MEDS: *HR* Amiodarone 200 MG TABLET PO SCH (08:48)
[2019-02-01] MEDS: Lisinopril 20 MG TABLET PO SCH (08:48)
[2019-02-01] MEDS: cefTRIAXone 1,000 MG in Water for inj. (sterile) 10 ML IVPB SCH (08:49)
[2019-02-01] MEDS: Diltiazem CD (24hr) 180 MG CAPSULE PO SCH (08:49)
[2019-02-01] MEDS: Insulin LISPRO 300 UNITS/3 ML VIAL SQ SCH ×4 (08:49→21:40)
[2019-02-01] MEDS: Metoprolol XL (24 HR) Succ 50 MG TAB.ER.24H PO SCH (08:49)
[2019-02-01] MEDS: Ascorbic Acid 500 MG TABLET PO SCH (08:49)
[2019-02-01] MEDS: Budesonide/Formoterol 160/4.5 1 PUFF INH IH SCH ×2 (09:03→20:19)
[2019-02-01] MEDS ORDERED: *HR* OxyCODONE/APAP 10/325 TABLET PO PRN (10:33)
[2019-02-01] MEDS ORDERED: Nitroglycerin 0.4 MG TAB.SUBL SL PRN (11:40)
[2019-02-01] MEDS ORDERED: Nitroglycerin 0.4 MG TAB.SUBL SL ONE (11:41)
[2019-02-02 05:41] LABS: Basophils % 0.3 %; Eosinophils # 0.1 K/mcL (0.0-0.6); Eosinophils % 1.1 %; Hematocrit 33.7 % (35.3-44.9); Hemoglobin 10.6 g/dL (11.5-15.4); Immature Granulocytes % 0.5 % (0-4); Lymphocytes # 1.2 K/mcL (0.6-4.6); Lymphocytes % 13.4 %; Mean Corpuscular HGB Conc 31.5 g/dL (31.6-35.5); Mean Corpuscular Hemoglobin 32.3 pg (28.0-33.3); Mean Corpuscular Volume 102.7 fL (83.0-100.0); Mean Platelet Volume 11.9 fL (9.4-12.4); Monocytes # 0.5 K/mcL (0.0-1.3); Monocytes % 5.3 %; Neutrophils # 7.3 K/mcL (1.6-8.9); Platelet Count 174 K/mcL (140-400); Red Blood Count 3.28 M/mcL (3.82-4.97); Segmented Neutrophils % 79.4 %; White Blood Count 9.1 K/mcL (4.3-11.1)
[2019-02-02] MEDS: *HR* Heparin 5,000 UNIT/ML VIAL SQ SCH ×2 (05:46→16:22)
[2019-02-02 05:56] LABS: BUN/Creatinine Ratio 28 (6-26); Blood Urea Nitrogen 27 mg/dL (8-23); Calcium 8.2 mg/dL (8.6-10.3); Carbon Dioxide 30 mEq/L (23-29); Chloride 105 mEq/L (98-107); Glucose 106 mg/dL (70-105); Osmolality,Calculated 298 (280-300); Sodium 141 mEq/L (136-145); eGFR For African Americans > 60 (> 60); eGFR For Non-African Americans 56 (> 60)
[2019-02-02] MEDS: Budesonide/Formoterol 160/4.5 1 PUFF INH IH SCH ×2 (08:17→20:37)
[2019-02-02] MEDS: Aspirin 81 MG TAB.CHEW PO SCH (10:36)
[2019-02-02] MEDS: Insulin LISPRO 300 UNITS/3 ML VIAL SQ SCH ×4 (10:36→20:50)
[2019-02-02] MEDS: Metoprolol XL (24 HR) Succ 50 MG TAB.ER.24H PO SCH (10:36)
[2019-02-02] MEDS: Lisinopril 20 MG TABLET PO SCH (10:36)
[2019-02-02] MEDS: Ascorbic Acid 500 MG TABLET PO SCH (10:36)
[2019-02-02] MEDS: Diltiazem CD (24hr) 180 MG CAPSULE PO SCH (10:36)
[2019-02-02] MEDS: *HR* Amiodarone 200 MG TABLET PO SCH (10:36)
[2019-02-02] MEDS: cefTRIAXone 1,000 MG in Water for inj. (sterile) 10 ML IVPB SCH (10:37)
[2019-02-03 02:05] LABS: Basophils % 0.4 %; Eosinophils # 0.1 K/mcL (0.0-0.6); Eosinophils % 1.9 %; Hematocrit 32.9 % (35.3-44.9); Hemoglobin 10.5 g/dL (11.5-15.4); Immature Granulocytes % 0.4 % (0-4); Lymphocytes # 1.1 K/mcL (0.6-4.6); Mean Corpuscular HGB Conc 31.9 g/dL (31.6-35.5); Mean Corpuscular Hemoglobin 32.3 pg (28.0-33.3); Mean Corpuscular Volume 101.2 fL (83.0-100.0); Mean Platelet Volume 11.8 fL (9.4-12.4); Monocytes # 0.5 K/mcL (0.0-1.3); Neutrophils # 5.2 K/mcL (1.6-8.9); Platelet Count 179 K/mcL (140-400); Red Blood Count 3.25 M/mcL (3.82-4.97); Red Cell Distribution Width 13.8 % (11.5-14.5); Segmented Neutrophils % 74.3 %
[2019-02-03 02:22] LABS: BUN/Creatinine Ratio 34 (6-26); Blood Urea Nitrogen 28 mg/dL (8-23); Calcium 8.4 mg/dL (8.6-10.3); Carbon Dioxide 29 mEq/L (23-29); Chloride 106 mEq/L (98-107); Glucose 107 mg/dL (70-105); Osmolality,Calculated 298 (280-300); Potassium 3.8 mEq/L (3.5-5.1); Sodium 141 mEq/L (136-145); eGFR For African Americans > 60 (> 60); eGFR For Non-African Americans > 60 (> 60)
[2019-02-03] MEDS: *HR* Heparin 5,000 UNIT/ML VIAL SQ SCH ×2 (05:59→17:52)
[2019-02-03] MEDS: Budesonide/Formoterol 160/4.5 1 PUFF INH IH SCH ×2 (08:09→19:57)
[2019-02-03] MEDS: *HR* Amiodarone 200 MG TABLET PO SCH (09:37)
[2019-02-03] MEDS: Aspirin 81 MG TAB.CHEW PO SCH (09:38)
[2019-02-03] MEDS: Metoprolol XL (24 HR) Succ 50 MG TAB.ER.24H PO SCH (09:38)
[2019-02-03] MEDS: cefTRIAXone 1,000 MG in Water for inj. (sterile) 10 ML IVPB SCH (09:38)
[2019-02-03] MEDS: Diltiazem CD (24hr) 180 MG CAPSULE PO SCH (09:38)
[2019-02-03] MEDS: Ascorbic Acid 500 MG TABLET PO SCH (09:38)
[2019-02-03] MEDS: Lisinopril 20 MG TABLET PO SCH (09:38)
[2019-02-03] MEDS: Insulin LISPRO 300 UNITS/3 ML VIAL SQ SCH ×4 (11:00→20:48)
[2019-02-03 11:08] LABS: Estimated Average Glucose 126 mg/dl
[2019-02-03] MEDS: Cefepime HCl 1,000 MG in 0.9 % Sodium Chloride Mini Bag 100 ML IVPB SCH (17:53)
[2019-02-04] MEDS: *HR* Heparin 5,000 UNIT/ML VIAL SQ SCH ×2 (05:37→15:54)
[2019-02-04] MEDS: Cefepime HCl 1,000 MG in 0.9 % Sodium Chloride Mini Bag 100 ML IVPB SCH ×2 (05:38→15:50)
[2019-02-04 06:09] LABS: Basophils % 0.6 %; Eosinophils # 0.1 K/mcL (0.0-0.6); Eosinophils % 2.2 %; Hematocrit 33.2 % (35.3-44.9); Hemoglobin 10.4 g/dL (11.5-15.4); Immature Granulocytes % 0.4 % (0-4); Lymphocytes % 18.2 %; Mean Corpuscular HGB Conc 31.3 g/dL (31.6-35.5); Mean Corpuscular Volume 102.2 fL (83.0-100.0); Mean Platelet Volume 12.3 fL (9.4-12.4); Monocytes # 0.4 K/mcL (0.0-1.3); Monocytes % 7.9 %; Neutrophils # 3.9 K/mcL (1.6-8.9); Platelet Count 180 K/mcL (140-400); Red Blood Count 3.25 M/mcL (3.82-4.97); Red Cell Distribution Width 13.8 % (11.5-14.5); Segmented Neutrophils % 70.7 %; White Blood Count 5.5 K/mcL (4.3-11.1)
[2019-02-04 06:31] LABS: BUN/Creatinine Ratio 29 (6-26); Blood Urea Nitrogen 21 mg/dL (8-23); Calcium 8.5 mg/dL (8.6-10.3); Carbon Dioxide 30 mEq/L (23-29); Chloride 104 mEq/L (98-107); Glucose 130 mg/dL (70-105); Osmolality,Calculated 299 (280-300); Potassium 4.2 mEq/L (3.5-5.1); Sodium 142 mEq/L (136-145); eGFR For African Americans > 60 (> 60); eGFR For Non-African Americans > 60 (> 60)
[2019-02-04] MEDS: Budesonide/Formoterol 160/4.5 1 PUFF INH IH SCH ×2 (07:32→20:47)
[2019-02-04] MEDS: Insulin LISPRO 300 UNITS/3 ML VIAL SQ SCH ×4 (08:44→21:02)
[2019-02-04] MEDS: Ascorbic Acid 500 MG TABLET PO SCH (08:48)
[2019-02-04] MEDS: *HR* Amiodarone 200 MG TABLET PO SCH (08:48)
[2019-02-04] MEDS: Lisinopril 20 MG TABLET PO SCH (08:49)
[2019-02-04] MEDS: Aspirin 81 MG TAB.CHEW PO SCH (08:49)
[2019-02-04] MEDS: Diltiazem CD (24hr) 180 MG CAPSULE PO SCH (08:49)
[2019-02-04] MEDS: Metoprolol XL (24 HR) Succ 50 MG TAB.ER.24H PO SCH (08:49)
[2019-02-05] MEDS ORDERED: Furosemide 40 MG/4 ML VIAL IVP ONE (02:23)
[2019-02-05 03:21] LABS: Basophils % 0.2 %; Eosinophils # 0.1 K/mcL (0.0-0.6); Eosinophils % 1.1 %; Hematocrit 37.3 % (35.3-44.9); Hemoglobin 11.6 g/dL (11.5-15.4); Immature Granulocytes % 0.4 % (0-4); Lymphocytes # 1.5 K/mcL (0.6-4.6); Lymphocytes % 18.7 %; Mean Corpuscular HGB Conc 31.1 g/dL (31.6-35.5); Mean Corpuscular Hemoglobin 32.4 pg (28.0-33.3); Mean Corpuscular Volume 104.2 fL (83.0-100.0); Monocytes # 0.5 K/mcL (0.0-1.3); Neutrophils # 5.9 K/mcL (1.6-8.9); Platelet Count 185 K/mcL (140-400); Red Blood Count 3.58 M/mcL (3.82-4.97); Red Cell Distribution Width 13.8 % (11.5-14.5); Segmented Neutrophils % 73.6 %
[2019-02-05 03:41] LABS: BUN/Creatinine Ratio 31 (6-26); Blood Urea Nitrogen 19 mg/dL (8-23); Calcium 9.2 mg/dL (8.6-10.3); Carbon Dioxide 29 mEq/L (23-29); Chloride 106 mEq/L (98-107); Glucose 191 mg/dL (70-105); Osmolality,Calculated 297 (280-300); Potassium 4.6 mEq/L (3.5-5.1); Sodium 140 mEq/L (136-145); eGFR For African Americans > 60 (> 60); eGFR For Non-African Americans > 60 (> 60)
[2019-02-05] MEDS: Cefepime HCl 1,000 MG in 0.9 % Sodium Chloride Mini Bag 100 ML IVPB SCH (05:15)
[2019-02-05] MEDS: *HR* Heparin 5,000 UNIT/ML VIAL SQ SCH ×2 (05:15→17:18)
[2019-02-05] MEDS: Budesonide/Formoterol 160/4.5 1 PUFF INH IH SCH ×2 (08:14→20:08)
[2019-02-05] MEDS: Insulin LISPRO 300 UNITS/3 ML VIAL SQ SCH ×4 (08:40→21:32)
[2019-02-05] MEDS: Ascorbic Acid 500 MG TABLET PO SCH (08:41)
[2019-02-05] MEDS: Lisinopril 20 MG TABLET PO SCH (08:41)
[2019-02-05] MEDS: Metoprolol XL (24 HR) Succ 50 MG TAB.ER.24H PO SCH (08:41)
[2019-02-05] MEDS: Aspirin 81 MG TAB.CHEW PO SCH (08:41)
[2019-02-05] MEDS: Diltiazem CD (24hr) 180 MG CAPSULE PO SCH (08:41)
[2019-02-05] MEDS: *HR* Amiodarone 200 MG TABLET PO SCH (08:41)
[2019-02-05] MEDS ORDERED: levoFLOXacin 500 MG TABLET PO SCH (09:00)
[2019-02-06] MEDS: *HR* Heparin 5,000 UNIT/ML VIAL SQ SCH (05:32)
[2019-02-06] MEDS: Budesonide/Formoterol 160/4.5 1 PUFF INH IH SCH (08:07)
[2019-02-06] MEDS: Insulin LISPRO 300 UNITS/3 ML VIAL SQ SCH ×2 (08:43→12:28)
[2019-02-06] MEDS: Lisinopril 20 MG TABLET PO SCH (09:34)
[2019-02-06] MEDS: *HR* Amiodarone 200 MG TABLET PO SCH (09:34)
[2019-02-06] MEDS: Diltiazem CD (24hr) 180 MG CAPSULE PO SCH (09:34)
[2019-02-06] MEDS: Metoprolol XL (24 HR) Succ 50 MG TAB.ER.24H PO SCH (09:34)
[2019-02-06] MEDS: Ascorbic Acid 500 MG TABLET PO SCH (09:34)
[2019-02-06] MEDS: Aspirin 81 MG TAB.CHEW PO SCH (09:35)
[2019-02-06 13:53] VITALS: BP 110/74
[2019-02-07] MEDS ORDERED: Lactobacillus 1 EACH CAP.SPRINK PO SCH (09:00)
== END 2019-02-06 14:02 | disposition home or self-care (01) | DRG 463 ==
LOC: 3BNU 16:29 → EMEROOARM 16:29 → SUATTDRO 19:56 → 3BNU 21:24 → SUATTDRO 02-03 17:54
PROVIDERS: ADMIT Internal Medicine; ATTEND Internal Medicine

== ENCOUNTER 2019-03-03 14:55 | Observation (INO) ==
[2019-03-03] MEDS ORDERED: 0.9 % Sodium Chloride 500 ML IVC ONE (15:22)
[2019-03-03 15:45] LABS: Prothrombin Time 11.8 Seconds (9.4-12.1)
[2019-03-03 15:48] LABS: Activated Partial Thrombo Time 26.4 Seconds (26.0-36.0)
[2019-03-03 16:04] LABS: BUN/Creatinine Ratio 33 (6-26); Blood Urea Nitrogen 26 mg/dL (8-23); Calcium 9.3 mg/dL (8.6-10.3); Carbon Dioxide 33 mEq/L (23-29); Chloride 99 mEq/L (98-107); Glucose 182 mg/dL (70-105); Osmolality,Calculated 307 (280-300); Potassium 4.5 mEq/L (3.5-5.1); Sodium 144 mEq/L (136-145); eGFR For African Americans > 60 (> 60); eGFR For Non-African Americans > 60 (> 60)
[2019-03-03 16:07] LABS: Troponin I 0.04 ng/mL (< 0.04)
[2019-03-03] MEDS ORDERED: cefTRIAXone 1,000 MG in Water for inj. (sterile) 10 ML IVP ONE (16:15)
[2019-03-03] MEDS ORDERED: Azithromycin 500 MG in 0.9 % Sodium Chloride 250 ML IVPB ONE (16:15)
[2019-03-03 17:01] LABS: Basophils % 0.2 %; Eosinophils # 0.1 K/mcL (0.0-0.6); Eosinophils % 0.9 %; Hematocrit 36.2 % (35.3-44.9); Hemoglobin 11.7 g/dL (11.5-15.4); Immature Granulocytes % 0.4 % (0-4); Lymphocytes # 0.4 K/mcL (0.6-4.6); Lymphocytes % 4.9 %; Mean Corpuscular HGB Conc 32.3 g/dL (31.6-35.5); Mean Corpuscular Hemoglobin 31.5 pg (28.0-33.3); Mean Corpuscular Volume 97.6 fL (83.0-100.0); Mean Platelet Volume 11.1 fL (9.4-12.4); Monocytes # 0.6 K/mcL (0.0-1.3); Monocytes % 7.5 %; Platelet Count 167 K/mcL (140-400); Red Blood Count 3.71 M/mcL (3.82-4.97); Red Cell Distribution Width 12.5 % (11.5-14.5); Segmented Neutrophils % 86.1 %; White Blood Count 8.1 K/mcL (4.3-11.1)
[2019-03-03] MEDS ORDERED: Ondansetron 4 MG/2 ML VIAL IVP PRN (17:15)
[2019-03-03] MEDS ORDERED: Naloxone 0.4 MG/ML INJ IVP PRN (17:15)
[2019-03-03] MEDS ORDERED: *HR* Metoprolol 5 MG/5 ML VIAL IVP PRN (17:29)
[2019-03-03] MEDS ORDERED: Dextrose Gel 15 GM/37.5 ML TUBE PO PRN ×2 (17:30)
[2019-03-03] MEDS ORDERED: D5% in Water 1,000 ML IVC PRN (17:30)
[2019-03-03] MEDS ORDERED: *HR* Dextrose 50 % in Water (Syg) 50 ML SYRINGE IVP PRN (17:30)
[2019-03-03] MEDS ORDERED: Ipratropium/Albuterol Neb 3 ML IH PRN (17:31)
[2019-03-03] MEDS: *HR* Heparin 5,000 UNIT/ML VIAL SQ SCH ×2 (19:30→20:41)
[2019-03-03] MEDS: Insulin LISPRO 300 UNITS/3 ML VIAL SQ SCH (20:24)
[2019-03-03] MEDS: 0.9 % Sodium Chloride 1,000 ML IVC SCH (20:31)
[2019-03-03] MEDS: Budesonide/Formoterol 160/4.5 1 PUFF INH IH SCH (21:45)
[2019-03-04 03:12] LABS: Basophils % 0.4 %; Eosinophils # 0.2 K/mcL (0.0-0.6); Eosinophils % 2.8 %; Hemoglobin 10.1 g/dL (11.5-15.4); Immature Granulocytes % 0.4 % (0-4); Lymphocytes # 0.7 K/mcL (0.6-4.6); Lymphocytes % 13.2 %; Mean Corpuscular HGB Conc 30.6 g/dL (31.6-35.5); Mean Corpuscular Hemoglobin 31.6 pg (28.0-33.3); Mean Corpuscular Volume 103.1 fL (83.0-100.0); Mean Platelet Volume 11.5 fL (9.4-12.4); Monocytes # 0.4 K/mcL (0.0-1.3); Monocytes % 7.7 %; Neutrophils # 4.1 K/mcL (1.6-8.9); Platelet Count 148 K/mcL (140-400); Red Cell Distribution Width 12.5 % (11.5-14.5); Segmented Neutrophils % 75.5 %; White Blood Count 5.4 K/mcL (4.3-11.1)
[2019-03-04 03:31] LABS: BUN/Creatinine Ratio 35 (6-26); Blood Urea Nitrogen 27 mg/dL (8-23); Carbon Dioxide 35 mEq/L (23-29); Chloride 105 mEq/L (98-107); Glucose 74 mg/dL (70-105); Osmolality,Calculated 302 (280-300); Potassium 3.9 mEq/L (3.5-5.1); Sodium 144 mEq/L (136-145); eGFR For African Americans > 60 (> 60); eGFR For Non-African Americans > 60 (> 60)
[2019-03-04] MEDS: *HR* Heparin 5,000 UNIT/ML VIAL SQ SCH ×3 (05:07→20:20)
[2019-03-04] MEDS: Budesonide/Formoterol 160/4.5 1 PUFF INH IH SCH ×2 (07:17→22:28)
[2019-03-04] MEDS: Insulin LISPRO 300 UNITS/3 ML VIAL SQ SCH ×3 (09:45→16:58)
[2019-03-04] MEDS: Metoprolol XL (24 HR) Succ 50 MG TAB.ER.24H PO SCH (10:56)
[2019-03-04] MEDS: Lisinopril 20 MG TABLET PO SCH (10:56)
[2019-03-04] MEDS: *HR* Amiodarone 200 MG TABLET PO SCH (10:57)
[2019-03-04] MEDS: Furosemide 40 MG TABLET PO SCH ×2 (10:57→17:42)
[2019-03-04] MEDS: 0.9 % Sodium Chloride 1,000 ML IVC SCH (14:10)
[2019-03-04] MEDS ORDERED: cefTRIAXone 1,000 MG in Water for inj. (sterile) 10 ML IVP SCH (17:00)
[2019-03-04] MEDS ORDERED: Azithromycin 500 MG in 0.9 % Sodium Chloride 250 ML IVPB SCH (17:00)
[2019-03-05 04:24] LABS: Basophils % 0.2 %; Eosinophils # 0.2 K/mcL (0.0-0.6); Eosinophils % 3.3 %; Hematocrit 31.8 % (35.3-44.9); Immature Granulocytes % 0.4 % (0-4); Lymphocytes # 0.8 K/mcL (0.6-4.6); Lymphocytes % 15.1 %; Mean Corpuscular HGB Conc 31.4 g/dL (31.6-35.5); Mean Corpuscular Hemoglobin 31.9 pg (28.0-33.3); Mean Corpuscular Volume 101.6 fL (83.0-100.0); Mean Platelet Volume 11.4 fL (9.4-12.4); Monocytes # 0.4 K/mcL (0.0-1.3); Platelet Count 138 K/mcL (140-400); Red Blood Count 3.13 M/mcL (3.82-4.97); Red Cell Distribution Width 12.4 % (11.5-14.5); White Blood Count 5.4 K/mcL (4.3-11.1)
[2019-03-05 04:44] LABS: BUN/Creatinine Ratio 24 (6-26); Blood Urea Nitrogen 19 mg/dL (8-23); Carbon Dioxide 34 mEq/L (23-29); Chloride 104 mEq/L (98-107); Glucose 92 mg/dL (70-105); Osmolality,Calculated 292 (280-300); Potassium 4.1 mEq/L (3.5-5.1); Sodium 140 mEq/L (136-145); eGFR For African Americans > 60 (> 60); eGFR For Non-African Americans > 60 (> 60)
[2019-03-05] MEDS: *HR* Heparin 5,000 UNIT/ML VIAL SQ SCH (05:37)
[2019-03-05] MEDS: Budesonide/Formoterol 160/4.5 1 PUFF INH IH SCH (07:47)
[2019-03-05 07:54] VITALS: BP 146/62
[2019-03-05] MEDS: Insulin LISPRO 300 UNITS/3 ML VIAL SQ SCH (09:40)
[2019-03-05] MEDS: Metoprolol XL (24 HR) Succ 50 MG TAB.ER.24H PO SCH (09:44)
[2019-03-05] MEDS: Furosemide 40 MG TABLET PO SCH (09:44)
[2019-03-05] MEDS: *HR* Amiodarone 200 MG TABLET PO SCH (09:44)
[2019-03-05] MEDS: Lisinopril 20 MG TABLET PO SCH (09:45)
== END 2019-03-05 11:08 | disposition home or self-care (01) ==
LOC: EMEROOARM 14:55 → 3ANU 14:55 → SUATTDRO 20:05 → 3ANU 20:44
PROVIDERS: ADMIT Family Medicine; ATTEND Family Medicine

== ENCOUNTER 2019-05-08 13:53 | Inpatient (IN) ==
[2019-05-08] MEDS ORDERED: 0.9 % Sodium Chloride 1,000 ML IVC ONE (14:55)
[2019-05-08] MEDS ORDERED: Morphine Sulfate 2 MG/ML SYRINGE IVP ONE (14:55)
[2019-05-08 15:39] LABS: Prothrombin Time 11.6 Seconds (9.4-12.1)
[2019-05-08 15:42] LABS: Activated Partial Thrombo Time 29.8 Seconds (26.0-36.0)
[2019-05-08 15:49] LABS: Basophils % 0.2 %; Eosinophils % 0.1 %; Hemoglobin 11.9 g/dL (11.5-15.4); Immature Granulocytes % 0.3 % (0-4); Lymphocytes % 11.1 %; Mean Corpuscular HGB Conc 31.3 g/dL (31.6-35.5); Mean Corpuscular Hemoglobin 30.1 pg (28.0-33.3); Mean Corpuscular Volume 96.2 fL (83.0-100.0); Mean Platelet Volume 11.1 fL (9.4-12.4); Monocytes # 0.5 K/mcL (0.0-1.3); Monocytes % 5.3 %; Neutrophils # 7.5 K/mcL (1.6-8.9); Platelet Count 246 K/mcL (140-400); Red Blood Count 3.95 M/mcL (3.82-4.97); Red Cell Distribution Width 12.6 % (11.5-14.5); White Blood Count 9.1 K/mcL (4.3-11.1)
[2019-05-08 15:57] LABS: Alanine Aminotransferase 8 Units/L (7-52); Albumin/Globulin Ratio 1.6 (1.1-2.2); Alkaline Phosphatase 78 Units/L (34-104); Amylase 43 Units/L (29-103); Aspartate Amino Transferase 14 Units/L (13-39); BUN/Creatinine Ratio 30 (6-26); Bilirubin,Direct 0.2 mg/dL (0.0-0.2); Bilirubin,Indirect 0.4 mg/dL (0.0-1.0); Bilirubin,Total 0.6 mg/dL (0.3-1.0); Blood Urea Nitrogen 29 mg/dL (8-23); Calcium 9.6 mg/dL (8.6-10.3); Carbon Dioxide 32 mEq/L (23-29); Chloride 98 mEq/L (98-107); Globulin 2.5 g/dL (2.4-3.5); Glucose 122 mg/dL (70-105); Lipase 24 Units/L (11-82); Osmolality,Calculated 293 (280-300); Potassium 4.5 mEq/L (3.5-5.1); Sodium 138 mEq/L (136-145); Total Protein 6.5 g/dL (6.4-8.9); Troponin I < 0.03 ng/mL (< 0.04); eGFR For African Americans > 60 (> 60); eGFR For Non-African Americans 56 (> 60)
[2019-05-08 16:41] LABS: Bilirubin,Urine Small (Negative); Blood,Urine Small (Negative); Clarity,Urine Turbid (Clear); Color,Urine Dark Yellow (Yellow); Glucose,Urine (UA) Normal (Normal); Ketones,Urine Negative (Negative); Leukocyte Esterase,Urine Large (Negative); Nitrite,Urine Negative (Negative); PH,Urine 6.5 pH Units (5.0-8.0); Protein,Urine 100 mg/dL (Neg-Trace); Specific Gravity,Urine 1.019 (1.010-1.025); Urobilinogen,Urine Normal (Normal)
[2019-05-08 16:45] LABS: Bacteria,Urine Few per hpf (None-Few); Hyaline Casts,Urine None Seen per lpf (None-Few); RBC,Urine 15-30 per hpf (0-3); Squamous Epithelial Cell,Urine Many per lpf (None-Few); WBC,Urine TNTC per hpf (0-3)
[2019-05-08] MEDS ORDERED: cefTRIAXone 1,000 MG in Water for inj. (sterile) 10 ML IVP ONE (17:37)
[2019-05-08] MEDS ORDERED: levoFLOXacin 500 MG/100 ML 500 MG/100 ML BAG IVPB ONE (20:06)
[2019-05-08] MEDS ORDERED: Naloxone 0.4 MG/ML INJ IVP PRN (22:42)
[2019-05-09] MEDS ORDERED: Nitroglycerin 0.4 MG TAB.SUBL SL PRN (01:47)
[2019-05-09] MEDS ORDERED: D5% in Water 1,000 ML IVC PRN (01:49)
[2019-05-09] MEDS ORDERED: *HR* Dextrose 50 % in Water (Syg) 50 ML SYRINGE IVP PRN (01:49)
[2019-05-09] MEDS ORDERED: Dextrose Gel 15 GM/37.5 ML TUBE PO PRN ×2 (01:49)
[2019-05-09] MEDS: *HR* OxyCODONE/APAP 10/325 TABLET PO PRN (03:53)
[2019-05-09 04:17] LABS: Basophils % 0.4 %; Eosinophils # 0.1 K/mcL (0.0-0.6); Eosinophils % 1.6 %; Hematocrit 36.4 % (35.3-44.9); Hemoglobin 11.4 g/dL (11.5-15.4); Immature Granulocytes % 0.7 % (0-4); Lymphocytes # 1.3 K/mcL (0.6-4.6); Lymphocytes % 15.3 %; Mean Corpuscular HGB Conc 31.3 g/dL (31.6-35.5); Mean Corpuscular Hemoglobin 31.1 pg (28.0-33.3); Mean Corpuscular Volume 99.5 fL (83.0-100.0); Mean Platelet Volume 10.7 fL (9.4-12.4); Monocytes # 0.5 K/mcL (0.0-1.3); Monocytes % 6.4 %; Neutrophils # 6.3 K/mcL (1.6-8.9); Platelet Count 210 K/mcL (140-400); Red Blood Count 3.66 M/mcL (3.82-4.97); Red Cell Distribution Width 12.6 % (11.5-14.5); Segmented Neutrophils % 75.6 %; White Blood Count 8.3 K/mcL (4.3-11.1)
[2019-05-09 04:36] LABS: BUN/Creatinine Ratio 29 (6-26); Blood Urea Nitrogen 29 mg/dL (8-23); Calcium 8.8 mg/dL (8.6-10.3); Carbon Dioxide 33 mEq/L (23-29); Chloride 101 mEq/L (98-107); Glucose 115 mg/dL (70-105); Osmolality,Calculated 291 (280-300); Potassium 3.8 mEq/L (3.5-5.1); Sodium 137 mEq/L (136-145); eGFR For African Americans > 60 (> 60); eGFR For Non-African Americans 53 (> 60)
[2019-05-09] MEDS: Budesonide/Formoterol 160/4.5 1 PUFF INH IH SCH ×2 (07:39→19:56)
[2019-05-09] MEDS: Insulin LISPRO 300 UNITS/3 ML VIAL SQ SCH ×3 (08:00→17:25)
[2019-05-09] MEDS: Loratadine 10 MG TABLET PO SCH (08:42)
[2019-05-09] MEDS: Furosemide 40 MG TABLET PO SCH ×2 (08:43→22:16)
[2019-05-09] MEDS: Gabapentin 300 MG CAPSULE PO SCH ×3 (08:43→22:16)
[2019-05-09] MEDS ORDERED: lisinopriL 20 MG TABLET PO SCH (09:00)
[2019-05-09] MEDS ORDERED: Metoprolol XL (24 HR) Succ 50 MG TAB.ER.24H PO SCH (09:00)
[2019-05-09] MEDS ORDERED: Isosorbide MONOnitrate (24 HR) 30 MG TAB.ER.24H PO SCH (09:00)
[2019-05-09] MEDS ORDERED: DilTIAZem CD (24hr) 180 MG CAP.ER.24H PO SCH (09:00)
[2019-05-09] MEDS ORDERED: predniSONE 20 MG TABLET PO SCH (09:00)
[2019-05-09] MEDS: Cefepime HCl 2,000 MG in Water for inj. (sterile) 20 ML IVP SCH (10:26)
[2019-05-09] MEDS: Metoclopramide 10 MG/10 ML UD.LIQ PO SCH ×2 (17:25→22:16)
[2019-05-09] MEDS: *HR* Heparin 5,000 UNIT/ML VIAL SQ SCH (19:40)
[2019-05-09] MEDS: Sucralfate 1 GM TABLET PO SCH (22:16)
[2019-05-09] MEDS: Nystatin Cream 15 GM TUBE TP SCH (22:17)
[2019-05-10] MEDS: *HR* Heparin 5,000 UNIT/ML VIAL SQ SCH ×2 (05:43→16:28)
[2019-05-10 05:54] LABS: Basophils % 0.1 %; Hematocrit 34.1 % (35.3-44.9); Hemoglobin 10.4 g/dL (11.5-15.4); Immature Granulocytes % 0.5 % (0-4); Lymphocytes # 0.7 K/mcL (0.6-4.6); Lymphocytes % 6.2 %; Mean Corpuscular HGB Conc 30.5 g/dL (31.6-35.5); Mean Corpuscular Hemoglobin 30.1 pg (28.0-33.3); Mean Corpuscular Volume 98.8 fL (83.0-100.0); Mean Platelet Volume 11.4 fL (9.4-12.4); Monocytes # 0.5 K/mcL (0.0-1.3); Monocytes % 4.5 %; Neutrophils # 9.9 K/mcL (1.6-8.9); Platelet Count 201 K/mcL (140-400); Red Blood Count 3.45 M/mcL (3.82-4.97); Red Cell Distribution Width 12.9 % (11.5-14.5); Segmented Neutrophils % 88.7 %; White Blood Count 11.2 K/mcL (4.3-11.1)
[2019-05-10 06:11] LABS: Calcium 8.6 mg/dL (8.6-10.3); Potassium 4.7 mEq/L (3.5-5.1)
[2019-05-10] MEDS: Budesonide/Formoterol 160/4.5 1 PUFF INH IH SCH ×2 (07:32→22:13)
[2019-05-10] MEDS: Sucralfate 1 GM TABLET PO SCH ×2 (08:33→20:24)
[2019-05-10] MEDS: Loratadine 10 MG TABLET PO SCH (08:33)
[2019-05-10] MEDS: Gabapentin 300 MG CAPSULE PO SCH ×2 (08:33→20:24)
[2019-05-10] MEDS: Metoclopramide 10 MG/10 ML UD.LIQ PO SCH ×4 (08:33→20:23)
[2019-05-10] MEDS: 0.9 % Sodium Chloride 1,000 ML IVC SCH ×2 (08:40→19:57)
[2019-05-10] MEDS: Insulin LISPRO 300 UNITS/3 ML VIAL SQ SCH ×3 (08:43→16:47)
[2019-05-10] MEDS ORDERED: Isosorbide MONOnitrate (24 HR) 60 MG TAB.ER.24H PO SCH (09:00)
[2019-05-10] MEDS ORDERED: *HR* Amiodarone 200 MG TABLET PO SCH (09:00)
[2019-05-10] MEDS: Nystatin Cream 15 GM TUBE TP SCH ×2 (10:40→21:23)
[2019-05-10] MEDS: Cefepime HCl 2,000 MG in Water for inj. (sterile) 20 ML IVP SCH (10:40)
[2019-05-10] MEDS: *HR* OxyCODONE/APAP 10/325 TABLET PO PRN (16:43)
[2019-05-11 04:10] LABS: Basophils % 0.2 %; Eosinophils % 0.4 %; Hemoglobin 9.9 g/dL (11.5-15.4); Immature Granulocytes % 0.6 % (0-4); Lymphocytes # 0.6 K/mcL (0.6-4.6); Mean Corpuscular Hemoglobin 30.7 pg (28.0-33.3); Mean Corpuscular Volume 102.5 fL (83.0-100.0); Mean Platelet Volume 11.4 fL (9.4-12.4); Monocytes # 0.6 K/mcL (0.0-1.3); Monocytes % 5.2 %; Neutrophils # 9.9 K/mcL (1.6-8.9); Platelet Count 218 K/mcL (140-400); Red Blood Count 3.22 M/mcL (3.82-4.97); Red Cell Distribution Width 13.2 % (11.5-14.5); Segmented Neutrophils % 88.6 %; White Blood Count 11.1 K/mcL (4.3-11.1)
[2019-05-11 04:27] LABS: Calcium 7.8 mg/dL (8.6-10.3); Potassium 4.4 mEq/L (3.5-5.1)
[2019-05-11] MEDS: *HR* Heparin 5,000 UNIT/ML VIAL SQ SCH ×2 (06:50→17:10)
[2019-05-11] MEDS: Metoclopramide 10 MG/10 ML UD.LIQ PO SCH ×4 (06:50→21:18)
[2019-05-11] MEDS: Loratadine 10 MG TABLET PO SCH (06:56)
[2019-05-11] MEDS: Sucralfate 1 GM TABLET PO SCH ×2 (06:56→21:17)
[2019-05-11] MEDS: Nystatin Cream 15 GM TUBE TP SCH ×2 (07:01→21:18)
[2019-05-11] MEDS: *HR* OxyCODONE/APAP 10/325 TABLET PO PRN (07:06)
[2019-05-11] MEDS: Insulin LISPRO 300 UNITS/3 ML VIAL SQ SCH ×3 (07:20→17:09)
[2019-05-11] MEDS: Budesonide/Formoterol 160/4.5 1 PUFF INH IH SCH ×2 (07:23→20:02)
[2019-05-11] MEDS: Cefepime HCl 2,000 MG in Water for inj. (sterile) 20 ML IVP SCH (17:08)
[2019-05-11] MEDS: Gabapentin 300 MG CAPSULE PO SCH (21:18)
[2019-05-11] MEDS: 0.9 % Sodium Chloride 1,000 ML IVC SCH (21:24)
[2019-05-11] MEDS: Levalbuterol Neb 1.25 MG/3 ML IH SCH ×2 (21:53→23:47)
[2019-05-11 22:12] LABS: ABG Base Excess 1 mEq/L (-2 to 3); ABG HCO3 28 mEq/L (21-27); ABG Oxygen Saturation 97 % (95-98); ABG PCO2 56 mmHg (35-45); ABG PH 7.31 pH Units (7.32-7.45); ABG PO2 104 mmHg (85-104); ABG TCO2 30 mEq/L (20-26)
[2019-05-11] MEDS ORDERED: *HR* Metoprolol 5 MG/5 ML VIAL IVP ONE (22:27)
[2019-05-12] MEDS ORDERED: DilTIAZem 50 MG in 0.9 % Sodium Chloride 40 ML IVC SCH (01:45)
[2019-05-12] MEDS ORDERED: 0.9 % Sodium Chloride 1,000 ML IVC SCH ×2 (02:00→11:45)
[2019-05-12] MEDS: Levalbuterol Neb 1.25 MG/3 ML IH SCH ×6 (04:03→23:48)
[2019-05-12 04:55] LABS: Eosinophils # 0.1 K/mcL (0.0-0.6); Eosinophils % 0.8 %; Hematocrit 31.9 % (35.3-44.9); Hemoglobin 9.7 g/dL (11.5-15.4); Immature Granulocytes % 0.3 % (0-4); Lymphocytes # 0.7 K/mcL (0.6-4.6); Lymphocytes % 11.3 %; Mean Corpuscular HGB Conc 30.4 g/dL (31.6-35.5); Mean Corpuscular Hemoglobin 30.5 pg (28.0-33.3); Mean Corpuscular Volume 100.3 fL (83.0-100.0); Mean Platelet Volume 11.8 fL (9.4-12.4); Monocytes # 0.4 K/mcL (0.0-1.3); Monocytes % 6.5 %; Neutrophils # 5.3 K/mcL (1.6-8.9); Platelet Count 167 K/mcL (140-400); Red Blood Count 3.18 M/mcL (3.82-4.97); Red Cell Distribution Width 13.2 % (11.5-14.5); Segmented Neutrophils % 81.1 %; White Blood Count 6.6 K/mcL (4.3-11.1)
[2019-05-12 05:14] LABS: Calcium 8.2 mg/dL (8.6-10.3)
[2019-05-12] MEDS: *HR* Heparin 5,000 UNIT/ML VIAL SQ SCH ×2 (05:45→16:56)
[2019-05-12] MEDS: Sucralfate 1 GM TABLET PO SCH ×2 (07:14→19:37)
[2019-05-12] MEDS: Metoclopramide 10 MG/10 ML UD.LIQ PO SCH ×4 (07:14→19:37)
[2019-05-12] MEDS: Insulin LISPRO 300 UNITS/3 ML VIAL SQ SCH ×3 (07:14→17:05)
[2019-05-12] MEDS: Loratadine 10 MG TABLET PO SCH (07:14)
[2019-05-12] MEDS: Nystatin Cream 15 GM TUBE TP SCH ×2 (07:14→19:38)
[2019-05-12] MEDS: Budesonide/Formoterol 160/4.5 1 PUFF INH IH SCH ×2 (08:13→19:49)
[2019-05-12] MEDS: *HR* Amiodarone 200 MG TABLET PO SCH (08:40)
[2019-05-12] MEDS: Cefepime HCl 2,000 MG in Water for inj. (sterile) 20 ML IVP SCH (11:22)
[2019-05-12] MEDS: MetroNIDAZOLE 500 MG/100 ML 500 MG/100 ML BAG IVPB SCH ×3 (11:23→23:24)
[2019-05-12] MEDS: Gabapentin 300 MG CAPSULE PO SCH (19:37)
[2019-05-13 01:04] LABS: VBG HCO3 25 mEq/L (21-27); VBG PCO2 54 mmHg (41-51); VBG PH 7.28 pH Units (7.32-7.42); VBG PO2 70 mmHg (25-50)
[2019-05-13 01:06] LABS: Basophils % 0.2 %; Eosinophils # 0.1 K/mcL (0.0-0.6); Hematocrit 29.5 % (35.3-44.9); Hemoglobin 9.3 g/dL (11.5-15.4); Immature Granulocytes % 0.5 % (0-4); Lymphocytes # 0.9 K/mcL (0.6-4.6); Mean Corpuscular HGB Conc 31.5 g/dL (31.6-35.5); Mean Corpuscular Hemoglobin 31.6 pg (28.0-33.3); Mean Corpuscular Volume 100.3 fL (83.0-100.0); Mean Platelet Volume 11.1 fL (9.4-12.4); Monocytes # 0.4 K/mcL (0.0-1.3); Monocytes % 6.2 %; Neutrophils # 4.5 K/mcL (1.6-8.9); Platelet Count 153 K/mcL (140-400); Red Blood Count 2.94 M/mcL (3.82-4.97); Red Cell Distribution Width 13.2 % (11.5-14.5); Segmented Neutrophils % 77.1 %; White Blood Count 5.8 K/mcL (4.3-11.1)
[2019-05-13 01:24] LABS: BUN/Creatinine Ratio 28 (6-26); Blood Urea Nitrogen 23 mg/dL (8-23); Calcium 8.1 mg/dL (8.6-10.3); Carbon Dioxide 26 mEq/L (23-29); Chloride 111 mEq/L (98-107); Glucose 134 mg/dL (70-105); Osmolality,Calculated 294 (280-300); Sodium 139 mEq/L (136-145); eGFR For African Americans > 60 (> 60); eGFR For Non-African Americans > 60 (> 60)
[2019-05-13] MEDS: Levalbuterol Neb 1.25 MG/3 ML IH SCH ×6 (03:12→23:56)
[2019-05-13] MEDS: *HR* Heparin 5,000 UNIT/ML VIAL SQ SCH ×2 (05:17→17:37)
[2019-05-13] MEDS: *HR* OxyCODONE/APAP 10/325 TABLET PO PRN ×2 (05:19→21:05)
[2019-05-13] MEDS ORDERED: Furosemide 20 MG/2 ML VIAL IVP ONE (07:25)
[2019-05-13] MEDS: Budesonide/Formoterol 160/4.5 1 PUFF INH IH SCH ×2 (07:54→20:07)
[2019-05-13] MEDS: Insulin LISPRO 300 UNITS/3 ML VIAL SQ SCH ×3 (08:11→16:37)
[2019-05-13] MEDS: Metoclopramide 10 MG/10 ML UD.LIQ PO SCH ×4 (08:19→21:04)
[2019-05-13] MEDS: Sucralfate 1 GM TABLET PO SCH ×2 (08:20→21:04)
[2019-05-13] MEDS: *HR* Amiodarone 200 MG TABLET PO SCH (08:20)
[2019-05-13] MEDS: Loratadine 10 MG TABLET PO SCH (08:20)
[2019-05-13] MEDS ORDERED: DilTIAZem 50 MG in 0.9 % Sodium Chloride 40 ML IVC SCH (08:45)
[2019-05-13] MEDS: MetroNIDAZOLE 500 MG/100 ML 500 MG/100 ML BAG IVPB SCH ×3 (08:51→23:12)
[2019-05-13] MEDS: Nystatin Cream 15 GM TUBE TP SCH ×2 (08:54→21:07)
[2019-05-13] MEDS ORDERED: Metoprolol XL (24 HR) Succ 25 MG TAB.ER.24H PO SCH (09:00)
[2019-05-13] MEDS: Cefepime HCl 2,000 MG in Water for inj. (sterile) 20 ML IVP SCH (11:03)
[2019-05-13 13:18] LABS: Adenovirus Not Detected (Not Detect); Bordetella Pertussis Not Detected (Not Detect); Chlamydophila pneumoniae Not Detected (Not Detect); Coronavirus 229E Not Detected (Not Detect); Coronavirus HKU1 Not Detected (Not Detect); Coronavirus NL63 Not Detected (Not Detect); Coronavirus OC43 Not Detected (Not Detect); Human Metapneumovirus Not Detected (Not Detect); Human Rhinovirus/Enterovirus Not Detected (Not Detect); Influenza A Subtype 2009 H1 Not Detected (Not Detect); Influenza B Not Detected (Not Detect); Mycoplasma pneumoniae Not Detected (Not Detect); Parainfluenza Virus 1 Not Detected (Not Detect); Parainfluenza Virus 2 Not Detected (Not Detect); Parainfluenza Virus 3 Not Detected (Not Detect); Parainfluenza Virus 4 Not Detected (Not Detect); Respiratory Syncytial Virus Not Detected (Not Detect)
[2019-05-13] MEDS: Gabapentin 300 MG CAPSULE PO SCH (21:04)
[2019-05-14] MEDS: Levalbuterol Neb 1.25 MG/3 ML IH SCH ×5 (03:40→20:05)
[2019-05-14] MEDS: *HR* Heparin 5,000 UNIT/ML VIAL SQ SCH ×2 (06:21→16:45)
[2019-05-14] MEDS: Budesonide/Formoterol 160/4.5 1 PUFF INH IH SCH ×2 (07:17→20:05)
[2019-05-14 08:43] LABS: VBG HCO3 31 mEq/L (21-27); VBG PCO2 73 mmHg (41-51); VBG PH 7.24 pH Units (7.32-7.42); VBG PO2 95 mmHg (25-50)
[2019-05-14 08:49] LABS: Basophils % 0.4 %; Eosinophils # 0.1 K/mcL (0.0-0.6); Eosinophils % 1.4 %; Hematocrit 33.1 % (35.3-44.9); Hemoglobin 10.2 g/dL (11.5-15.4); Immature Granulocytes % 1.1 % (0-4); Lymphocytes # 1.2 K/mcL (0.6-4.6); Lymphocytes % 21.7 %; Mean Corpuscular HGB Conc 30.8 g/dL (31.6-35.5); Mean Corpuscular Hemoglobin 30.9 pg (28.0-33.3); Mean Corpuscular Volume 100.3 fL (83.0-100.0); Mean Platelet Volume 11.5 fL (9.4-12.4); Monocytes # 0.4 K/mcL (0.0-1.3); Monocytes % 6.9 %; Neutrophils # 3.9 K/mcL (1.6-8.9); Platelet Count 180 K/mcL (140-400); Red Cell Distribution Width 13.3 % (11.5-14.5); Segmented Neutrophils % 68.5 %; White Blood Count 5.6 K/mcL (4.3-11.1)
[2019-05-14 09:09] LABS: BUN/Creatinine Ratio 26 (6-26); Blood Urea Nitrogen 18 mg/dL (8-23); Calcium 8.6 mg/dL (8.6-10.3); Carbon Dioxide 30 mEq/L (23-29); Chloride 108 mEq/L (98-107); Glucose 97 mg/dL (70-105); Osmolality,Calculated 294 (280-300); Potassium 4.1 mEq/L (3.5-5.1); Sodium 141 mEq/L (136-145); eGFR For African Americans > 60 (> 60); eGFR For Non-African Americans > 60 (> 60)
[2019-05-14] MEDS: Insulin LISPRO 300 UNITS/3 ML VIAL SQ SCH ×3 (09:19→16:43)
[2019-05-14] MEDS: Cefepime HCl 2,000 MG in Water for inj. (sterile) 20 ML IVP SCH ×2 (09:20→20:41)
[2019-05-14] MEDS: Metoclopramide 10 MG/10 ML UD.LIQ PO SCH ×4 (09:23→20:40)
[2019-05-14] MEDS: *HR* Amiodarone 200 MG TABLET PO SCH (09:23)
[2019-05-14] MEDS: Metoprolol XL (24 HR) Succ 25 MG TAB.ER.24H PO SCH (09:23)
[2019-05-14] MEDS: MetroNIDAZOLE 500 MG/100 ML 500 MG/100 ML BAG IVPB SCH ×3 (09:24→23:29)
[2019-05-14] MEDS: Furosemide 40 MG/4 ML VIAL IVP SCH (09:24)
[2019-05-14] MEDS: Loratadine 10 MG TABLET PO SCH (09:24)
[2019-05-14] MEDS: Sucralfate 1 GM TABLET PO SCH ×2 (09:24→20:41)
[2019-05-14] MEDS: Nystatin Cream 15 GM TUBE TP SCH ×2 (09:25→21:58)
[2019-05-14] MEDS ORDERED: *HR* Metoprolol 5 MG/5 ML VIAL IVP PRN (11:02)
[2019-05-14] MEDS: Gabapentin 300 MG CAPSULE PO SCH (20:41)
[2019-05-15] MEDS: Levalbuterol Neb 1.25 MG/3 ML IH SCH ×4 (00:18→11:25)
[2019-05-15 04:30] LABS: VBG HCO3 30 mEq/L (21-27); VBG PCO2 62 mmHg (41-51); VBG PH 7.29 pH Units (7.32-7.42); VBG PO2 60 mmHg (25-50)
[2019-05-15 04:33] LABS: Basophils % 0.4 %; Eosinophils # 0.1 K/mcL (0.0-0.6); Hematocrit 32.1 % (35.3-44.9); Hemoglobin 9.8 g/dL (11.5-15.4); Immature Granulocytes % 1.5 % (0-4); Lymphocytes % 17.6 %; Mean Corpuscular HGB Conc 30.5 g/dL (31.6-35.5); Mean Corpuscular Hemoglobin 30.2 pg (28.0-33.3); Mean Corpuscular Volume 98.8 fL (83.0-100.0); Mean Platelet Volume 11.4 fL (9.4-12.4); Monocytes # 0.4 K/mcL (0.0-1.3); Neutrophils # 3.8 K/mcL (1.6-8.9); Platelet Count 187 K/mcL (140-400); Red Blood Count 3.25 M/mcL (3.82-4.97); Red Cell Distribution Width 13.4 % (11.5-14.5); Segmented Neutrophils % 70.5 %; White Blood Count 5.4 K/mcL (4.3-11.1)
[2019-05-15 04:50] LABS: BUN/Creatinine Ratio 30 (6-26); Blood Urea Nitrogen 22 mg/dL (8-23); Calcium 8.3 mg/dL (8.6-10.3); Carbon Dioxide 30 mEq/L (23-29); Chloride 107 mEq/L (98-107); Glucose 135 mg/dL (70-105); Magnesium 1.3 mg/dL (1.6-2.6); Osmolality,Calculated 295 (280-300); Potassium 4.1 mEq/L (3.5-5.1); Sodium 140 mEq/L (136-145); eGFR For African Americans > 60 (> 60); eGFR For Non-African Americans > 60 (> 60)
[2019-05-15] MEDS: *HR* Heparin 5,000 UNIT/ML VIAL SQ SCH ×2 (05:26→17:18)
[2019-05-15] MEDS: *HR* OxyCODONE/APAP 10/325 TABLET PO PRN (05:26)
[2019-05-15] MEDS: Budesonide/Formoterol 160/4.5 1 PUFF INH IH SCH ×2 (07:11→20:02)
[2019-05-15] MEDS: Insulin LISPRO 300 UNITS/3 ML VIAL SQ SCH ×3 (08:14→16:32)
[2019-05-15] MEDS: Furosemide 40 MG/4 ML VIAL IVP SCH (08:24)
[2019-05-15] MEDS: Metoclopramide 10 MG/10 ML UD.LIQ PO SCH ×4 (08:24→20:32)
[2019-05-15] MEDS: *HR* Amiodarone 200 MG TABLET PO SCH (08:25)
[2019-05-15] MEDS: Loratadine 10 MG TABLET PO SCH (08:25)
[2019-05-15] MEDS: Sucralfate 1 GM TABLET PO SCH ×2 (08:25→20:31)
[2019-05-15] MEDS: Cefepime HCl 2,000 MG in Water for inj. (sterile) 20 ML IVP SCH ×2 (08:26→20:31)
[2019-05-15] MEDS: Metoprolol XL (24 HR) Succ 25 MG TAB.ER.24H PO SCH (08:26)
[2019-05-15] MEDS: MetroNIDAZOLE 500 MG/100 ML 500 MG/100 ML BAG IVPB SCH ×3 (08:27→23:25)
[2019-05-15] MEDS: Nystatin Cream 15 GM TUBE TP SCH ×2 (08:27→20:32)
[2019-05-15] MEDS ORDERED: Levalbuterol Neb 1.25 MG/3 ML IH PRN (14:27)
[2019-05-15] MEDS: Gabapentin 300 MG CAPSULE PO SCH (20:32)
[2019-05-16 04:15] LABS: ABG Base Excess 9 mEq/L (-2 to 3); ABG HCO3 36 mEq/L (21-27); ABG Oxygen Saturation 97 % (95-98); ABG PCO2 62 mmHg (35-45); ABG PH 7.37 pH Units (7.32-7.45); ABG PO2 95 mmHg (85-104); ABG TCO2 38 mEq/L (20-26)
[2019-05-16 05:36] LABS: BUN/Creatinine Ratio 29 (6-26); Blood Urea Nitrogen 18 mg/dL (8-23); Calcium 8.8 mg/dL (8.6-10.3); Carbon Dioxide 34 mEq/L (23-29); Chloride 105 mEq/L (98-107); Glucose 88 mg/dL (70-105); Osmolality,Calculated 289 (280-300); Potassium 4.3 mEq/L (3.5-5.1); Sodium 139 mEq/L (136-145); eGFR For African Americans > 60 (> 60); eGFR For Non-African Americans > 60 (> 60)
[2019-05-16] MEDS: *HR* Heparin 5,000 UNIT/ML VIAL SQ SCH (05:37)
[2019-05-16] MEDS: Insulin LISPRO 300 UNITS/3 ML VIAL SQ SCH ×3 (08:08→16:36)
[2019-05-16] MEDS: MetroNIDAZOLE 500 MG/100 ML 500 MG/100 ML BAG IVPB SCH ×3 (08:16→23:24)
[2019-05-16] MEDS: Metoclopramide 10 MG/10 ML UD.LIQ PO SCH ×4 (08:16→20:52)
[2019-05-16] MEDS: Sucralfate 1 GM TABLET PO SCH ×2 (08:17→20:52)
[2019-05-16] MEDS: *HR* Amiodarone 200 MG TABLET PO SCH (08:17)
[2019-05-16] MEDS: Metoprolol XL (24 HR) Succ 25 MG TAB.ER.24H PO SCH (08:17)
[2019-05-16] MEDS: Cefepime HCl 2,000 MG in Water for inj. (sterile) 20 ML IVP SCH ×2 (08:17→20:52)
[2019-05-16] MEDS: Loratadine 10 MG TABLET PO SCH (08:17)
[2019-05-16] MEDS: Furosemide 40 MG/4 ML VIAL IVP SCH (08:17)
[2019-05-16] MEDS: Nystatin Cream 15 GM TUBE TP SCH ×2 (08:18→20:53)
[2019-05-16] MEDS: Budesonide/Formoterol 160/4.5 1 PUFF INH IH SCH ×2 (11:35→22:05)
[2019-05-16] MEDS: lisinopriL 20 MG TABLET PO SCH (15:26)
[2019-05-16] MEDS: Gabapentin 300 MG CAPSULE PO SCH (20:52)
[2019-05-17 03:07] LABS: Basophils % 0.3 %; Eosinophils # 0.1 K/mcL (0.0-0.6); Eosinophils % 1.8 %; Hematocrit 32.5 % (35.3-44.9); Immature Granulocytes % 1.5 % (0-4); Lymphocytes # 1.1 K/mcL (0.6-4.6); Lymphocytes % 17.1 %; Mean Corpuscular HGB Conc 30.8 g/dL (31.6-35.5); Mean Corpuscular Hemoglobin 31.1 pg (28.0-33.3); Mean Corpuscular Volume 100.9 fL (83.0-100.0); Mean Platelet Volume 11.6 fL (9.4-12.4); Monocytes # 0.7 K/mcL (0.0-1.3); Monocytes % 9.9 %; Neutrophils # 4.5 K/mcL (1.6-8.9); Platelet Count 181 K/mcL (140-400); Red Blood Count 3.22 M/mcL (3.82-4.97); Red Cell Distribution Width 13.6 % (11.5-14.5); Segmented Neutrophils % 69.4 %; White Blood Count 6.6 K/mcL (4.3-11.1)
[2019-05-17 03:26] LABS: BUN/Creatinine Ratio 27 (6-26); Blood Urea Nitrogen 21 mg/dL (8-23); Calcium 8.8 mg/dL (8.6-10.3); Carbon Dioxide 34 mEq/L (23-29); Chloride 103 mEq/L (98-107); Glucose 120 mg/dL (70-105); Osmolality,Calculated 294 (280-300); Potassium 4.1 mEq/L (3.5-5.1); Sodium 140 mEq/L (136-145); eGFR For African Americans > 60 (> 60); eGFR For Non-African Americans > 60 (> 60)
[2019-05-17 05:29] LABS: ABG Base Excess 8 mEq/L (-2 to 3); ABG HCO3 35 mEq/L (21-27); ABG Oxygen Saturation 98 % (95-98); ABG PCO2 57 mmHg (35-45); ABG PH 7.39 pH Units (7.32-7.45); ABG PO2 100 mmHg (85-104); ABG TCO2 37 mEq/L (20-26)
[2019-05-17] MEDS: Budesonide/Formoterol 160/4.5 1 PUFF INH IH SCH ×2 (07:33→21:00)
[2019-05-17] MEDS: Insulin LISPRO 300 UNITS/3 ML VIAL SQ SCH ×3 (09:25→17:33)
[2019-05-17] MEDS: Loratadine 10 MG TABLET PO SCH (09:26)
[2019-05-17] MEDS: Sucralfate 1 GM TABLET PO SCH ×2 (09:27→22:35)
[2019-05-17] MEDS: lisinopriL 20 MG TABLET PO SCH (09:28)
[2019-05-17] MEDS: Metoprolol XL (24 HR) Succ 25 MG TAB.ER.24H PO SCH (09:29)
[2019-05-17] MEDS: *HR* Amiodarone 200 MG TABLET PO SCH (09:29)
[2019-05-17] MEDS: Furosemide 40 MG/4 ML VIAL IVP SCH (09:30)
[2019-05-17] MEDS: Metoclopramide 10 MG/10 ML UD.LIQ PO SCH ×4 (09:30→22:35)
[2019-05-17] MEDS: MetroNIDAZOLE 500 MG/100 ML 500 MG/100 ML BAG IVPB SCH (09:34)
[2019-05-17] MEDS: Cefepime HCl 2,000 MG in Water for inj. (sterile) 20 ML IVP SCH (09:34)
[2019-05-17] MEDS: Nystatin Cream 15 GM TUBE TP SCH ×2 (10:49→22:36)
[2019-05-17] MEDS: Amoxicillin/Clavulanate 500 MG TABLET PO SCH (17:35)
[2019-05-17] MEDS ORDERED: CLEAR EYES NATURAL TEARS 15 ML BOTTLE BOTH EYES PRN (20:00)
[2019-05-17] MEDS: Gabapentin 300 MG CAPSULE PO SCH (22:35)
[2019-05-18] MEDS: Insulin LISPRO 300 UNITS/3 ML VIAL SQ SCH ×3 (07:46→17:03)
[2019-05-18] MEDS: Metoclopramide 10 MG/10 ML UD.LIQ PO SCH ×4 (08:13→21:37)
[2019-05-18] MEDS: Metoprolol XL (24 HR) Succ 25 MG TAB.ER.24H PO SCH (08:13)
[2019-05-18] MEDS: Sucralfate 1 GM TABLET PO SCH ×2 (08:13→21:37)
[2019-05-18] MEDS: Loratadine 10 MG TABLET PO SCH (08:13)
[2019-05-18] MEDS: *HR* Amiodarone 200 MG TABLET PO SCH (08:13)
[2019-05-18] MEDS: Furosemide 40 MG TABLET PO SCH ×2 (08:14→17:04)
[2019-05-18] MEDS: lisinopriL 20 MG TABLET PO SCH (08:14)
[2019-05-18] MEDS: Amoxicillin/Clavulanate 500 MG TABLET PO SCH ×2 (08:14→17:04)
[2019-05-18] MEDS: Nystatin Cream 15 GM TUBE TP SCH ×2 (08:14→22:52)
[2019-05-18] MEDS: Budesonide/Formoterol 160/4.5 1 PUFF INH IH SCH ×2 (08:30→19:57)
[2019-05-18] MEDS: MethylPREDNISolone 40 MG/ML VIAL IVP SCH ×2 (10:12→22:53)
[2019-05-18] MEDS: Gabapentin 300 MG CAPSULE PO SCH (21:37)
[2019-05-19 06:38] VITALS: BP 166/76
[2019-05-19] MEDS: Budesonide/Formoterol 160/4.5 1 PUFF INH IH SCH (07:44)
[2019-05-19] MEDS: Metoclopramide 10 MG/10 ML UD.LIQ PO SCH (09:17)
[2019-05-19] MEDS: Furosemide 40 MG TABLET PO SCH (09:18)
[2019-05-19] MEDS: lisinopriL 20 MG TABLET PO SCH (09:19)
[2019-05-19] MEDS: Metoprolol XL (24 HR) Succ 25 MG TAB.ER.24H PO SCH (09:19)
[2019-05-19] MEDS: Loratadine 10 MG TABLET PO SCH (09:20)
[2019-05-19] MEDS: Sucralfate 1 GM TABLET PO SCH (09:20)
[2019-05-19] MEDS: *HR* Amiodarone 200 MG TABLET PO SCH (09:20)
[2019-05-19] MEDS: Nystatin Cream 15 GM TUBE TP SCH (09:22)
[2019-05-19] MEDS: Insulin LISPRO 300 UNITS/3 ML VIAL SQ SCH (09:24)
== END 2019-05-19 10:31 | disposition home or self-care (01) | DRG 463 ==
LOC: 3ANU 13:53 → EMEROOARM 13:53 → SUATTDRO 22:30 → 3ANU 23:11 → SUATTDRO 05-10 14:32
PROVIDERS: ADMIT Internal Medicine; ATTEND Internal Medicine

== ENCOUNTER 2019-09-30 11:03 | Inpatient (IN) ==
[2019-09-30] MEDS ORDERED: Acetaminophen 325 MG TABLET PO PRN (14:15)
[2019-09-30] MEDS ORDERED: Naloxone 0.4 MG/ML INJ IVP PRN (14:15)
[2019-09-30] MEDS ORDERED: Perflutren Lipid Microsphere 1.3 ML in 0.9 % Sodium Chloride 8.7 ML IVP PRN (14:15)
[2019-09-30] MEDS ORDERED: Dextrose Gel 15 GM/37.5 ML TUBE PO PRN ×2 (14:28)
[2019-09-30] MEDS ORDERED: D5% in Water 1,000 ML IVC PRN (14:28)
[2019-09-30] MEDS ORDERED: *HR* Dextrose 50 % in Water (Vial) 50 ML VIAL IVP PRN (14:28)
[2019-09-30] MEDS ORDERED: Norepinephrine 4 MG/254 ML IV.SOLN IVC SCH (14:45)
[2019-09-30] MEDS ORDERED: Vancomycin (wt based) 1,000 MG VIAL IVPB SCH (15:00)
[2019-09-30 15:28] LABS: Heparin anti-factor XA UFH 0.37 IU/mL (0.30-0.70); Prothrombin Time 11.8 Seconds (9.4-12.1)
[2019-09-30] MEDS: Piperacillin/Tazobactam 3.375 GM in 0.9 % Sodium Chloride Mini Bag 100 ML IVPB SCH (15:28)
[2019-09-30 15:30] LABS: Hematocrit 34.6 % (35.3-44.9); Hemoglobin 10.4 g/dL (11.5-15.4); Mean Corpuscular HGB Conc 30.1 g/dL (31.6-35.5); Mean Corpuscular Hemoglobin 29.6 pg (28.0-33.3); Mean Corpuscular Volume 98.6 fL (83.0-100.0); Mean Platelet Volume 10.8 fL (9.4-12.4); Platelet Count 234 K/mcL (140-400); Red Blood Count 3.51 M/mcL (3.82-4.97); Red Cell Distribution Width 14.5 % (11.5-14.5); White Blood Count 14.2 K/mcL (4.3-11.1)
[2019-09-30 15:31] LABS: Activated Partial Thrombo Time 28.5 Seconds (26.0-36.0)
[2019-09-30 15:39] LABS: Amorphous Sediment,Urine Few per hpf (None-Few); Bacteria,Urine Few per hpf (None-Few); Bilirubin,Urine Negative (Negative); Blood,Urine Small (Negative); Clarity,Urine Turbid (Clear); Color,Urine Yellow (Yellow); Glucose,Urine (UA) Normal (Normal); Hyaline Casts,Urine Few per lpf (None Seen); Ketones,Urine Negative (Negative); Leukocyte Esterase,Urine Large (Negative); Mucus,Urine Few per lpf (None-Few); Nitrite,Urine Negative (Negative); Protein,Urine 30 mg/dL (Neg-Trace); Specific Gravity,Urine 1.018 (1.010-1.025); Squamous Epithelial Cell,Urine Few per hpf (None-Few); Urobilinogen,Urine Normal (Normal); WBC,Urine 50-100 per hpf (0-3)
[2019-09-30] MEDS ORDERED: *HR* Heparin 5,000 UNIT/ML VIAL IVP ONE (15:52)
[2019-09-30] MEDS ORDERED: *HR* Heparin 5,000 UNIT/ML VIAL IVP PRN ×2 (15:52)
[2019-09-30] MEDS ORDERED: Heparin 25,000 UNIT/250 ML D5W 25,000 UNIT/250 ML IV.SOLN IVC SCH (16:00)
[2019-09-30] MEDS ORDERED: 0.9 % Sodium Chloride 1,000 ML IVC SCH (16:15)
[2019-09-30 16:49] LABS: Protein/Creatinine Ratio,Urine 0.9 mg/mg (0.00-0.20); Sodium, Urine 39.1 mEq/L
[2019-09-30] MEDS ORDERED: Ipratropium/Albuterol Neb 3 ML IH PRN (17:09)
[2019-09-30] MEDS: Insulin LISPRO 300 UNITS/3 ML VIAL SQ SCH ×2 (17:24→23:16)
[2019-10-01 04:24] LABS: Basophils % 0.1 %; Eosinophils % 0.3 %; Hematocrit 34.8 % (35.3-44.9); Hemoglobin 10.5 g/dL (11.5-15.4); Immature Granulocytes % 0.5 % (0-4); Lymphocytes # 0.7 K/mcL (0.6-4.6); Lymphocytes % 7.9 %; Mean Corpuscular HGB Conc 30.2 g/dL (31.6-35.5); Mean Corpuscular Hemoglobin 29.7 pg (28.0-33.3); Mean Corpuscular Volume 98.3 fL (83.0-100.0); Mean Platelet Volume 10.9 fL (9.4-12.4); Monocytes # 0.6 K/mcL (0.0-1.3); Monocytes % 6.7 %; Neutrophils # 7.7 K/mcL (1.6-8.9); Platelet Count 189 K/mcL (140-400); Red Blood Count 3.54 M/mcL (3.82-4.97); Red Cell Distribution Width 14.1 % (11.5-14.5); Segmented Neutrophils % 84.5 %; White Blood Count 9.1 K/mcL (4.3-11.1)
[2019-10-01 04:27] LABS: Heparin anti-factor XA UFH 0.58 IU/mL (0.30-0.70); Prothrombin Time 11.7 Seconds (9.4-12.1)
[2019-10-01 04:37] LABS: Alanine Aminotransferase 12 Units/L (7-52); Albumin 3.5 g/dL (3.5-5.7); Albumin/Globulin Ratio 1.5 (1.1-2.2); Alkaline Phosphatase 72 Units/L (34-104); Aspartate Amino Transferase 19 Units/L (13-39); BUN/Creatinine Ratio 21 (6-26); Bilirubin,Direct 0.1 mg/dL (0.0-0.2); Bilirubin,Indirect 0.3 mg/dL (0.0-1.0); Bilirubin,Total 0.4 mg/dL (0.3-1.0); Blood Urea Nitrogen 22 mg/dL (8-23); Calcium 8.2 mg/dL (8.6-10.3); Carbon Dioxide 26 mEq/L (23-29); Chloride 108 mEq/L (98-107); Globulin 2.3 g/dL (2.4-3.5); Glucose 100 mg/dL (70-105); Magnesium 1.8 mg/dL (1.6-2.6); Osmolality,Calculated 293 (280-300); Potassium 4.3 mEq/L (3.5-5.1); Sodium 140 mEq/L (136-145); Total Protein 5.8 g/dL (6.4-8.9); Triglycerides 146 mg/dL (< 150); Vancomycin,Random 5 mcg/mL; eGFR For African Americans > 60 (> 60); eGFR For Non-African Americans 50 (> 60)
[2019-10-01] MEDS: Piperacillin/Tazobactam 3.375 GM in 0.9 % Sodium Chloride Mini Bag 100 ML IVPB SCH (06:04)
[2019-10-01] MEDS: Insulin LISPRO 300 UNITS/3 ML VIAL SQ SCH ×3 (06:04→17:53)
[2019-10-01] MEDS ORDERED: *HR* OxyCODONE/APAP 10/325 TABLET PO PRN (08:23)
[2019-10-01] MEDS ORDERED: Cefdinir 300 MG CAPSULE PO SCH (09:00)
[2019-10-01] MEDS ORDERED: Apixaban 2.5 MG TABLET PO SCH (09:00)
[2019-10-01] MEDS ORDERED: cephALEXin 500 MG CAPSULE PO SCH (09:00)
[2019-10-01] MEDS ORDERED: Furosemide 40 MG TABLET PO SCH (09:00)
[2019-10-01] MEDS ORDERED: Isosorbide MONOnitrate (24 HR) 60 MG TAB.ER.24H PO SCH (09:00)
[2019-10-01] MEDS ORDERED: lisinopriL 20 MG TABLET PO SCH (09:00)
[2019-10-01] MEDS ORDERED: Metoprolol XL (24 HR) Succ 50 MG TAB.ER.24H PO SCH (09:00)
[2019-10-01] MEDS ORDERED: Gabapentin 300 MG CAPSULE PO SCH (09:00)
[2019-10-01] MEDS ORDERED: Acetaminophen 325 MG TABLET PO PRN (09:52)
[2019-10-01] MEDS ORDERED: *HR* Dextrose 50 % in Water (Vial) 50 ML VIAL IVP PRN (09:52)
[2019-10-01] MEDS ORDERED: Naloxone 0.4 MG/ML INJ IVP PRN (09:52)
[2019-10-01] MEDS ORDERED: Ipratropium/Albuterol Neb 3 ML IH PRN (09:52)
[2019-10-01] MEDS ORDERED: D5% in Water 1,000 ML IVC PRN (09:52)
[2019-10-01] MEDS ORDERED: Dextrose Gel 15 GM/37.5 ML TUBE PO PRN ×2 (09:52)
[2019-10-01] MEDS ORDERED: Aminoglycoside Consult 1 EACH MC ONE (10:46)
[2019-10-01] MEDS: *HR* OxyCODONE/APAP 10/325 TABLET PO PRN (15:43)
[2019-10-01] MEDS: Gabapentin 300 MG CAPSULE PO SCH ×2 (15:43→21:25)
[2019-10-01] MEDS: Apixaban 2.5 MG TABLET PO SCH (21:24)
[2019-10-02] MEDS: Insulin LISPRO 300 UNITS/3 ML VIAL SQ SCH ×4 (04:02→17:23)
[2019-10-02] MEDS: Gabapentin 300 MG CAPSULE PO SCH ×3 (08:45→20:59)
[2019-10-02] MEDS: lisinopriL 20 MG TABLET PO SCH (08:45)
[2019-10-02] MEDS: Cefdinir 300 MG CAPSULE PO SCH (08:45)
[2019-10-02] MEDS: Furosemide 40 MG TABLET PO SCH (08:45)
[2019-10-02] MEDS: Apixaban 2.5 MG TABLET PO SCH ×2 (08:45→20:59)
[2019-10-02] MEDS: Isosorbide MONOnitrate (24 HR) 60 MG TAB.ER.24H PO SCH (08:46)
[2019-10-02] MEDS ORDERED: Metoprolol XL (24 HR) Succ 50 MG TAB.ER.24H PO SCH (09:00)
[2019-10-02 10:43] LABS: ABG Base Excess 5 mEq/L (-2 to 3); ABG HCO3 33 mEq/L (21-27); ABG Oxygen Saturation 91 % (95-98); ABG PCO2 68 mmHg (35-45); ABG PH 7.29 pH Units (7.32-7.45); ABG PO2 70 mmHg (85-104); ABG TCO2 35 mEq/L (20-26)
[2019-10-02] MEDS: *HR* OxyCODONE/APAP 10/325 TABLET PO PRN (20:59)
[2019-10-03] MEDS: Insulin LISPRO 300 UNITS/3 ML VIAL SQ SCH ×3 (00:40→11:19)
[2019-10-03 06:49] LABS: Basophils % 0.2 %; Eosinophils # 0.1 K/mcL (0.0-0.6); Eosinophils % 2.2 %; Hematocrit 29.6 % (35.3-44.9); Hemoglobin 9.2 g/dL (11.5-15.4); Immature Granulocytes % 0.3 % (0-4); Lymphocytes % 17.2 %; Mean Corpuscular HGB Conc 31.1 g/dL (31.6-35.5); Mean Corpuscular Hemoglobin 30.8 pg (28.0-33.3); Mean Platelet Volume 11.2 fL (9.4-12.4); Monocytes # 0.5 K/mcL (0.0-1.3); Monocytes % 8.5 %; Neutrophils # 4.2 K/mcL (1.6-8.9); Platelet Count 156 K/mcL (140-400); Red Blood Count 2.99 M/mcL (3.82-4.97); Red Cell Distribution Width 13.8 % (11.5-14.5); Segmented Neutrophils % 71.6 %; White Blood Count 5.9 K/mcL (4.3-11.1)
[2019-10-03 06:54] VITALS: BP 147/71
[2019-10-03 07:17] LABS: BUN/Creatinine Ratio 28 (6-26); Blood Urea Nitrogen 22 mg/dL (8-23); Calcium 8.3 mg/dL (8.6-10.3); Carbon Dioxide 32 mEq/L (23-29); Chloride 104 mEq/L (98-107); Glucose 84 mg/dL (70-105); Magnesium 1.6 mg/dL (1.6-2.6); Osmolality,Calculated 293 (280-300); Phosphorous 2.1 mg/dL (2.7-4.5); Sodium 140 mEq/L (136-145); eGFR For African Americans > 60 (> 60); eGFR For Non-African Americans > 60 (> 60)
[2019-10-03 07:21] LABS: Thyroid Stimulating Hormone 12.147 mcIU/mL (0.340-5.600)
[2019-10-03] MEDS: lisinopriL 20 MG TABLET PO SCH (09:01)
[2019-10-03] MEDS: Cefdinir 300 MG CAPSULE PO SCH (09:01)
[2019-10-03] MEDS: Furosemide 40 MG TABLET PO SCH (09:01)
[2019-10-03] MEDS: Isosorbide MONOnitrate (24 HR) 60 MG TAB.ER.24H PO SCH (09:01)
[2019-10-03] MEDS: Apixaban 2.5 MG TABLET PO SCH (09:01)
[2019-10-03] MEDS: Gabapentin 300 MG CAPSULE PO SCH (09:01)
== END 2019-10-03 12:59 | disposition home health service (06) | DRG 811 ==
LOC: ICNU 12:45 → SUATTDRO 14:16 → 2ANU 10-01 11:17
PROVIDERS: ADMIT Pediatrics; ATTEND Internal Medicine

== ENCOUNTER 2019-11-05 07:24 | Inpatient (IN) ==
[2019-11-05] MEDS ORDERED: Heparin 1,000 UNITS/500 mL 500 ML ONE (07:35)
[2019-11-05] MEDS ORDERED: *HR* Promethazine 25 MG/ML VIAL IVP PRN (07:36)
[2019-11-05] MEDS ORDERED: *HR* HYDROmorphone PF 0.5 MG/0.5 ML SYRINGE IVP PRN (07:36)
[2019-11-05] MEDS ORDERED: Acetaminophen IV 1,000 MG/100 ML INFUS..BTL IVPB ONE (07:36)
[2019-11-05] MEDS ORDERED: Pregabalin 75 MG CAPSULE PO ONE (07:36)
[2019-11-05] MEDS ORDERED: *HR* Labetalol 20 MG/4 ML SYRINGE IVP PRN (07:36)
[2019-11-05] MEDS ORDERED: Famotidine 20 MG/2 ML VIAL IVP ONE (07:36)
[2019-11-05] MEDS ORDERED: *HR* HYDROmorphone 2 MG TABLET PO PRN (07:36)
[2019-11-05] MEDS ORDERED: *HR* OxyCODONE Immed Rel 5 MG TABLET PO PRN (07:36)
[2019-11-05] MEDS ORDERED: ACETAMINOPHEN 720 MG/72 ML IVPB ONE (07:40)
[2019-11-05] MEDS ORDERED: CeFAZolin Syr 2,000MG/20 ML 2,000 MG/20 ML SYRINGE IVPB ONE (07:57)
[2019-11-05] MEDS ORDERED: Heparin 1,000 UNITS/500 mL 0 ML ONE (08:00)
[2019-11-05] MEDS ORDERED: Naloxone 0.4 MG/ML INJ IVP PRN (09:25)
[2019-11-05] MEDS: Ringers Solution, Lactated 1,000 ML IVC SCH (11:15)
[2019-11-05] MEDS: Furosemide 40 MG TABLET PO SCH ×2 (14:52→20:16)
[2019-11-05] MEDS: Gabapentin 300 MG CAPSULE PO SCH ×2 (14:52→20:16)
[2019-11-05] MEDS: Isosorbide MONOnitrate (24 HR) 30 MG TAB.ER.24H PO SCH (14:52)
[2019-11-05] MEDS: Metoprolol XL (24 HR) Succ 50 MG TAB.ER.24H PO SCH (14:53)
[2019-11-05] MEDS: lisinopriL 20 MG TABLET PO SCH (14:53)
[2019-11-05] MEDS: Ascorbic Acid 500 MG TABLET PO SCH (14:53)
[2019-11-05] MEDS: *HR* OxyCODONE/APAP 10/325 TABLET PO PRN (20:16)
[2019-11-06] MEDS ORDERED: Regadenoson 0.4 MG/5 ML SYRINGE IVP ONE ×2 (06:15→12:39)
[2019-11-06] MEDS: Gabapentin 300 MG CAPSULE PO SCH ×3 (08:58→21:32)
[2019-11-06] MEDS: Furosemide 40 MG TABLET PO SCH ×2 (08:58→17:29)
[2019-11-06] MEDS: lisinopriL 20 MG TABLET PO SCH (08:59)
[2019-11-06] MEDS: Metoprolol XL (24 HR) Succ 50 MG TAB.ER.24H PO SCH (08:59)
[2019-11-06 10:05] LABS: Albumin 3.6 g/dL (3.5-5.7); Albumin/Globulin Ratio 1.6 (1.1-2.2); Bilirubin,Total 0.4 mg/dL (0.3-1.0); Calcium 8.5 mg/dL (8.6-10.3); Globulin 2.3 g/dL (2.4-3.5); Magnesium 1.4 mg/dL (1.6-2.6); Potassium 3.6 mEq/L (3.5-5.1); Total Protein 5.9 g/dL (6.4-8.9)
[2019-11-06 10:18] LABS: Thyroid Stimulating Hormone 20.738 mcIU/mL (0.340-5.600)
[2019-11-06 11:39] LABS: Hematocrit 35.2 % (35.3-44.9); Hemoglobin 10.8 g/dL (11.5-15.4); Mean Corpuscular HGB Conc 30.7 g/dL (31.6-35.5); Mean Corpuscular Hemoglobin 29.9 pg (28.0-33.3); Mean Corpuscular Volume 97.5 fL (83.0-100.0); Mean Platelet Volume 11.2 fL (9.4-12.4); Platelet Count 178 K/mcL (140-400); Red Blood Count 3.61 M/mcL (3.82-4.97); Red Cell Distribution Width 14.4 % (11.5-14.5); White Blood Count 5.2 K/mcL (4.3-11.1)
[2019-11-06] MEDS: Isosorbide MONOnitrate (24 HR) 30 MG TAB.ER.24H PO SCH (17:25)
[2019-11-06] MEDS: Ascorbic Acid 500 MG TABLET PO SCH (17:25)
[2019-11-06] MEDS: Levothyroxine 25 MCG TABLET PO SCH (17:26)
[2019-11-06] MEDS: carvediloL 6.25 MG TABLET PO SCH (17:29)
[2019-11-06] MEDS: *HR* OxyCODONE/APAP 10/325 TABLET PO PRN (20:04)
[2019-11-07] MEDS: *HR* OxyCODONE/APAP 10/325 TABLET PO PRN ×2 (04:04→17:30)
[2019-11-07] MEDS: Levothyroxine 25 MCG TABLET PO SCH (05:47)
[2019-11-07] MEDS ORDERED: Protamine Sulfate 50 MG/5 ML VIAL IVP ONE (06:27)
[2019-11-07] MEDS ORDERED: Papaverine 60 MG/2 ML VIAL IVP ONE (06:27)
[2019-11-07] MEDS ORDERED: Heparin 1,000 UNITS/500 mL 1,500 ML ONE (06:28)
[2019-11-07] MEDS ORDERED: Lidocaine -MPF 4% 5 ML AMPUL ONE (07:14)
[2019-11-07] MEDS ORDERED: Lidocaine -MPF 2% 2 ML VIAL ONE (07:14)
[2019-11-07] MEDS ORDERED: *HR* FentaNYL (PF) 100 MCG/2 ML VIAL ONE ×2 (07:14→12:33)
[2019-11-07] MEDS ORDERED: *HR* Rocuronium Bromide 50 MG/5 ML VIAL ONE ×2 (07:14→09:48)
[2019-11-07] MEDS ORDERED: Ondansetron 4 MG/2 ML VIAL ONE (07:14)
[2019-11-07] MEDS ORDERED: *HR* Propofol 200 MG/20 ML VIAL IVP ONE (07:15)
[2019-11-07] MEDS ORDERED: Heparin 1,000 UNITS/500 mL 0 ML ONE (07:15)
[2019-11-07] MEDS ORDERED: *HR* Vasopressin 20 UNIT/ML VIAL ONE (07:25)
[2019-11-07] MEDS ORDERED: EPHEDrine 50 MG/ML VIAL ONE (07:28)
[2019-11-07] MEDS ORDERED: *HR* Phenylephrine 10 MG/ML VIAL ONE (07:31)
[2019-11-07] MEDS ORDERED: NiCARdipine 2.5 MG/10 ML Syringe IVPB ONE (07:35)
[2019-11-07] MEDS ORDERED: ceFAZolin 1,000 MG, Sodium Chloride IRRigation 1,000 ML IR ONE ×2 (07:45→14:41)
[2019-11-07] MEDS ORDERED: *HR* Magnesium Sulfate 1 GM/2 ML VIAL ONE (08:32)
[2019-11-07] MEDS ORDERED: Magnesium Oxide 400 MG TABLET PO SCH (09:00)
[2019-11-07] MEDS ORDERED: Furosemide 40 MG TABLET PO SCH (09:00)
[2019-11-07] MEDS ORDERED: *HR* Heparin 5,000 UNIT/ML VIAL ONE ×2 (09:42→11:43)
[2019-11-07 12:15] LABS: ABG Base Excess 0 mEq/L (-2 to 3); ABG Chloride 111 mEq/L (98-107); ABG Glucose 83 mg/dL (60-95); ABG HCO3 26 mEq/L (21-27); ABG Ionized Calcium 0.83 mmol/L (1.15-1.35); ABG Oxygen Saturation 100 % (95-98); ABG PCO2 46 mmHg (35-45); ABG PH 7.36 pH Units (7.32-7.45); ABG PO2 268 mmHg (85-104); ABG TCO2 27 mEq/L (20-26)
[2019-11-07] MEDS ORDERED: *HR* OxyCODONE Immed Rel 5 MG TABLET PO PRN (13:38)
[2019-11-07] MEDS ORDERED: Ondansetron 4 MG/2 ML VIAL IVP ONE (13:38)
[2019-11-07] MEDS ORDERED: Naloxone 0.4 MG/ML INJ IVP PRN ×2 (14:41)
[2019-11-07] MEDS ORDERED: Acetaminophen 325 MG TABLET PO PRN (14:41)
[2019-11-07] MEDS ORDERED: *HR* HYDROcodone/Acet 5/325 mg TABLET PO PRN (14:41)
[2019-11-07] MEDS ORDERED: 0.9 % Sodium Chloride 250 ML IV ONE (15:56)
[2019-11-07] MEDS: CeFAZolin 2 GM/120 ML BAG IVPB SCH (16:27)
[2019-11-07 16:50] LABS: Hematocrit 39.3 % (35.3-44.9); Hemoglobin 11.9 g/dL (11.5-15.4)
[2019-11-07] MEDS: Gabapentin 300 MG CAPSULE PO SCH ×2 (16:50→20:21)
[2019-11-07] MEDS: carvediloL 6.25 MG TABLET PO SCH (16:50)
[2019-11-07] MEDS: Ondansetron 4 MG/2 ML VIAL IVP PRN (17:31)
[2019-11-08] MEDS: CeFAZolin 2 GM/120 ML BAG IVPB SCH ×2 (00:14→09:28)
[2019-11-08] MEDS: *HR* OxyCODONE/APAP 10/325 TABLET PO PRN (03:35)
[2019-11-08] MEDS: Levothyroxine 25 MCG TABLET PO SCH (05:31)
[2019-11-08 05:54] LABS: Calcium 8.3 mg/dL (8.6-10.3); Potassium 4.4 mEq/L (3.5-5.1)
[2019-11-08 05:58] LABS: Hematocrit 36.2 % (35.3-44.9); Hemoglobin 10.7 g/dL (11.5-15.4); Immature Granulocytes % 0.3 % (0-4); Lymphocytes # 0.6 K/mcL (0.6-4.6); Lymphocytes % 5.1 %; Mean Corpuscular HGB Conc 29.6 g/dL (31.6-35.5); Mean Corpuscular Hemoglobin 29.5 pg (28.0-33.3); Mean Corpuscular Volume 99.7 fL (83.0-100.0); Mean Platelet Volume 11.9 fL (9.4-12.4); Monocytes # 0.6 K/mcL (0.0-1.3); Monocytes % 5.2 %; Neutrophils # 10.2 K/mcL (1.6-8.9); Platelet Count 149 K/mcL (140-400); Red Blood Count 3.63 M/mcL (3.82-4.97); Red Cell Distribution Width 14.2 % (11.5-14.5); Segmented Neutrophils % 89.4 %
[2019-11-08 05:59] LABS: White Blood Count 11.4 K/mcL (4.3-11.1)
[2019-11-08] MEDS: Furosemide 40 MG TABLET PO SCH ×2 (09:27→19:17)
[2019-11-08] MEDS: lisinopriL 20 MG TABLET PO SCH ×2 (09:27→19:18)
[2019-11-08] MEDS: Gabapentin 300 MG CAPSULE PO SCH ×4 (09:27→20:20)
[2019-11-08] MEDS: carvediloL 6.25 MG TABLET PO SCH ×3 (09:27→19:17)
[2019-11-08] MEDS: Ascorbic Acid 500 MG TABLET PO SCH ×2 (09:27→19:18)
[2019-11-08] MEDS: Magnesium Oxide 400 MG TABLET PO SCH (09:28)
[2019-11-08] MEDS: Isosorbide MONOnitrate (24 HR) 60 MG TAB.ER.24H PO SCH (09:28)
[2019-11-08] MEDS: Ondansetron 4 MG/2 ML VIAL IVP PRN (09:30)
[2019-11-08] MEDS: 0.9 % Sodium Chloride 1,000 ML IVC SCH (18:02)
[2019-11-08] MEDS: Metoclopramide 10 MG/2 ML VIAL IVP SCH (18:02)
[2019-11-08] MEDS: Ringers Solution, Lactated 1,000 ML IVC SCH ×2 (19:16→19:17)
[2019-11-08] MEDS: Isosorbide MONOnitrate (24 HR) 30 MG TAB.ER.24H PO SCH (19:17)
[2019-11-09] MEDS: Metoclopramide 10 MG/2 ML VIAL IVP SCH ×5 (00:04→23:36)
[2019-11-09] MEDS: Levothyroxine 25 MCG TABLET PO SCH (05:30)
[2019-11-09] MEDS: Gabapentin 300 MG CAPSULE PO SCH ×3 (08:40→20:27)
[2019-11-09] MEDS: Isosorbide MONOnitrate (24 HR) 60 MG TAB.ER.24H PO SCH (08:40)
[2019-11-09] MEDS: Magnesium Oxide 400 MG TABLET PO SCH (08:41)
[2019-11-09] MEDS: lisinopriL 20 MG TABLET PO SCH (08:41)
[2019-11-09] MEDS: carvediloL 6.25 MG TABLET PO SCH ×2 (08:41→17:00)
[2019-11-09] MEDS: Furosemide 40 MG TABLET PO SCH (08:41)
[2019-11-09] MEDS: Ascorbic Acid 500 MG TABLET PO SCH (08:41)
[2019-11-09] MEDS: 0.9 % Sodium Chloride 1,000 ML IVC SCH (15:30)
[2019-11-10] MEDS: Metoclopramide 10 MG/2 ML VIAL IVP SCH ×3 (05:09→16:32)
[2019-11-10] MEDS: Levothyroxine 25 MCG TABLET PO SCH (05:09)
[2019-11-10] MEDS: carvediloL 6.25 MG TABLET PO SCH ×2 (07:30→16:32)
[2019-11-10] MEDS: lisinopriL 20 MG TABLET PO SCH (07:30)
[2019-11-10] MEDS: Isosorbide MONOnitrate (24 HR) 60 MG TAB.ER.24H PO SCH (07:39)
[2019-11-10] MEDS: Furosemide 40 MG TABLET PO SCH (07:39)
[2019-11-10] MEDS: Gabapentin 300 MG CAPSULE PO SCH ×2 (07:39→14:35)
[2019-11-10] MEDS: Ascorbic Acid 500 MG TABLET PO SCH (07:39)
[2019-11-10] MEDS: Magnesium Oxide 400 MG TABLET PO SCH (07:39)
[2019-11-10 15:47] VITALS: BP 137/63
== END 2019-11-10 19:10 | disposition home or self-care (01) | DRG 169 ==
LOC: SAMDAY 07:24 → 2NNU 10:55
PROVIDERS: ADMIT Surgery Vascular Surgery; ATTEND Surgery Vascular Surgery

== ENCOUNTER 2020-03-02 15:48 | Inpatient (IN) ==
[2020-03-02] MEDS ORDERED: 0.9 % Sodium Chloride 1,000 ML ONE (16:31)
[2020-03-02] MEDS ORDERED: Magnesium Sulfate 1 GM/102 ML PIGGYBACK IVPB ONE (16:32)
[2020-03-02] MEDS ORDERED: 0.9 % Sodium Chloride 1,000 ML IVC ONE ×2 (16:32→19:43)
[2020-03-02] MEDS ORDERED: *HR* Metoprolol 5 MG/5 ML VIAL IVP PRN (16:32)
[2020-03-02] MEDS ORDERED: Isovue-370 500 ML BOTTLE IVP ONE (16:34)
[2020-03-02 16:44] LABS: INR 1.4; Prothrombin Time 15.9 Seconds (9.4-12.1)
[2020-03-02 16:47] LABS: Activated Partial Thrombo Time 25.6 Seconds (26.0-36.0)
[2020-03-02 16:52] LABS: Basophils % 0.2 %; Eosinophils % 0.2 %; Hematocrit 38.8 % (35.3-44.9); Hemoglobin 12.1 g/dL (11.5-15.4); Immature Granulocytes % 1.1 % (0-4); Lymphocytes # 0.6 K/mcL (0.6-4.6); Lymphocytes % 4.7 %; Mean Corpuscular HGB Conc 31.2 g/dL (31.6-35.5); Mean Corpuscular Hemoglobin 29.5 pg (28.0-33.3); Mean Corpuscular Volume 94.6 fL (83.0-100.0); Mean Platelet Volume 12.3 fL (9.4-12.4); Monocytes # 0.7 K/mcL (0.0-1.3); Monocytes % 4.8 %; Neutrophils # 12.2 K/mcL (1.6-8.9); Platelet Count 202 K/mcL (140-400); Red Cell Distribution Width 15.1 % (11.5-14.5); White Blood Count 13.7 K/mcL (4.3-11.1)
[2020-03-02 17:14] LABS: Albumin 3.8 g/dL (3.5-5.7); Albumin/Globulin Ratio 1.1 (1.1-2.2); Bilirubin,Direct 0.4 mg/dL (0.0-0.2); Bilirubin,Indirect 0.7 mg/dL (0.0-1.0); Bilirubin,Total 1.1 mg/dL (0.3-1.0); Calcium 9.5 mg/dL (8.6-10.3); Globulin 3.5 g/dL (2.4-3.5); Magnesium 2.1 mg/dL (1.6-2.6); Potassium 3.1 mEq/L (3.5-5.1); Thyroid Stimulating Hormone 27.863 mcIU/mL (0.340-5.600); Total Protein 7.3 g/dL (6.4-8.9); Troponin I 0.05 ng/mL (< 0.04)
[2020-03-02 19:05] LABS: Amorphous Sediment,Urine Few per hpf (None-Few); Bacteria,Urine Moderate per hpf (None-Few); Bilirubin,Urine Negative (Negative); Blood,Urine Trace (Negative); Clarity,Urine Turbid (Clear); Color,Urine Yellow (Yellow); Glucose,Urine (UA) Normal (Normal); Hyaline Casts,Urine Few per lpf (None Seen); Ketones,Urine Negative (Negative); Leukocyte Esterase,Urine Small (Negative); Mucus,Urine Few per lpf (None-Few); Nitrite,Urine Negative (Negative); PH,Urine 5.5 pH Units (5.0-8.0); Protein,Urine 30 mg/dL (Neg-Trace); RBC,Urine 0-3 per hpf (0-3); Specific Gravity,Urine 1.011 (1.010-1.025); Squamous Epithelial Cell,Urine Few per hpf (None-Few); Urobilinogen,Urine Normal (Normal); WBC,Urine 0-3 per hpf (0-3)
[2020-03-02] MEDS ORDERED: cefTRIAXone 1,000 MG in 0.9 % Sodium Chloride Mini Bag 100 ML IVPB ONE (19:27)
[2020-03-02] MEDS ORDERED: Naloxone 0.4 MG/ML INJ IVP PRN (19:55)
[2020-03-02] MEDS ORDERED: Acetaminophen 325 MG TABLET PO PRN (19:55)
[2020-03-02] MEDS ORDERED: Ondansetron 4 MG/2 ML VIAL IVP PRN (19:55)
[2020-03-02] MEDS ORDERED: Dextrose Gel 15 GM/37.5 ML TUBE PO PRN ×2 (19:59)
[2020-03-02] MEDS ORDERED: *HR* Dextrose 50 % in Water (Vial) 50 ML VIAL IVP PRN (19:59)
[2020-03-02] MEDS ORDERED: *HR* Heparin 5,000 UNIT/ML VIAL IVP PRN (19:59)
[2020-03-02] MEDS ORDERED: D5% in Water 1,000 ML IVC PRN (19:59)
[2020-03-02] MEDS ORDERED: Ringers Solution, Lactated 1,000 ML IVC SCH (20:00)
[2020-03-02] MEDS ORDERED: Perflutren Lipid Microsphere 1.3 ML in 0.9 % Sodium Chloride 8.7 ML IVP PRN (20:43)
[2020-03-02] MEDS: Piperacillin/Tazobactam 3.375 GM in 0.9 % Sodium Chloride Mini Bag 100 ML IVPB SCH (23:46)
[2020-03-02] MEDS: Heparin 25,000UNIT/250ML 1/2NS 25,000 UNIT/250 ML IV.SOLN IVC SCH (23:46)
[2020-03-03] MEDS: Insulin LISPRO 300 UNITS/3 ML VIAL SUBQ SCH ×4 (00:33→17:12)
[2020-03-03] MEDS: *HR* Metoprolol 5 MG/5 ML VIAL IVP ONE ×2 (00:33→01:24)
[2020-03-03 01:43] LABS: Basophils % 0.1 %; Eosinophils % 0.4 %; Hematocrit 32.8 % (35.3-44.9); Hemoglobin 10.4 g/dL (11.5-15.4); Immature Granulocytes % 0.4 % (0-4); Lymphocytes # 0.4 K/mcL (0.6-4.6); Lymphocytes % 5.5 %; Mean Corpuscular HGB Conc 31.7 g/dL (31.6-35.5); Mean Corpuscular Hemoglobin 29.9 pg (28.0-33.3); Mean Corpuscular Volume 94.3 fL (83.0-100.0); Mean Platelet Volume 11.9 fL (9.4-12.4); Monocytes # 0.4 K/mcL (0.0-1.3); Monocytes % 5.6 %; Neutrophils # 6.9 K/mcL (1.6-8.9); Platelet Count 152 K/mcL (140-400); Red Blood Count 3.48 M/mcL (3.82-4.97); Red Cell Distribution Width 15.2 % (11.5-14.5); White Blood Count 7.8 K/mcL (4.3-11.1)
[2020-03-03 01:44] LABS: INR 1.4
[2020-03-03 01:45] LABS: INR 1.3; Prothrombin Time 14.9 Seconds (9.4-12.1)
[2020-03-03 02:01] LABS: Albumin 3.3 g/dL (3.5-5.7); Albumin/Globulin Ratio 1.1 (1.1-2.2); Bilirubin,Total 0.5 mg/dL (0.3-1.0); Calcium 8.3 mg/dL (8.6-10.3); Chol/HDL Ratio 3.5 (0-4.9); Globulin 2.9 g/dL (2.4-3.5); Magnesium 2.2 mg/dL (1.6-2.6); Phosphorous 2.9 mg/dL (2.7-4.5); Potassium 4.2 mEq/L (3.5-5.1); Total Protein 6.2 g/dL (6.4-8.9)
[2020-03-03 02:05] LABS: Heparin anti-factor XA UFH 1.31 IU/mL (0.30-0.70)
[2020-03-03] MEDS: Levothyroxine 25 MCG TABLET PO SCH (06:21)
[2020-03-03] MEDS ORDERED: Metoprolol XL (24 HR) Succ 50 MG TAB.ER.24H PO SCH (09:00)
[2020-03-03] MEDS: *HR* Heparin 5,000 UNIT/ML VIAL IVP PRN (09:29)
[2020-03-03] MEDS: Piperacillin/Tazobactam 3.375 GM in 0.9 % Sodium Chloride Mini Bag 100 ML IVPB SCH ×2 (09:29→16:38)
[2020-03-03 09:34] LABS: Adenovirus Not Detected (Not Detect); Bordetella Pertussis Not Detected (Not Detect); Chlamydophila pneumoniae Not Detected (Not Detect); Coronavirus 229E Not Detected (Not Detect); Coronavirus HKU1 Not Detected (Not Detect); Coronavirus NL63 Not Detected (Not Detect); Coronavirus OC43 Not Detected (Not Detect); Human Metapneumovirus Not Detected (Not Detect); Human Rhinovirus/Enterovirus Not Detected (Not Detect); Influenza A Subtype 2009 H1 Not Detected (Not Detect); Influenza B Not Detected (Not Detect); Mycoplasma pneumoniae Not Detected (Not Detect); Parainfluenza Virus 1 Not Detected (Not Detect); Parainfluenza Virus 2 Not Detected (Not Detect); Parainfluenza Virus 3 Not Detected (Not Detect); Parainfluenza Virus 4 Not Detected (Not Detect); Respiratory Syncytial Virus Not Detected (Not Detect); SARS-CoV-2 Not Detected (Not Detect)
[2020-03-03] MEDS ORDERED: *HR* OxyCODONE/APAP 10/325 TABLET PO PRN (17:52)
[2020-03-03] MEDS: Metoprolol XL (24 HR) Succ 50 MG TAB.ER.24H PO SCH (23:00)
[2020-03-04] MEDS: Piperacillin/Tazobactam 3.375 GM in 0.9 % Sodium Chloride Mini Bag 100 ML IVPB SCH ×3 (00:31→17:12)
[2020-03-04] MEDS: Insulin LISPRO 300 UNITS/3 ML VIAL SUBQ SCH ×5 (00:32→20:56)
[2020-03-04 06:48] LABS: Basophils % 0.2 %; Eosinophils # 0.1 K/mcL (0.0-0.6); Eosinophils % 1.1 %; Hematocrit 31.8 % (35.3-44.9); Hemoglobin 10.1 g/dL (11.5-15.4); Immature Granulocytes % 0.2 % (0-4); Lymphocytes # 0.6 K/mcL (0.6-4.6); Lymphocytes % 9.7 %; Mean Corpuscular HGB Conc 31.8 g/dL (31.6-35.5); Mean Corpuscular Hemoglobin 29.9 pg (28.0-33.3); Mean Corpuscular Volume 94.1 fL (83.0-100.0); Mean Platelet Volume 11.9 fL (9.4-12.4); Monocytes # 0.5 K/mcL (0.0-1.3); Monocytes % 8.9 %; Neutrophils # 4.9 K/mcL (1.6-8.9); Platelet Count 172 K/mcL (140-400); Red Blood Count 3.38 M/mcL (3.82-4.97); Segmented Neutrophils % 79.9 %; White Blood Count 6.1 K/mcL (4.3-11.1)
[2020-03-04] MEDS: Levothyroxine 25 MCG TABLET PO SCH (06:53)
[2020-03-04 07:08] LABS: Calcium 8.8 mg/dL (8.6-10.3); Potassium 4.4 mEq/L (3.5-5.1)
[2020-03-04] MEDS: *HR* Heparin 5,000 UNIT/ML VIAL IVP PRN ×2 (07:35→15:59)
[2020-03-04] MEDS: Isosorbide MONOnitrate (24 HR) 60 MG TAB.ER.24H PO SCH (08:23)
[2020-03-04] MEDS: Metoprolol XL (24 HR) Succ 50 MG TAB.ER.24H PO SCH (08:23)
[2020-03-04] MEDS ORDERED: Metoprolol XL (24 HR) Succ 25 MG TAB.ER.24H PO ONE (12:49)
[2020-03-04] MEDS ORDERED: *HR* Metoprolol 5 MG/5 ML VIAL IVP ONE ×2 (14:53→14:54)
[2020-03-04] MEDS: Heparin 25,000UNIT/250ML 1/2NS 25,000 UNIT/250 ML IV.SOLN IVC SCH (15:14)
[2020-03-04] MEDS ORDERED: Pantoprazole 40 MG VIAL IVP ONE (18:43)
[2020-03-04] MEDS ORDERED: Metoprolol XL (24 HR) Succ 25 MG TAB.ER.24H PO SCH (21:00)
[2020-03-05] MEDS ORDERED: *HR* LORazepam 2 MG/ML VIAL IVP ONE
[2020-03-05] MEDS ORDERED: Piperacillin/Tazobactam 3.375 GM in 0.9 % Sodium Chloride Mini Bag 100 ML IVPB SCH (04:00)
[2020-03-05 05:09] LABS: Basophils % 0.2 %; Eosinophils # 0.1 K/mcL (0.0-0.6); Eosinophils % 2.1 %; Hematocrit 29.9 % (35.3-44.9); Hemoglobin 9.1 g/dL (11.5-15.4); Immature Granulocytes % 0.6 % (0-4); Lymphocytes # 0.7 K/mcL (0.6-4.6); Mean Corpuscular HGB Conc 30.4 g/dL (31.6-35.5); Mean Corpuscular Hemoglobin 28.8 pg (28.0-33.3); Mean Corpuscular Volume 94.6 fL (83.0-100.0); Mean Platelet Volume 11.7 fL (9.4-12.4); Monocytes # 0.5 K/mcL (0.0-1.3); Monocytes % 10.1 %; Neutrophils # 3.5 K/mcL (1.6-8.9); Platelet Count 169 K/mcL (140-400); Red Blood Count 3.16 M/mcL (3.82-4.97); Red Cell Distribution Width 14.9 % (11.5-14.5); White Blood Count 4.9 K/mcL (4.3-11.1)
[2020-03-05 05:44] LABS: Calcium 8.2 mg/dL (8.6-10.3); Potassium 4.4 mEq/L (3.5-5.1)
[2020-03-05] MEDS: Levothyroxine 25 MCG TABLET PO SCH (08:56)
[2020-03-05] MEDS: Heparin 25,000UNIT/250ML 1/2NS 25,000 UNIT/250 ML IV.SOLN IVC SCH (08:56)
[2020-03-05] MEDS: Insulin LISPRO 300 UNITS/3 ML VIAL SUBQ SCH ×4 (08:56→21:10)
[2020-03-05] MEDS ORDERED: Apixaban 5 MG TABLET PO SCH (11:30)
[2020-03-05] MEDS: Isosorbide MONOnitrate (24 HR) 60 MG TAB.ER.24H PO SCH (12:47)
[2020-03-05] MEDS: cefTRIAXone 2,000 MG in Water for inj. (sterile) 20 ML IVP SCH (12:48)
[2020-03-05] MEDS: Metoprolol XL (24 HR) Succ 50 MG TAB.ER.24H PO SCH ×2 (12:48→21:10)
[2020-03-05] MEDS: DilTIAZem CD (24hr) 120 MG CAP.ER.24H PO SCH (15:08)
[2020-03-05] MEDS: Apixaban 2.5 MG TABLET PO SCH ×2 (15:08→21:10)
[2020-03-05] MEDS: Furosemide 20 MG/2 ML VIAL IVP SCH (18:15)
[2020-03-05] MEDS: Piperacillin/Tazobactam 3.375 GM in 0.9 % Sodium Chloride Mini Bag 100 ML IVPB SCH (19:15)
[2020-03-05] MEDS ORDERED: QUEtiapine Fumarate 25 MG TABLET PO SCH (22:00)
[2020-03-06] MEDS: Levothyroxine 25 MCG TABLET PO SCH (05:22)
[2020-03-06 06:58] LABS: Basophils % 0.2 %; Eosinophils # 0.1 K/mcL (0.0-0.6); Eosinophils % 2.2 %; Hematocrit 29.7 % (35.3-44.9); Hemoglobin 9.4 g/dL (11.5-15.4); Immature Granulocytes % 0.7 % (0-4); Lymphocytes # 0.6 K/mcL (0.6-4.6); Lymphocytes % 10.5 %; Mean Corpuscular HGB Conc 31.6 g/dL (31.6-35.5); Mean Corpuscular Hemoglobin 29.7 pg (28.0-33.3); Mean Platelet Volume 11.5 fL (9.4-12.4); Monocytes # 0.4 K/mcL (0.0-1.3); Monocytes % 6.7 %; Neutrophils # 4.8 K/mcL (1.6-8.9); Platelet Count 177 K/mcL (140-400); Red Blood Count 3.16 M/mcL (3.82-4.97); Red Cell Distribution Width 14.8 % (11.5-14.5); Segmented Neutrophils % 79.7 %
[2020-03-06] MEDS ORDERED: Perflutren Lipid Microsphere 1.3 ML in 0.9 % Sodium Chloride 8.7 ML IVP PRN (07:17)
[2020-03-06 07:19] LABS: Calcium 8.7 mg/dL (8.6-10.3); Magnesium 1.8 mg/dL (1.6-2.6); Phosphorous 2.7 mg/dL (2.7-4.5); Potassium 3.8 mEq/L (3.5-5.1)
[2020-03-06] MEDS: Insulin LISPRO 300 UNITS/3 ML VIAL SUBQ SCH ×2 (09:16→11:20)
[2020-03-06] MEDS: DilTIAZem CD (24hr) 120 MG CAP.ER.24H PO SCH (09:16)
[2020-03-06] MEDS: Isosorbide MONOnitrate (24 HR) 60 MG TAB.ER.24H PO SCH (09:16)
[2020-03-06] MEDS: Metoprolol XL (24 HR) Succ 50 MG TAB.ER.24H PO SCH (09:16)
[2020-03-06] MEDS: Apixaban 2.5 MG TABLET PO SCH (09:17)
[2020-03-06] MEDS: cefTRIAXone 2,000 MG in Water for inj. (sterile) 20 ML IVP SCH (09:17)
[2020-03-06] MEDS: Furosemide 20 MG/2 ML VIAL IVP SCH (09:17)
[2020-03-06 11:07] VITALS: BP 122/60
== END 2020-03-06 13:52 | disposition home health service (06) | DRG 720 ==
LOC: CDU 15:48 → EMEROOARM 15:48 → SUATTDRO 21:01 → CDU 23:07 → SUATTDRO 03-04 17:40 → 3ANU 03-06 05:10
PROVIDERS: ADMIT Student in an Organized Health Care Education/Training Program; ATTEND Internal Medicine

== ENCOUNTER 2020-06-11 14:34 | Inpatient (IN) ==
[2020-06-11] MEDS ORDERED: *HR* FentaNYL (PF) 100 MCG/2 ML VIAL IVP ONE (15:09)
[2020-06-11 15:33] LABS: Basophils % 0.2 %; Eosinophils % 0.2 %; Hematocrit 33.5 % (35.3-44.9); Hemoglobin 10.2 g/dL (11.5-15.4); Immature Granulocytes % 0.5 % (0-4); Lymphocytes # 0.6 K/mcL (0.6-4.6); Lymphocytes % 5.1 %; Mean Corpuscular HGB Conc 30.4 g/dL (31.6-35.5); Mean Corpuscular Hemoglobin 28.4 pg (28.0-33.3); Mean Corpuscular Volume 93.3 fL (83.0-100.0); Mean Platelet Volume 10.9 fL (9.4-12.4); Monocytes # 0.5 K/mcL (0.0-1.3); Monocytes % 4.2 %; Neutrophils # 9.9 K/mcL (1.6-8.9); Platelet Count 211 K/mcL (140-400); Red Blood Count 3.59 M/mcL (3.82-4.97); Red Cell Distribution Width 13.4 % (11.5-14.5); Segmented Neutrophils % 89.8 %; White Blood Count 11.1 K/mcL (4.3-11.1)
[2020-06-11 15:40] LABS: INR 1.3; Prothrombin Time 14.6 Seconds (9.4-12.1)
[2020-06-11 15:53] LABS: BUN/Creatinine Ratio 21 (6-26); Blood Urea Nitrogen 28 mg/dL (8-23); Calcium 9.2 mg/dL (8.6-10.3); Carbon Dioxide 28 mEq/L (23-29); Chloride 100 mEq/L (98-107); Glucose 129 mg/dL (70-105); Osmolality,Calculated 293 (280-300); Potassium 4.4 mEq/L (3.5-5.1); Sodium 138 mEq/L (136-145); Troponin I < 0.03 ng/mL (< 0.04); eGFR For African Americans 47 (> 60); eGFR For Non-African Americans 39 (> 60)
[2020-06-11] MEDS ORDERED: *HR* HYDROcodone/Acet 5/325 mg TABLET PO PRN (16:55)
[2020-06-11] MEDS ORDERED: Naloxone 0.4 MG/ML INJ IVP PRN (16:55)
[2020-06-11] MEDS ORDERED: Ondansetron 4 MG/2 ML VIAL IVP PRN (16:55)
[2020-06-11] MEDS ORDERED: Ipratropium/Albuterol Neb 3 ML IH PRN (17:01)
[2020-06-11] MEDS ORDERED: Nitroglycerin 0.4 MG TAB.SUBL SL PRN (17:02)
[2020-06-11 17:07] LABS: Bilirubin,Urine Negative (Negative); Blood,Urine Negative (Negative); Clarity,Urine Clear (Clear); Color,Urine Light-Yellow (Yellow); Glucose,Urine (UA) Normal (Normal); Ketones,Urine Negative (Negative); Leukocyte Esterase,Urine Negative (Negative); Nitrite,Urine Negative (Negative); PH,Urine 5.5 pH Units (5.0-8.0); Protein,Urine Negative (Neg-Trace); Specific Gravity,Urine 1.009 (1.010-1.025); Urobilinogen,Urine Normal (Normal)
[2020-06-11] MEDS ORDERED: 0.9 % Sodium Chloride 500 ML IVC SCH (17:15)
[2020-06-11] MEDS: Metoprolol XL (24 HR) Succ 50 MG TAB.ER.24H PO SCH (23:21)
[2020-06-11] MEDS: *HR* OxyCODONE Immed Rel 5 MG TABLET PO PRN (23:42)
[2020-06-12 02:36] LABS: Basophils % 0.1 %; Hematocrit 29.5 % (35.3-44.9); Hemoglobin 9.1 g/dL (11.5-15.4); Immature Granulocytes % 0.4 % (0-4); Lymphocytes # 0.6 K/mcL (0.6-4.6); Mean Corpuscular HGB Conc 30.8 g/dL (31.6-35.5); Mean Corpuscular Hemoglobin 29.2 pg (28.0-33.3); Mean Corpuscular Volume 94.6 fL (83.0-100.0); Mean Platelet Volume 11.5 fL (9.4-12.4); Monocytes # 0.4 K/mcL (0.0-1.3); Monocytes % 6.3 %; Platelet Count 186 K/mcL (140-400); Red Blood Count 3.12 M/mcL (3.82-4.97); Red Cell Distribution Width 13.4 % (11.5-14.5); Segmented Neutrophils % 85.2 %
[2020-06-12 02:53] LABS: Calcium 8.3 mg/dL (8.6-10.3); Magnesium 1.6 mg/dL (1.6-2.6); Phosphorous 4.3 mg/dL (2.7-4.5); Potassium 4.4 mEq/L (3.5-5.1)
[2020-06-12] MEDS: Levothyroxine 25 MCG TABLET PO SCH (06:26)
[2020-06-12] MEDS: Metoprolol XL (24 HR) Succ 50 MG TAB.ER.24H PO SCH ×2 (07:39→21:38)
[2020-06-12] MEDS: Isosorbide MONOnitrate (24 HR) 60 MG TAB.ER.24H PO SCH (07:39)
[2020-06-12] MEDS: *HR* OxyCODONE Immed Rel 5 MG TABLET PO PRN ×2 (07:44→23:45)
[2020-06-12] MEDS ORDERED: DilTIAZem CD (24hr) 120 MG CAP.ER.24H PO SCH (09:00)
[2020-06-12] MEDS ORDERED: CeFAZolin Syr 2,000MG/20 ML 2,000 MG/20 ML SYRINGE IVPB ONE (11:35)
[2020-06-12] MEDS ORDERED: *HR* Vasopressin 20 UNIT/ML VIAL ONE (11:47)
[2020-06-12] MEDS ORDERED: *HR* Succinylcholine 200 MG/10 ML VIAL IVP ONE (11:49)
[2020-06-12] MEDS ORDERED: Ondansetron 4 MG/2 ML VIAL ONE (11:49)
[2020-06-12] MEDS ORDERED: EPHEDrine 50 MG/ML VIAL ONE (11:49)
[2020-06-12] MEDS ORDERED: Ondansetron 4 MG/2 ML VIAL IVP PRN (11:49)
[2020-06-12] MEDS ORDERED: *HR* FentaNYL (PF) 100 MCG/2 ML VIAL IVP PRN (11:49)
[2020-06-12] MEDS ORDERED: Lidocaine HCL 4 ML Topical Solution (Laryng-O-Jet Kit Sterile Pak) TP ONE (11:49)
[2020-06-12] MEDS ORDERED: *HR* OxyCODONE Immed Rel 5 MG TABLET PO PRN (11:49)
[2020-06-12] MEDS ORDERED: Albuterol 2.5 MG/3 ML NEBULIZER IH PRN (11:49)
[2020-06-12] MEDS ORDERED: *HR* Metoprolol 5 MG/5 ML VIAL IVP PRN (11:49)
[2020-06-12] MEDS ORDERED: *HR* FentaNYL (PF) 100 MCG/2 ML VIAL ONE (11:49)
[2020-06-12] MEDS ORDERED: Lidocaine -MPF 2% 2 ML VIAL ONE (11:49)
[2020-06-12] MEDS ORDERED: *HR* Etomidate 40 MG/20 ML VIAL IVP ONE (11:50)
[2020-06-12] MEDS ORDERED: Acetaminophen IV 1,000 MG/100 ML BAG IVPB ONE (12:25)
[2020-06-12] MEDS ORDERED: *HR* Phenylephrine 10 MG/ML VIAL ONE (13:37)
[2020-06-12] MEDS ORDERED: *HR* PHENYLEPHRINE 1,000 MCG/10 ML SYRINGE IVP ONE (13:50)
[2020-06-12] MEDS ORDERED: Ringers Solution, Lactated 1,000 ML ONE (17:22)
[2020-06-12] MEDS ORDERED: Povidone-Iodine 45 ML, Sodium Chloride IRRigation 1,000 ML IR ONE (17:30)
[2020-06-12] MEDS: CeFAZolin 2 GM/120 ML BAG IVPB SCH (23:39)
[2020-06-13 02:14] LABS: Hematocrit 27.2 % (35.3-44.9); Hemoglobin 8.4 g/dL (11.5-15.4)
[2020-06-13 02:37] LABS: Calcium 8.5 mg/dL (8.6-10.3); Magnesium 1.5 mg/dL (1.6-2.6); Phosphorous 3.5 mg/dL (2.7-4.5); Potassium 4.4 mEq/L (3.5-5.1)
[2020-06-13] MEDS: Levothyroxine 25 MCG TABLET PO SCH (06:35)
[2020-06-13] MEDS ORDERED: Magnesium Sulfate 1 GM/102 ML PIGGYBACK IVPB ONE (07:49)
[2020-06-13] MEDS: DilTIAZem CD (24hr) 180 MG CAP.ER.24H PO SCH (08:13)
[2020-06-13] MEDS: Isosorbide MONOnitrate (24 HR) 60 MG TAB.ER.24H PO SCH (08:13)
[2020-06-13] MEDS: CeFAZolin 2 GM/120 ML BAG IVPB SCH (08:14)
[2020-06-13] MEDS: Furosemide 20 MG TABLET PO SCH (08:14)
[2020-06-13] MEDS: Metoprolol XL (24 HR) Succ 50 MG TAB.ER.24H PO SCH (08:14)
[2020-06-13] MEDS: Olopatadine Hcl [Pataday] 2.5 ML Drops OP SCH ×2 (09:04→20:26)
[2020-06-13] MEDS ORDERED: *HR* Heparin 5,000 UNIT/ML VIAL SQ ONE (18:03)
[2020-06-13] MEDS ORDERED: Apixaban 2.5 MG TABLET PO SCH (21:00)
[2020-06-14 01:51] LABS: Basophils % 0.2 %; Eosinophils % 0.3 %; Hematocrit 25.6 % (35.3-44.9); Hemoglobin 7.9 g/dL (11.5-15.4); Immature Granulocytes % 0.3 % (0-4); Lymphocytes # 0.7 K/mcL (0.6-4.6); Lymphocytes % 11.5 %; Mean Corpuscular HGB Conc 30.9 g/dL (31.6-35.5); Mean Corpuscular Hemoglobin 29.2 pg (28.0-33.3); Mean Corpuscular Volume 94.5 fL (83.0-100.0); Mean Platelet Volume 11.5 fL (9.4-12.4); Monocytes # 0.5 K/mcL (0.0-1.3); Monocytes % 7.3 %; Platelet Count 159 K/mcL (140-400); Red Blood Count 2.71 M/mcL (3.82-4.97); Red Cell Distribution Width 13.2 % (11.5-14.5); Segmented Neutrophils % 80.4 %; White Blood Count 6.2 K/mcL (4.3-11.1)
[2020-06-14 02:24] LABS: Calcium 8.2 mg/dL (8.6-10.3); Magnesium 1.8 mg/dL (1.6-2.6); Phosphorous 3.4 mg/dL (2.7-4.5); Potassium 4.4 mEq/L (3.5-5.1)
[2020-06-14] MEDS: Levothyroxine 25 MCG TABLET PO SCH (06:21)
[2020-06-14] MEDS: Isosorbide MONOnitrate (24 HR) 60 MG TAB.ER.24H PO SCH (08:31)
[2020-06-14] MEDS: Furosemide 20 MG TABLET PO SCH (08:31)
[2020-06-14] MEDS: DilTIAZem CD (24hr) 180 MG CAP.ER.24H PO SCH (08:31)
[2020-06-14] MEDS: Metoprolol XL (24 HR) Succ 50 MG TAB.ER.24H PO SCH (08:32)
[2020-06-14] MEDS: Olopatadine Hcl [Pataday] 2.5 ML Drops OP SCH (08:32)
[2020-06-14] MEDS ORDERED: Apixaban 2.5 MG TABLET PO SCH (09:00)
[2020-06-14 10:42] VITALS: BP 110/62
== END 2020-06-14 16:50 | disposition home health service (06) | DRG 308 ==
LOC: 3NENU 14:34 → EMEROOARM 14:34 → 3NENU 22:10 → SUATTDRO 06-12 13:55
PROVIDERS: ADMIT Internal Medicine; ATTEND Internal Medicine